=== PATIENT | male | born 1955 | race Caucasian/White ===

== ENCOUNTER 2017-06-10 09:29 | Emergency (ER) | payer MEDICARE, SELFPAY ==
[2017-06-10 09:30] VITALS: BP 146/75; PULSE 77; RESP 22; TEMP 36.8; O2SAT 99; BMI 20.2
--- NOTE | 2017-06-10 09:58 | ED.VISSUMM ---
- ER Visit Summary Date of Service: 06/10/17 Chief Complaint: Left lower abdominal pain History of Present Illness: The patient is a 62 M who presents with left lower abdominal pain for approximately 2 weeks. He denies fever, chills or night sweats. He denies weight gain or weight loss. He denies nausea, vomiting diarrhea. He denies black or maroon stool. He denies dysuria, frequency, urgency or hematuria. He denies history of diverticulosis diverticulitis. Denies history of renal ureterolithiasis. There is no history of trauma. He denies prior problems with his abdomen. Upon further questioning it was determined that he is concerned because there is a family history of colon cancer. He denies any change in the color, consistency or caliber of his stool. He denies change in frequency. He does admit to smoking 1-1.5 packs of cigarettes a day. He does admit to drinking for alcoholic beverages a day and smoking 1-2 joints a day. He smokes marijuana because he does not want to take opiates for his back pain. Physical Examination: Blood pressure is elevated 146/75. He is not well groomed or capped. Head is atraumatic normocephalic. Pupils are equal round reactive. Extraocular muscles are intact. TMs are pearly white with landmarks noted. Nares patent with no drainage. Posterior pharynx without erythema or exudate. Uvula is midline. There is no dysphonia or dysphasia. Trachea is midline. There is no stridor with auscultation of the neck. Heart is regular without murmur, gallop or rub. S1 and S2 are normal. Lungs are clear to auscultation with good movement of air bilaterally. Abdomen is soft and nontender. There is no guarding or peritoneal findings. There is no palpable pulsatile mass. There is no abdominal bruit. Song sign is negative. Negative Rovsing sign. There is no evidence of inguinal or umbilical hernia. Neuro exam is nonfocal. Test Results: White count is normal with 41 segs no bands 45% lymphs. Electronic panel is unremarkable urine is normal Emergency Department Course and Treatment: To evaluate patient's left lower quadrant abdominal pain UA, CBC and BMP were obtained. Differential would include constipation, diverticular disease and urologic problems. Treatment Plan: Patient was informed the cause of his pain is unknown. With a normal white count predominately lymphocytes and a benign examination will discharge to follow-up with his PCP Dr. Bassam Bermudez. Disposition: Discharged to home with appropriate home-going instructions Impression: Left lower quadrant abdominal pain unknown etiology, initial encounter This note was generated with [employer] dictation software. It may contain incorrect words, spelling, and punctuation that were not noted in review of the chart prior to signing ED Disposition - Plan for ED Patient: Disposition: Home or Assisted Living Chief Complaint: Abd Pain Instructions: ED Abdominal Pain Unkn Cause Male Referrals: Bassam Bermudez MD [Primary Care Provider] - 3-5 Days if not improving
[2017-06-10 10:12] LABS: Absolute Lymphocyte Count 2.52 X10^3/ul (0.83-4.51); Absolute Neutrophil Count 2.3 X10^3/uL (2.0-7.7); Basophil# 0.04 X10^3/uL; Basophil% 0.7 % (0-1); Eosinophil# 0.11 X10^3/uL; Hematocrit 43.1 % (40-54); Hemoglobin 14.9 g/dl (13.0-16.5); Lymphocyte # 2.52 X10^3/ul (4.0); Mean Corp Hgb Conc 34.6 g/gl (32-36); Mean Corpuscular Hgb 32.1 pg (27.0-32.0); Mean Corpuscular Volume 92.9 fL (80-94); Mean Platelet Vol. 10.2 fl (6.2-12.0); Monocyte# 0.62 X10^3/uL; Monocyte% 11.1 % (0-10); POSITIVE COUNT NO; POSITIVE DIFFERENTIAL NO; POSITIVE MORPHOLOGY NO; Platelet Count 227 K/mm3 (150-450); RBC Distribution Width CV 13.9 % (11.6-14.6); RBC Distribution Width SD 46.2 fl (35.1-43.9); Red Blood Count 4.64 M/mm3 (4.6-6.2); White Blood Count 5.6 K/mm3 (4.4-11.0)
[2017-06-10 10:18] LABS: Anion Gap 7 (5-15); BUN 21 mg/dL (7-18); BUN/Creat Ratio 25.7 RATIO (10-20); Calcium,Total 8.6 mg/dL (8.5-10.1); Chloride 106 mmol/L (98-107); Creatinine, Serum 0.82 mg/dL (0.70-1.30); EST Glomerular Filtration Rate 102 mL/min (>60); Est Glom Filt Rate - Afr Amer 123 mL/min (>60); Estimated Creatinine Clearance 90.59 ml/min; Glucose 89 mg/dL (74-106); Potassium 4.2 mmol/L (3.5-5.1); Sodium Level 140 mmol/L (136-145)
[2017-06-10 11:06] LABS: Bacteria 0 SEEN /hpf (None Seen); Mucous, Urine 0 SEEN /hpf (<or=2+); Squamous Epithelial Cells - UA 0 SEEN /hpf (0-5); White Blood Cells 0 SEEN /hpf (0-5)
[2017-06-10 11:08] LABS: Color, Urine Yellow (Yellow); Glucose, Dipstick Normal (Normal); Ketone-Dipstick Negative (Negative); Leukocyte Esterase-Dipstick Negative /ul (Negative); Nitrite-Dipstick Negative (Negative); Occult Blood-Urine Negative /ul (Negative); Protein-Dipstick Negative (Negative); Urine Bilirubin Dipstick Negative (Negative); Urine Clarity Clear (Clear); Urine Urobilinogen Normal (Normal)
[2017-06-10 11:15] LABS: Red Blood Cells-Urine 0-5 SEEN /hpf (0-5)
[2017-06-10 12:33] VITALS: BP 151/92; PULSE 65; RESP 16; O2SAT 97
== END 2017-06-10 12:36 | disposition home or self-care (01) ==
PROVIDERS: Emergency Provider Emergency Medicine; Family Provider Family Medicine; PCP Family Medicine
DX: R10.32 Left lower quadrant pain (principal); F12.90 Cannabis use, unspecified, uncomplicated; F17.210 Nicotine dependence, cigarettes, uncomplicated; Z86.73 Personal history of transient ischemic attack (TIA), and cerebral infarction without residual deficits
CPT/HCPCS: 80048; 81001; 85025; 99283

== ENCOUNTER 2017-08-17 07:23 | Day surgery (SDC) | payer MEDICARE, SELFPAY ==
--- NOTE | 2017-08-17 | IMM_PTH ---
PATIENT: LETA PIMENTEL LOC: EN U#:[id number] AGE/SX: 62/M ROOM: RE08/17/[address]: Dr. Bryant Felix MD : 1955 BED: DIS: 08/17/2017 SPEC #: [id number] RECD: 08/19/17 12:07 STATUS: TY CHARLES #: [id number] YAZMIN: 08/17/17 00:[address]: Bryant Felix DEPT: IMMUNOHISTOCHEMISTRY RECD BY: Fatuma Barr ENTERED: 08/19/17 12:08 SP TYPE: IMMUNO OTHR DR: Dr. Ronny Dejesus MD Tissues: F - Stomach, NOS Procedures: H Pylori (initial) PHYSICIAN & INSTITUTION [place] [address] SPECIMEN INFORMATION: Tissue Source: F ? Antrum biopsy Clinical Info: LUQ pain Specimen Number: [id number] CPT code: 86180 METHODOLOGY: Deparaffinized sections of prefer/formalin-fixed tissue or PAP/DQ stained slides are incubated with monoclonal/polyclonal antibodies/oligonucleotide probes. Localization is made via biotin free immunoperoxidase method. Appropriate controls are performed and reacted as expected. Results on target cell population are indicated in the following table: RESULTS: ANTIBODY / CLONE RESULT Block F H Pylori (polyclonal) negative These tests were developed and their performance characteristics determined by [facility]. They may not have been cleared or approved by the U.S. Food and Drug Administration. The FDA has determined that such clearance or approval is not necessary. INTERPRETATION: F. Antrum, biopsy: Negative for Helicobacter pylori organisms. SJ:norma 08/19/17
--- NOTE | 2017-08-17 | COLBX_PTH ---
PATIENT: LETA PIMENTEL LOC: EN U#:[id number] AGE/SX: 62/M ROOM: RE08/17/[address]: Dr. Bryant Felix MD : 1955 BED: DIS: 08/17/2017 SPEC #: [id number] RECD: 08/17/17 11:44 STATUS: TY CHARLES #: [id number] YAZMIN: 08/17/17 00:[address]: Bryant Felix DEPT: SURGICAL PATHOLOGY RECD BY: Alexander Crockett ENTERED: 08/19/17 11:45 SP TYPE: COLON BX OTHR DR: Dr. Ronny Dejesus MD Tissues: A - Transverse colon B - Sigmoid colon biopsy C - Sigmoid colon biopsy D - Sigmoid colon biopsy E - Rectum, NOS F - Gastric mucous membrane G - Gastric mucous membrane Procedures: Special Stain Group II Surgery Specimen Level IV Alcian Blue/PAS (control) HEADER OPERATION: Colonoscopy PRE-OP DIAGNOSIS: LLQ pain, family history colon CA TISSUE SUBMITTED: A ? Transverse colon polyp, B ? 20 cm sigmoid colon polyp, C ? 15 cm mid sigmoid colon polyp, D ? 10 cm mid sigmoid colon polyp, E ? Proximal rectum polyp, F ? Antrum biopsy for H. pylori and path, G ? GE junction biopsies MICROSCOPIC DIAGNOSIS A. Transverse colon polyp: Fragments of tubular adenoma. B. 20 cm sigmoid colon polyp: Fragments of tubular adenoma. C. 15 cm mid sigmoid colon polyp: Hyperplastic polyp D. 10 cm mid sigmoid colon polyp: Tubular adenoma. E. Proximal rectum polyp: Fragments of tubular adenoma. F. Antrum, biopsy: Mild gastritis. See microscopic description and comment. G. GE junction, biopsy: Fragments of gastroesophageal mucosa with chronic inflammation. Intestinal metaplasia (goblet cell metaplasia) is not identified. See comment. SJ:norma 08/20/17 COMMENT F. The results of immunohistochemistry for Helicobacter pylori will be reported separately ([id number]). G. Alcian blue/PAS stain with matched control is used in the evaluation of the specimen. MICROSCOPIC DESCRIPTION Slides are reviewed. F. The specimen shows fragments of gastric mucosa with chronic inflammatory cell infiltrates in the lamina propria consisting of lymphocytes and plasma cells, consistent with mild chronic gastritis. GROSS DESCRIPTION A - Received in fixative is one container labeled with the patient's name and designated transverse colon polyp. The specimen consists of two irregular fragments of light alford soft tissue that in aggregate measure 0.5 x 0.3 x 0.1 cm. The specimen is totally submitted in one cassette. B - Received in fixative is one container labeled with the patient's name and designated 20 cm sigmoid colon polyp. The specimen consists of three pieces of alford-pink polyp that in aggregate measure 1.5 x 1 x 0.3 cm. The specimen is totally submitted in one cassette. C - Received in fixative is one container labeled with the patient's name and designated 15 cm mid sigmoid colon polyp. The specimen consists of one alford-pink polyp measuring 0.5 x 0.5 x 0.3 cm. The specimen is totally submitted in one cassette. D - Received in fixative is one container labeled with the patient's name and designated 10 cm mid sigmoid colon polyp. The specimen consists of one alford-pink polyp measuring 1 x 0.6 x 0.5 cm. The specimen is bisected and totally submitted in one cassette. E - Received in fixative is one container labeled with the patient's name and designated proximal rectum polyp. The specimen consists of two pieces of alford-pink polyp that in aggregate measure 1.5 x 0.5 x 0.3 cm. The specimen is totally submitted in one cassette. F - Received in fixative is one container labeled with the patient's name and designated antrum biopsy. The specimen consists of two irregular fragments of light alford soft tissue that in aggregate measure 0.6 x 0.2 x 0.1 cm. The specimen is totally submitted in one cassette. G - Received in fixative is one container labeled with the patient's name and designated GE junction biopsy. The specimen consists of multiple irregular fragments of light alford soft tissue that in aggregate measure 0.7 x 0.5 x 0.1 cm. The specimen is totally submitted in one cassette. / SJ:rg 08/17/17 TC:1 CPT: 70770 x7, 74131
--- NOTE | 2017-08-17 07:23 | DT_ITS ---
This patient was seen during an EMR downtime August 16, 2017 - August 23, 2017. This patient may have a combination of paper and electronic documentation or all paper documentation. All documentation is viewable within the e-chart portion of [facility] for each patient visit.
== END 2017-08-17 09:44 | disposition home or self-care (01) ==
LOC: EN 08-18 16:53
PROVIDERS: Family Provider Family Medicine; PCP Family Medicine; Visit Provider Surgery
PROC: 0DJD8ZZ Inspection of Lower Intestinal Tract, Via Natural or Artificial Opening Endoscopic (ICD-10-PCS; CPT 45378; principal; 2017-08-17 08:25)
DX: K21.9 Gastro-esophageal reflux disease without esophagitis (principal); Z80.0 Family history of malignant neoplasm of digestive organs; R68.81 Early satiety; D12.7 Benign neoplasm of rectosigmoid junction; D12.5 Benign neoplasm of sigmoid colon; D12.3 Benign neoplasm of transverse colon; K29.70 Gastritis, unspecified, without bleeding; R10.32 Left lower quadrant pain; R10.12 Left upper quadrant pain; I10 Essential (primary) hypertension; G25.81 Restless legs syndrome; Z86.73 Personal history of transient ischemic attack (TIA), and cerebral infarction without residual deficits; F17.200 Nicotine dependence, unspecified, uncomplicated; Z09 Encounter for follow-up examination after completed treatment for conditions other than malignant neoplasm; Z86.19 Personal history of other infectious and parasitic diseases
CPT/HCPCS: 43239; 45385; 88305; 88313; 88342; J7120

== ENCOUNTER → 2017-09-14 14:54 | Outpatient (CLI) | payer MEDICARE, SELFPAY ==
--- NOTE | 2017-09-14 11:00 | PROSBIL_PTH ---
PATIENT: LETA PIMENTEL LOC: [facility] U#:[id number] AGE/SX: 69/M ROOM: RE09/14/[address]: Dr. Dave Almanza MD : 1955 BED: DIS: SPEC #: [id number] RECD: 09/14/17 14:51 STATUS: TY CHARLES #: [id number] YAZMIN: 09/14/17 11:[address]: Dave Almanza DEPT: SURGICAL PATHOLOGY RECD BY: Colby Weiner ENTERED: 09/16/17 07:59 SP TYPE: PROST BX SORAYA DR: Dr. Ronny Dejesus MD Tissues: A - PROSTATE RIGHT B - PROSTATE RIGHT C - PROSTATE RIGHT D - PROSTATE LEFT E - PROSTATE LEFT F - PROSTATE LEFT Procedures: PROSTATE BX HEADER OPERATION: Prostate biopsy PRE-OP DIAGNOSIS: Elevated PSA TISSUE SUBMITTED: A - Right apex, B - Right mid, C - Right base, D - Left apex, E - Left mid, F - Left base MICROSCOPIC DIAGNOSIS A. Right prostate, apex, core biopsy: Adenocarcinoma: [place] grade: 6 (3+3) Cores involved: 1 out of 1 Tissue involved: >95% Greatest tumor length: 8 mm B. Right prostate, mid, core biopsy: Adenocarcinoma: [place] grade: 7 (3+4) Cores involved: 1 out of 1 Tissue involved: >95% Greatest tumor length: 14 mm C. Right prostate, base, core biopsy: Adenocarcinoma: [place] grade: 7 (3+4) Cores involved: 2 out of 2 Tissue involved: 85% Greatest tumor length: 13 mm Perineural invasion: Present D. Left prostate, apex, core biopsy: Benign prostatic tissue. E. Left prostate, mid, core biopsy: Benign prostatic tissue. F. Left prostate, base, core biopsy: Adenocarcinoma: [place] grade: 6 (3+3) Cores involved: 1 out of 1 Tissue involved: 2% Greatest tumor length: 1 mm AM:norma 09/17/17 MICROSCOPIC DESCRIPTION Slides are reviewed. GROSS DESCRIPTION A - Received is one container designated prostate, right apex. The specimen consists of one elongated fragment of light alford-white soft tissue measuring 1 cm in length and 0.1 cm in diameter. The specimen is totally submitted in one cassette. B - Received is one container designated prostate, right mid. The specimen consists of one elongated fragment of light alford-white soft tissue measuring 2 cm in length and 0.1 cm in diameter. The specimen is totally submitted in one cassette. C - Received is one container designated prostate, right base. The specimen consists of two elongated fragments of light alford-white soft tissue each measuring 1.5 cm in length and 0.1 cm in diameter. The specimen is totally submitted in one cassette. D - Received is one container designated prostate, left apex. The specimen consists of one elongated fragment of light alford-white soft tissue measuring 2 cm in length and 0.1 cm in diameter. The specimen is totally submitted in one cassette. E - Received is one container designated prostate, left mid. The specimen consists of one elongated fragment of light alford-white soft tissue measuring 1.5 cm in length and 0.1 cm in diameter. The specimen is totally submitted in one cassette. F - Received is one container designated prostate, left base. The specimen consists of two elongated fragments of light alford-white soft tissue each measuring 1 cm in length and 0.1 cm in diameter. The specimen is totally submitted in one cassette. / AM:rg 09/16/17 TC:0 CPT: G0146
== END ==
PROVIDERS: Family Provider Family Medicine; PCP Family Medicine; Visit Provider Urology
DX: R97.20 Elevated prostate specific antigen [PSA] (principal)
CPT/HCPCS: 88305; G0416

== ENCOUNTER → 2017-09-27 09:48 | Outpatient (CLI) | payer MEDICARE, SELFPAY ==
--- NOTE | 2017-09-27 09:50 | NM_ITS ---
CLINICAL: 62-year-old male with recent diagnosis of prostate carcinoma. WHOLE BODY 99m Tc MDP RADIONUCLIDE BONE SCINTIGRAPHY COMPARISON: None available FINDINGS: Following the intravenous administration of 26.0 mCi of 99m Tc MDP, whole body bone images reveal: 1. Increased radiopharmaceutical concentration is identified in the acromioclavicular compartments of both shoulders, bilateral elbows, right-left knees. 2. The remaining skeletal structures are scintigraphically unremarkable with normal-appearing renal images and urinary bladder activity identified. NM/Bone Scan Whole Body IMPRESSION: 1. The increase in radiopharmaceutical concentration defined in the right-left shoulders, bilateral elbows, both knee articulations is most consistent with degenerative arthritis. 2. There is no definitive typical scintigraphic evidence of diffuse axial skeletal metastatic disease on the current examination. Electronically Signed: Colby Gregory DO at 11:17 EDT Tel , Service support ,
== END ==
LOC: NM 09:49
PROVIDERS: Family Provider Family Medicine; PCP Family Medicine; Visit Provider Urology
DX: C61 Malignant neoplasm of prostate (principal)
CPT/HCPCS: 78306

== ENCOUNTER → 2017-10-06 13:53 | Outpatient (CLI) | payer MEDICARE, SELFPAY ==
--- NOTE | 2017-10-06 13:56 | CT_ITS ---
STUDY: CT ABDOMEN AND PELVIS WITH CONTRAST REASON FOR EXAM: Male, 62 years old. Prostate cancer RADIATION DOSAGE (If Supplied By Facility): CTDIvol = ( 9.00 ) mGy, DLP = ( 376.36 ) mGycm TECHNIQUE: Transaxial images were obtained from the dome of the diaphragm to the symphysis pubis without oral contrast. 100 ml of Isovue 300 contrast was administered. Sagittal and coronal images were reconstructed. Individualized dose optimization techniques were used for this CT. COMPARISON: None. FINDINGS: The visualized lung bases are clear. The visualized portions of the heart and pericardium are within normal limits. There are no calcified gallstones present. There are subcentimeter hypodensities in the liver which are too small to characterize. However, these likely represent cysts. There are no suspicious hepatic lesions. The spleen is normal in size. The pancreas is within normal limits. The adrenal glands are within normal limits. There are no renal or ureteral stones. There is no hydronephrosis. There are no focal renal lesions. Normal visualized stomach. There is no bowel obstruction or inflammation. The appendix is not visualized, but there are no findings to suggest acute appendicitis. The aorta is normal in caliber. There is no abdominal or pelvic free air, free fluid, fluid collection or lymphadenopathy. There are no destructive osseous lesions. CT/Abdomen/Pelvis WITH Contrast IMPRESSION: No evidence of metastatic disease in the abdomen or pelvis. Electronically Signed: Joe Whittington, at 17:12 EDT Tel , Service support ,
[2017-10-06 15:01] LABS: CREATININE FINGERSTICK < 0.6 mg/dL (0.70-1.30)
== END ==
LOC: CT 13:54
PROVIDERS: Family Provider Family Medicine; PCP Family Medicine; Visit Provider Urology
DX: C61 Malignant neoplasm of prostate (principal)
CPT/HCPCS: 74177; Q9967

== ENCOUNTER 2017-11-17 05:38 | Day surgery (SDC) | payer MEDICARE, SELFPAY ==
[2017-11-11 15:13] LABS: Hematocrit 44.8 % (40-54); Mean Corp Hgb Conc 33.5 g/gl (32-36); Mean Corpuscular Hgb 31.5 pg (27.0-32.0); Mean Corpuscular Volume 94.1 fL (80-94); Mean Platelet Vol. 10.2 fl (6.2-12.0); Platelet Count 229 K/mm3 (150-450); RBC Distribution Width CV 14.2 % (11.6-14.6); RBC Distribution Width SD 48.7 fl (35.1-43.9); Red Blood Count 4.76 M/mm3 (4.6-6.2); White Blood Count 6.6 K/mm3 (4.4-11.0)
[2017-11-11 15:21] LABS: Scan Indicated on CBC? Y/N NO
[2017-11-11 15:39] LABS: ALB/GLOB Ratio 1.3 RATIO (0.9-2.4); AST(SGOT) 13 U/L (15-37); Alanine Aminotransfer ALT/SGPT 21 U/L (16-61); Albumin, Serum 3.8 g/dL (3.2-5.0); Alkaline Phosphatase 78 U/L (45-117); Anion Gap 6 (5-15); BUN 16 mg/dL (7-18); BUN/Creat Ratio 18.6 RATIO (10-20); Calcium,Total 8.7 mg/dL (8.5-10.1); Chloride 108 mmol/L (98-107); Creatinine, Serum 0.86 mg/dL (0.70-1.30); EST Glomerular Filtration Rate 96 mL/min (>60); Est Glom Filt Rate - Afr Amer 116 mL/min (>60); Glucose 88 mg/dL (74-106); Potassium 4.3 mmol/L (3.5-5.1); Protein, Total 6.8 g/dL (6.4-8.2); Sodium Level 144 mmol/L (136-145)
[2017-11-17] VITALS (12 sets, daily range): BP systolic 95–137; BP diastolic 42–82; PULSE 57–78; RESP 16–18; TEMP 36.4–37.2; O2SAT 85–99; BMI 19.1
--- NOTE | 2017-11-17 | PROST_PTH ---
PATIENT: LETA PIMENTEL LOC: [facility] U#:[id number] AGE/SX: 62/M ROOM: RE11/17/[address]: Dr. Dave Almanza MD : 1955 BED: DIS: 11/18/2017 SPEC #: [id number] RECD: 11/17/17 09:54 STATUS: TY CHARLES #: [id number] YAZMIN: 11/17/17 00:[address]: Dave Almanza DEPT: SURGICAL PATHOLOGY RECD BY: Fatuma Barr ENTERED: 11/17/17 10:26 SP TYPE: PROSTATE OTHR DR: Dr. Ronny Dejesus MD Tissues: A - Prostate, NOS B - Prostate, NOS C - Lymph node of pelvis, NOS D - Lymph node of pelvis, NOS E - Adipose tissue F - Prostate, NOS Procedures: Frozen Section (charge) Surgery Specimen Level IV Surgery Specimen Level V Frozen (no charge) HEADER OPERATION: Laparoscopic robotic radical prostatectomy PRE-OP DIAGNOSIS: Prostate cancer, elevated PSA TISSUE SUBMITTED: A ? Anterior margin prostate sent as FS at 0950 to lab, B ? Prostate, C ? Right pelvic lymph node, D ? Left pelvic lymph node, E ? Fat over prostate, F ? Right inferior margin FROZEN SECTION DIAGNOSIS A. Right anterior prostate margin, biopsy: Negative for carcinoma. AM:norma 11/17/17 MICROSCOPIC DIAGNOSIS A. Right anterior prostate margin, biopsy: Negative for carcinoma. B. Prostate, radical prostatectomy: Adenocarcinoma. See cancer checklist below. C. Right pelvic lymph nodes, regional lymphadenectomy: Four out of four lymph nodes negative for carcinoma. D. Left pelvic lymph nodes, regional lymphadenectomy: Two out of two lymph nodes negative for carcinoma. E. Fat over prostate, biopsy: Adipose tissue. No evidence of malignancy. F. Right inferior margin, biopsy: Fragment of fibromuscular and fibrofatty tissue. No evidence of carcinoma. AM:norma 11/19/17 COMMENT PROSTATE CANCER (RADICAL) SUMMARY: Procedure ? radical prostatectomy Prostate size ? 4.5 x 4 x 3.8 cm Prostate weight ? 44 gm Lymph node sampling ? pelvic lymph node dissection (specimens C & D) Histologic type - adenocarcinoma Histologic grade ([place] Pattern): Primary pattern - 4 Secondary pattern - 3 Total [place] score - 7 Tumor Quantitation: Tumor size ? 3.8 x 2.7 x 1.5 cm Extraprostatic extension ? present, focal (right posterior lateral region) Seminal vesicle invasion ? not identified Margins ? uninvolved by invasive carcinoma. Treatment effect on carcinoma ? not identified Lymph-Vascular invasion - not identified Perineural invasion ? present, extensive Regional lymph nodes ? see specimens C and D. Number examined - 6 Number involved - 0 Distant metastasis - unknown Additional pathologic findings - Focal high-grade prostatic intraepithelial neoplasia and mild chronic inflammation. PATHOLOGIC STAGE: pT3a N0 Mx Adenocarcinoma is present in the shaved distal ureteral margin section. The above summary is in compliance with [employer] (CAP) Cancer Protocols Checklist and [place] Joint Committee on Cancer (AJCC), Staging Manual, 8th Ed. Reference is made to the patient?s previous prostate needle core biopsies ([id number]) in which adenocarcinoma, [place] grade 7 (3+4) was identified with perineural invasion. Case has been reviewed in consultation with Dr. Boswell who concurs with the above diagnosis. IDC:SJ MICROSCOPIC DESCRIPTION Slides are reviewed. GROSS DESCRIPTION A - Received fresh for frozen section consultation labeled with the patient's name is a specimen designated right anterior margin. The specimen consists of an irregular fragment of pink-alford soft tissue measuring 0.8 x 0.4 x 0.2 cm. The specimen is submitted in its entirety for frozen section consultation. / AM:norma 11/17/17 B - Received in fixative is one container labeled with the patient's name and designated prostate. The specimen consists of a prostate gland with attached right and left seminal vesicles weighing 44 gm. The prostate measures 4.5 cm transversely, 4 cm craniocaudally and 3.8 cm anterior-posteriorly. The apex of the gland is conical in shape. No mass lesions are grossly palpated. The specimen is differentially inked as follows: anterior ? red, right half ? blue, left half ? green and entire posterior surface ? black. The specimen is left for additional overnight fixation. / AM: 11/17/17 The specimen is serially sectioned from apex to base at approximately 3 to 4 mm intervals. Serial sections do not reveal a mass lesion. No distinct rubbery nodularity is identified. [employer] sections are submitted in 19 cassettes as follows: 1 ? distal urethral shaved margin, 2 ? proximal urethral shaved margin, 3 ? seminal vesicles, 4 ? most basal section of prostate, 5-7 ? apex, 8-13 ? mid portion of prostate, 14-19 ? basal portion of prostate. / AM: 11/18/17 C - Received in fixative is one container labeled with the patient's name and designated right pelvic lymph node. The specimen consists of an irregular fragment of light alford soft tissue that measures 2.5 x 2 x 0.2 cm. The specimen is submitted in its entirety in one cassette. / AM: 11/17/17 D - Received in fixative is one container labeled with the patient's name and designated left pelvic lymph node. The specimen consists of two irregular fragments of light alford soft tissue that measures 2.5 x 2 x 0.5 cm. The specimen is totally submitted in two cassettes. / AM: 11/17/17 E - Received in fixative is one container labeled with the patient's name and designated fat over prostate. The specimen consists of two irregular fragments of yellow fatty tissue that in aggregate measure 3.5 x 3 x 0.2 cm. The specimen is totally submitted in two cassettes. / AM: 11/17/17 F - Received in fixative is one container labeled with the patient's name and designated right inferior margin. The specimen consists of an irregular fragment of alford tissue measuring 0.5 x 0.2 x 0.1 cm. The specimen is totally submitted in one cassette. / AM: 11/17/17 TC:0 CPT: 61489 x3, 12695 x2, 08779
[2017-11-17] MEDS: Cefazolin 2 GM in 0.9% Normal Saline 100 ML IV (07:26)
[2017-11-17] MEDS: Bupivacaine Mpf 0.5% 30 ML VIAL (10:45)
--- NOTE | 2017-11-17 10:53 | PCM.OPRPT ---
Problem List (1) Prostate cancer Status: Acute Report of Operation Date of Procedure: 11/17/17 Pre-Operative Diagnosis: Prostate cancer Post-Operative Diagnosis: Same Surgery/Procedure Performed:: Laparoscopic robotic assisted radical prostatectomy with left nerve sparing, bilateral pelvic lymph node dissection, suture suspension of the urethra, EMG monitoring of the pelvic nerves Description of Surgical Findings:: 62-year-old male prostate cancer is elected to undergo radical prostatectomy for curative intent he understands that there is a risk of permanent loss of erections and also risk of incontinence after the surgery and we talked about the healing process and what to expect after the surgery. 62-year-old male taken back to the operating room after smooth induction of general anesthesia he was placed supine on the table he was then placed in dorsal lithotomy position with the legs in stirrups approach for a radical prostatectomy, the abdomen was shaved prepped and draped in usual sterile fashion, infiltrated above the umbilicus with lidocaine, I then made an incision above the umbilicus, I then put the Veress needle into the peritoneal cavity and into all treated the peritoneal cavity with CO2 gas and created a pneumoperitoneum. 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 I first started by identifying the anatomy he had a fairly skinny male severely easily to identify the anatomy to identify the right vas deferens traced this down below the bladder and dissected out the right vas deferens and then identified the right seminal vesicle we used minimal electrocautery as we dissected this out. I then dissected out the left vas deferens and left seminal vesicle again using very minimal electrocautery and only bipolar and dissecting this out I then created a space underneath the prostate towards the apex we then pulled out of the pelvis we dropped the bladder created the space of Retzius put the bladder on traction I then went to the right side and did the lymph node dissection on the right side cleared out the lymph node tissue between the external iliac vein lateral pelvic sidewall and obturator nerve these were identified clips were placed and electrocautery used to dissect the lymph node tissue there was no enlarged lymph nodes these were sent off appeared need to be negative. I then went to the left side again identified the left external iliac vein lateral pelvic sidewall obturator nerve dissected out the lymph node tissue in the space this was sent off as a specimen again appeared to be negative since there is no enlarged lymph nodes. Bladder was then placed on traction. I then went to the apex we incised the endopelvic fascia on both sides we cleaned the prostate off the levator muscles on both sides all the way up to the apex dissected the apex transected through the puboprostatic ligaments and support of the apical tissue of the prostate I then placed a stitch to the dorsal vein complex came back to the junction between the bladder and prostate and then dissected to the bladder and prostate using electrocautery down to the attachment of the bladder to the prostate and then dissected posteriorly until I got to the seminal vesicles and vas deferens we then placed lateral traction of the prostate in the right side came to the pedicles of the prostate in the right side and then identified the neurovascular bundle on the right side try to peel this off it is really stuck to the prostate this is the side with more cancer did not force it and only did a partial nerve sparing on that side as a came to the apex of the prostate in the right side also some rectal fibers were really stuck to the prostate he had to be carefully teased off the prostate bottom then went to the left side came to the PET the pedicle of the prostate the left side and then identified the neurovascular bundle decide the neurovascular bundle peeled off the prostate very nicely without any adherence all the way up to the apex we then transected through the dorsal vein complex I placed an extra stitch in the dorsal vein complex circumferentially dissected all the way around the urethra we know he had cancer in the apex of the prostate so very carefully identified the junction between the urethra and the apex of the prostate making sure that the leaving the muscle tissue behind her potential cancer Transected to the prostate and the urethra. And then pulled back the catheter and then try to transected the posterior aspect of the attachments of the prostate to the urethra prostate was then free put in Endo Catch bag I then inspected the rectum there was no obvious injury to the rectum we also filled the rectum with gas just to check it and there was no bubbles and no leakage. We then made sure there was hemostasis which there was and then we performed the suture suspension of the urethra. After this was done then we did check the pelvic nerves with the EMG monitoring with post put the trocar through the midline abdomen we introduced the one electrode down into the pelvis were put into the levator muscles we then checked action potential on the right side it was reported to have some minimal action potential seen we traced along the lateral pelvic wall to make sure that this was all intact which was then we went to the left side checked the action potential in the left side and there was action potential we then went to the sphincter put 1 of the EMG monitors through the sphincter and we able to see the sphincter coapted and there was good response of the sphincter. So after checking the nerves with EMG monitoring we then pulled out those electrodes I then completed these suspension of the urethra with stitches between the bladder neck and the urethra over a catheter and then once this was completed then we flushed the catheter was no leakage from the anastomosis we then extracted the prostate to the up supra umbilical port closed with the ports with stitches closer Kalia closed our 1012 trocar with a Kalia Cook stitch and then closed our umbilical port extraction site with interrupted 0 Vicryl subcuticular stitches were placed bandages were placed patient was extubated and taken back to the PACU in good condition. Type of Anesthesia:: General Drains: May - Admit VTE Documentation VTE Present on Admission: No VTE Mechan Device Prophylaxis: SCD's
[2017-11-17 11:32] LABS: Hematocrit 40.1 % (40-54); Hemoglobin 13.6 g/dl (13.0-16.5); Mean Corp Hgb Conc 33.9 g/gl (32-36); Mean Corpuscular Hgb 31.9 pg (27.0-32.0); Mean Corpuscular Volume 94.1 fL (80-94); Mean Platelet Vol. 10.1 fl (6.2-12.0); Platelet Count 200 K/mm3 (150-450); RBC Distribution Width CV 14.1 % (11.6-14.6); Red Blood Count 4.26 M/mm3 (4.6-6.2); White Blood Count 11.3 K/mm3 (4.4-11.0)
[2017-11-17 11:33] LABS: Scan Indicated on CBC? Y/N NO
[2017-11-17 11:35] LABS: Anion Gap 7 (5-15); BUN 13 mg/dL (7-18); BUN/Creat Ratio 14.3 RATIO (10-20); Calcium,Total 8.1 mg/dL (8.5-10.1); Chloride 109 mmol/L (98-107); Creatinine, Serum 0.91 mg/dL (0.70-1.30); EST Glomerular Filtration Rate 90 mL/min (>60); Est Glom Filt Rate - Afr Amer 109 mL/min (>60); Glucose 149 mg/dL (74-106); Potassium 4.8 mmol/L (3.5-5.1); Sodium Level 143 mmol/L (136-145)
--- NOTE | 2017-11-17 12:34 | NURSING ---
Pt. adamant that he get up to commode at this time= states I have to poop! Patient getting agitated and this RN assisted pt into bathroom at his time. Pt also reports feeling of need to urinate= pt reminded that he has a catheter that can make it feel like pt needs to urinate. Also reminded of surgery and that inflammation and gas- may be causing sensation. Patient adamant that he sit on commode for > 30 minutes- awaiting to complete pt's assessment. Pt. family reports no residual from TIA- just some tingling to left side that was noticed after back surgery.
[2017-11-17] MEDS: Ondansetron 4 MG/2 ML Vial IV (12:48)
[2017-11-17] MEDS: 0.9% NaCl Peripheral Flush Adult/Peds IV ×3 (12:49→17:56)
[2017-11-17] MEDS: Ketorolac 15 MG/ML Vial IV ×3 (12:57→23:33)
--- NOTE | 2017-11-17 13:31 | NURSING ---
cipro and colace held at this time due to pt request- due to nausea.
[2017-11-17] MEDS: Lactated Ringers 1,000 ML 125 ML IV ×2 (14:08→21:07)
[2017-11-17] MEDS: Docusate Sodium 100 MG Capsule 200 MG PO ×2 (14:17→21:07)
[2017-11-17] MEDS: Ciprofloxacin 500 MG Tablet PO ×2 (14:25→21:07)
[2017-11-17] MEDS: Metoclopramide 10 MG/2 ML Vial IV (17:55)
[2017-11-17] MEDS: Acetaminophen 325 MG Tablet PO (21:07)
[2017-11-18] MEDS: Lactated Ringers 1,000 ML 125 ML IV (05:17)
[2017-11-18] MEDS: Ketorolac 15 MG/ML Vial IV (05:17)
[2017-11-18 05:29] VITALS: BP 136/79; PULSE 66; RESP 16; TEMP 37.1; O2SAT 98
[2017-11-18 06:35] LABS: Hemoglobin 12.5 g/dl (13.0-16.5); Mean Corp Hgb Conc 32.9 g/gl (32-36); Mean Corpuscular Hgb 30.9 pg (27.0-32.0); Mean Corpuscular Volume 94.1 fL (80-94); Mean Platelet Vol. 10.2 fl (6.2-12.0); Platelet Count 190 K/mm3 (150-450); RBC Distribution Width CV 13.9 % (11.6-14.6); RBC Distribution Width SD 47.7 fl (35.1-43.9); Red Blood Count 4.04 M/mm3 (4.6-6.2); White Blood Count 11.3 K/mm3 (4.4-11.0)
[2017-11-18 06:40] LABS: Scan Indicated on CBC? Y/N NO
[2017-11-18 06:48] LABS: Anion Gap 8 (5-15); BUN 13 mg/dL (7-18); BUN/Creat Ratio 15.6 RATIO (10-20); Chloride 106 mmol/L (98-107); Creatinine, Serum 0.84 mg/dL (0.70-1.30); EST Glomerular Filtration Rate 99 mL/min (>60); Est Glom Filt Rate - Afr Amer 120 mL/min (>60); Estimated Creatinine Clearance 85.95 ml/min; Glucose 120 mg/dL (74-106); Potassium 3.7 mmol/L (3.5-5.1); Sodium Level 142 mmol/L (136-145)
--- NOTE | 2017-11-18 07:27 | PCM.DC.URO ---
Discharge Diet: Light diet - advance as tolerated Discharge Activity: May not drive while taking narcotic pain medications. Lifting Restrictions: no lifting Call your doctor if your incision/area has: Continuous Slow Oozing, Sudden Increased Bleeding, Increased Pain/ Swelling, Increased Redness, Foul Smelling Discharge, Swelling at the incision site Call your doctor if you observe: Fever of 101 or Higher, Inability to urinate, Inability to have a bowel movement, Uncontrolled pain Suture Line Care: Avoid Pulling/Pushing, Avoid Pinching/Bending Catheter: May to leg bag, May to large bag Drain: [place] Instructions: Discharge Instructions for Radical Prostatectomy Allergies/Adverse Reactions: Allergies No Known Allergies Allergy (Verified 11/11/17 13:33) Medications to take at Discharge Ciprofloxacin [Cipro] 500 mg PO BID #20 tab 11/17/17 Docusate Sodium [Colace] 100 mg PO BID #20 cap 11/17/17 Hydrocodone/Acetaminophen [[place] 5-325 Tablet] 1 ea PO Q4H PRN PRN 7 Days #14 tab 11/17/17 The following prescriptions were given: Hydrocodone/Acetaminophen [[place] 5-325 Tablet] 1 ea PO Q4H PRN PRN 7 Days #14 tab PRN Reason: Pain Ciprofloxacin [Cipro] 500 mg PO BID #20 tab Docusate Sodium [Colace] 100 mg PO BID #20 cap Primary Care Physician: Ronny Dejesus [Primary Care Provider] - Test Results: Test results from this visit will be discussed in further detail at your follow-up appointment, if applicable. Please Follow Up With: Dave Almanza MD When: please call to make an appointment- 10 days
[2017-11-18 09:35] VITALS: BP 135/78; PULSE 66; RESP 18; TEMP 36.9; O2SAT 99
[2017-11-18] MEDS: Ciprofloxacin 500 MG Tablet PO (09:37)
[2017-11-18] MEDS: Docusate Sodium 100 MG Capsule 200 MG PO (09:37)
== END 2017-11-18 10:05 | disposition home or self-care (01) ==
LOC: SDC 05:39 → AC 05:39 → MS2 11:32
PROVIDERS: Family Provider Family Medicine; PCP Family Medicine; Visit Provider Urology
PROC: 0VT04ZZ Resection of Prostate, Percutaneous Endoscopic Approach (ICD-10-PCS; CPT 55866; principal; 2017-11-17 07:10)
DX: C61 Malignant neoplasm of prostate (principal); N40.2 Nodular prostate without lower urinary tract symptoms; F17.210 Nicotine dependence, cigarettes, uncomplicated; F12.90 Cannabis use, unspecified, uncomplicated; Z86.73 Personal history of transient ischemic attack (TIA), and cerebral infarction without residual deficits
CPT/HCPCS: 38571; 55866; 36415; 71046; 80048; 80053; 85027; 86850; 86900; 86920; 86922; 88304; 88305; 88307; 88309; 88331; 93005; 94762; J7120; A4216; J2405

== ENCOUNTER → 2018-02-14 08:10 | Outpatient (CLI) | payer MEDICARE, SELFPAY ==
[2017-11-17 12:14] VITALS: BMI 19.1
[2018-02-14 09:45] LABS: PSA,Total- Diagnostic 0.29 ng/mL (0.0-4.0)
--- OUTSIDE RECORDS SUMMARY | 2018-04-09 08:05 | XMS RPT_ITS ---
:1955 Author Organization OHIP Care Team Providers Name Role Phone Navneet Martin Attending Unavailable Abrahan Day Primary Care Unavailable Bassam Bermudez Primary Care Unavailable Jovany Ayala Attending Unavailable Bryant Felix Attending Unavailable Bassam Bermudez Primary Care Unavailable HUBER DEJESUS Referring Unavailable Bryant Felix Attending Unavailable Bryant Felix Referring Unavailable HUBER DEJESUS Primary Care Unavailable Bryant Felix Attending Unavailable Archie, Georgi Attending Unavailable TOMCHAK, HUBER Primary Care Unavailable Archie, Georgi Attending Unavailable Archie, Georgi Referring Unavailable TOMCHAK, HUBER Primary Care Unavailable Archie, Georgi Attending Unavailable Archie, Dave Lemons Referring Unavailable TOMCHAK, HUBER Primary Care Unavailable Archie, Dave Lemons Attending Unavailable TOMCHAK, HUBER Primary Care Unavailable Archie, Dave Lemons Referring Unavailable Jc Rigoberto Attending Unavailable Archie, Dave Lemons Referring Unavailable Archie, Dave Lemons Attending Unavailable TOMCHAK, HUBER Primary Care Unavailable Archie, Dave Lemons Referring Unavailable PROBLEMS PROBLEMS DATE TYPE CONDITION / CODE ATTENDING STATUS SOURCE 11/18/2017 Unknown C61 - Malignant ArchieDave youssef Active [facility] neoplasm of prostate / [facility] C61(ICD-10) Hospital Repository 12/10/2017 Unknown R00.1 - BradycardiaJc Daniel Active [facility] unspecified / [facility] R00.1(ICD-10) Hospital Repository 12/10/2017 Unknown R94.31 - Abnormal Rigoberto Tyler Active [facility] electrocardiogram [facility] [ECG] [EKG] / Hospital R94.31(ICD-10) Repository 09/08/2017 Unknown R10.12 - Left upper [place], Active [facility] quadrant pain / [facility] R10.12(ICD-10) Hospital Repository 09/08/2017 Unknown R10.32 - Left lower [place], Active [facility] quadrant pain / [facility] R10.32(ICD-10) Hospital Repository 08/02/2017 Unknown Z80.0 - Family history Isidro, Active [facility] of malignant neoplasm [facility] of digestive organs / Hospital Z80.0(ICD-10) Repository PROCEDURES PROCEDURES No Procedure Records FoundRESULTS RESULTS PSA,TOTAL- DIAGNOSTIC Collected: 02/14/2018 Status: F Source: [facility] 8[facility] TYPE CODE TESTS RESULT OUT OF RANGE REFERENCE UNITS LAB L501.9940 0.0-4.0 ng/mL PSA, Normal DIAGNOSTIC 0.29 Result Comment: This test was performed using the TPSA assay method for the [place] chemistry system. Values obtained with different assay methods cannot be used interchangably. When changing PSA assays in the course of monitoring a patient, additional sequential testing should be carried out to confirm baseline values. Performed By: #### L501.9940 #### [facility] [address] [place], [address] DISCHARGE INSTRUCTION Observed: 11/18/2017 Status: F Source: MANDI 7:28 AM [facility] REPOSITORY [facility] Medical Records Department [address] [place] [address] Instructions for Home/Discharge Instructions 11/18/17 0727 MR#: [id number] Acct: [id number] Name: LETA PIMENTEL Rep #: [id number] : 1955 62 From: Dave Almanza MD PCP: Huber Dejesus MD Status: REG [facility] Discharge Diet: Light diet - advance as tolerated Discharge Activity: May not drive while taking narcotic pain medications. Lifting Restrictions: no lifting Call your doctor if your incision/area has: Continuous Slow Oozing, Sudden Increased Bleeding, Increased Pain/ Swelling, Increased Redness, Foul Smelling Discharge, Swelling at the incision site Call your doctor if you observe: Fever of 101 or Higher, Inability to urinate, Inability to have a bowel movement, Uncontrolled pain Suture Line Care: Avoid Pulling/Pushing, Avoid Pinching/Bending Catheter: May to leg bag, May to large bag Drain: [place] Instructions: Discharge Instructions for Radical Prostatectomy Allergies/Adverse Reactions: Allergies No Known Allergies Allergy (Verified 11/11/17 13:33) Medications to take at Discharge Ciprofloxacin [Cipro] 500 mg PO BID #20 tab 11/17/17 Docusate Sodium [Colace] 100 mg PO BID #20 cap 11/17/17 Hydrocodone/Acetaminophen [[place] 5-325 Tablet] 1 ea PO Q4H PRN PRN 7 Days #14 tab 11/17/17 The following prescriptions were given: Hydrocodone/Acetaminophen [[place] 5-325 Tablet] 1 ea PO Q4H PRN PRN 7 Days #14 tab PRN Reason: Pain Ciprofloxacin [Cipro] 500 mg PO BID #20 tab Docusate Sodium [Colace] 100 mg PO BID #20 cap Primary Care Physician: Huber Dejesus [Primary Care Provider] - Test Results: Test results from this visit will be discussed in further detail at your follow-up appointment, if applicable. Please Follow Up With: Dave Almanza MD When: please call to make an appointment- 10 days 11/18/17 0728 <Electronically signed by Dave Almanza MD> Date Dave Almanza MD CC: Huber Dejesus MD CBC-COMPLETE BLOOD CNT Collected: 11/18/2017 Status: F Source: MANDI NO DIFF 6:14 AM [facility] REPOSITORY TYPE CODE TESTS RESULT OUT OF RANGE REFERENCE UNITS LAB L100.1000 4.4-11.0 K/mm3 High WBC 11.3 LAB L100.1200 4.6-6.2 M/mm3 Low RBC 4.04 LAB L100.1300 13.0-16.5 g/dl Low HGB 12.5 LAB L100.1400 40-54 % Low HCT 38.0 LAB L100.1500 80-94 fL High MCV 94.1 LAB L100.1600 27.0-32.0 pg Normal MCH 30.9 LAB L100.1700 32-36 g/gl Normal MCHC 32.9 LAB L100.1810 11.6-14.6 % Normal RDW CV 13.9 LAB L100.1820 35.1-43.9 fl High RDW SD 47.7 LAB L100.1900 150-450 K/mm3 Normal PLT 190 LAB L100.2000 6.2-12.0 fl Normal MPV 10.2 Performed By: #### L100.0500 #### [facility] [address] [place], [address] BASIC METABOLIC Collected: 11/18/2017 Status: F Source: MANDI PROFILE (BMP) 6:14 AM [facility] REPOSITORY TYPE CODE TESTS RESULT OUT OF RANGE REFERENCE UNITS LAB L501.0100 74-106 mg/dL High GLU 120 Result Comment: Fasting Glucose result from 100 to 125 mg/dL suggests IMPAIRED HOMEOSTASIS per A.D.A. criteria. Please note revised GLUCOSE reference range effective 2017. LAB L501.1000 7-18 mg/dL Normal BUN 13 LAB L501.1100 0.70-1.30 mg/dL Normal CREAT,SERUM 0.84 Result Comment: The validity of the calculated GFR AND GFRAA in patients over 70 years has not been determined. Clinical correlation is essential. LAB L501.1110 >60 mL/min Normal EST GFR 99 Result Comment: Non- GFR Calc LAB L501.1115 >60 mL/min Normal EST GFR - AA 120 Result Comment: GFR Calc LAB L501.1255 ml/min Normal Estimated CRCL 85.95 LAB L501.1300 10-20 RATIO Normal BUN/CRE 15.6 LAB L501.2200 8.5-10 mg/dL Low .1 CA 8.0 LAB L501.5300 136-14 mmol/L Normal 5 NA 142 LAB L501.5600 3.5-5. mmol/L Normal 1 K 3.7 LAB L501.5900 98-107 mmol/L Normal CL 106 LAB L501.6100 21.0-3 mmol/L Normal 2.0 CO2 28.0 LAB L501.6200 5-15 Normal GAP 8 Performed By: #### L500.2500 #### [facility] [address] [place], [address] CBC-COMPLETE BLOOD CNT Collected: 11/17/2017 Status: F Source: SEVEN MILE NO DIFF 11:16 AM [facility] REPOSITORY Order Comment: Comments: To be done in PACU TYPE CODE TESTS RESULT OUT OF RANGE REFERENCE UNITS LAB L100.1000 4.4-11.0 K/mm3 High WBC 11.3 LAB L100.1200 4.6-6.2 M/mm3 Low RBC 4.26 LAB L100.1300 13.0-16.5 g/dl Normal HGB 13.6 LAB L100.1400 40-54 % Normal HCT 40.1 LAB L100.1500 80-94 fL High MCV 94.1 LAB L100.1600 27.0-32.0 pg Normal MCH 31.9 LAB L100.1700 32-36 g/gl Normal MCHC 33.9 LAB L100.1810 11.6-14.6 % Normal RDW CV 14.1 LAB L100.1820 35.1-43.9 fl High RDW SD 47.0 LAB L100.1900 150-450 K/mm3 Normal PLT 200 LAB L100.2000 6.2-12.0 fl Normal MPV 10.1 Performed By: #### L100.0500 #### [facility] [address] [place], [address] BASIC METABOLIC Collected: 11/17/2017 Status: F Source: MANDI PROFILE (BMP) 11:16 AM [facility] REPOSITORY Order Comment: Comments: To be done in PACU TYPE CODE TESTS RESULT OUT OF RANGE REFERENCE UNITS LAB L501.0100 74-106 mg/dL High GLU 149 Result Comment: Fasting Glucose result greater than or equal to 126 mg/dL suggests DIABETES MELLITUS per A.D.A. criteria. Please note revised GLUCOSE reference range effective 2017. LAB L501.1000 7-18 mg/dL Normal BUN 13 LAB L501.1100 0.70-1.30 mg/dL Normal CREAT,SERUM 0.91 Result Comment: The validity of the calculated GFR AND GFRAA in patients over 70 years has not been determined. Clinical correlation is essential. LAB L501.1110 >60 mL/min Normal EST GFR 90 Result Comment: Non- GFR Calc LAB L501.1115 >60 mL/min Normal EST GFR - AA 109 Result Comment: GFR Calc LAB L501.1255 ml/min Normal Estimated CRCL 79.30 LAB L501.1300 10-20 RATIO Normal BUN/CRE 14.3 LAB L501.2200 8.5-10 mg/dL Low .1 CA 8.1 LAB L501.5300 136-14 mmol/L Normal 5 NA 143 LAB L501.5600 3.5-5. mmol/L Normal 1 K 4.8 LAB L501.5900 98-107 mmol/L High CL 109 LAB L501.6100 21.0-3 mmol/L Normal 2.0 CO2 27.0 LAB L501.6200 5-15 Normal GAP 7 Performed By: #### L500.2500 #### [facility] [address] [place], [address] OPERATIVE REPORT Observed: 11/17/2017 Status: F Source: MANDI 11:01 AM [facility] REPOSITORY [facility] Medical Records Department [address] [place] [address] Operative Report 11/17/17 1053 MR#: [id number] Acct: [id number] Name: LETA PIMENTEL Rep #: [id number] : 1955 62 From: Dave Almanza MD PCP: Huber Dejesus MD Status: REG SDC Y Location: [place] [address] Problem List (1) Prostate cancer Status: Acute Report of Operation Date of Procedure: 11/17/17 Pre-Operative Diagnosis: Prostate cancer Post-Operative Diagnosis: Same Surgery/Procedure Performed:: Laparoscopic robotic assisted radical prostatectomy with left nerve sparing, bilateral pelvic lymph node dissection, suture suspension of the urethra, EMG monitoring of the pelvic nerves Description of Surgical Findings:: 62-year-old male prostate cancer is elected to undergo radical prostatectomy for curative intent he understands that there is a risk of permanent loss of erections and also risk of incontinence after the surgery and we talked about the healing process and what to expect after the surgery. 62-year-old male taken back to the operating room after smooth induction of general anesthesia he was placed supine on the table he was then placed in dorsal lithotomy position with the legs in stirrups approach for a radical prostatectomy, the abdomen was shaved prepped and draped in usual sterile fashion, infiltrated above the umbilicus with lidocaine, I then made an incision above the umbilicus, I then put the Veress needle into the peritoneal cavity and into all treated the peritoneal cavity with CO2 gas and created a pneumoperitoneum. We then docked our camera port right arm port and 2 left arm ports a cyst assistant sales manager suction port and the air seal port. I first started by identifying the anatomy he had a fairly skinny male severely easily to identify the anatomy to identify the right vas deferens traced this down below the bladder and dissected out the right vas deferens and then identified the right seminal vesicle we used minimal electrocautery as we dissected this out. I then dissected out the left vas deferens and left seminal vesicle again using very minimal electrocautery and only bipolar and dissecting this out I then created a space underneath the prostate towards the apex we then pulled out of the pelvis we dropped the bladder created the space of Retzius put the bladder on traction I then went to the right side and did the lymph node dissection on the right side cleared out the lymph node tissue between the external iliac vein lateral pelvic sidewall and obturator nerve these were identified clips were placed and electrocautery used to dissect the lymph node tissue there was no enlarged lymph nodes these were sent off appeared need to be negative. I then went to the left side again identified the left external iliac vein lateral pelvic sidewall obturator nerve dissected out the lymph node tissue in the space this was sent off as a specimen again appeared to be negative since there is no enlarged lymph nodes. Bladder was then placed on traction. I then went to the apex we incised the endopelvic fascia on both sides we cleaned the prostate off the levator muscles on both sides all the way up to the apex dissected the apex transected through the puboprostatic ligaments and support of the apical tissue of the prostate I then placed a stitch to the dorsal vein complex came back to the junction between the bladder and prostate and then dissected to the bladder and prostate using electrocautery down to the attachment of the bladder to the prostate and then dissected posteriorly until I got to the seminal vesicles and vas deferens we then placed lateral traction of the prostate in the right side came to the pedicles of the prostate in the right side and then identified the neurovascular bundle on the right side try to peel this off it is really stuck to the prostate this is the side with more cancer did not force it and only did a partial nerve sparing on that side as a came to the apex of the prostate in the right side also some rectal fibers were really stuck to the prostate he had to be carefully teased off the prostate bottom then went to the left side came to the PET the pedicle of the prostate the left side and then identified the neurovascular bundle decide the neurovascular bundle peeled off the prostate very nicely without any adherence all the way up to the apex we then transected through the dorsal vein complex I placed an extra stitch in the dorsal vein complex circumferentially dissected all the way around the urethra we know he had cancer in the apex of the prostate so very carefully identified the junction between the urethra and the apex of the prostate making sure that the leaving the muscle tissue behind her potential cancer Transected to the prostate and the urethra. And then pulled back the catheter and then try to transected the posterior aspect of the attachments of the prostate to the urethra prostate was then free put in Endo Catch bag I then inspected the rectum there was no obvious injury to the rectum we also filled the rectum with gas just to check it and there was no bubbles and no leakage. We then made sure there was hemostasis which there was and then we performed the suture suspension of the urethra. After this was done then we did check the pelvic nerves with the EMG monitoring with post put the trocar through the midline abdomen we introduced the one electrode down into the pelvis were put into the levator muscles we then checked action potential on the right side it was reported to have some minimal action potential seen we traced along the lateral pelvic wall to make sure that this was all intact which was then we went to the left side checked the action potential in the left side and there was action potential we then went to the sphincter put 1 of the EMG monitors through the sphincter and we able to see the sphincter coapted and there was good response of the sphincter. So after checking the nerves with EMG monitoring we then pulled out those electrodes I then completed these suspension of the urethra with stitches between the bladder neck and the urethra over a catheter and then once this was completed then we flushed the catheter was no leakage from the anastomosis we then extracted the prostate to the up supra umbilical port closed with the ports with stitches closer Kalia closed our 1012 trocar with a Kalia Cook stitch and then closed our umbilical port extraction site with interrupted 0 Vicryl subcuticular stitches were placed bandages were placed patient was extubated and taken back to the PACU in good condition. Type of Anesthesia:: General Drains: May - Admit VTE Documentation VTE Present on Admission: No VTE Mechan Device Prophylaxis: SCD's 11/17/17 1101 <Electronically signed by Dave Almanza MD> Date Dave Almanza MD CC: Huber Dejesus MD; Dave Almanza MD Signed PROSTATE RADICAL Observed: 11/17/2017 Status: F Source: M[facility]I RESECTION 12:00 AM [facility] REPOSITORY Patient: LETA PIMENTEL : 1955 (62/M) Acct Num: [id number] Phys: Archie DEGROOT,Dave Lemons Unit Num: [id number] Loc: [facility] Specimen: [id number] Received: 11/17/17953 Spec Type: PROSTATE TISSUES TISSUES: A. Prostate, NOS B. Prostate, NOS C. Lymph node of pelvis, NOS D. Lymph node of pelvis, NOS E. Adipose tissue F. Prostate, NOS COMMENT PROSTATE CANCER (RADICAL) SUMMARY: Procedure radical prostatectomy Prostate size 4.5 x 4 x 3.8 cm Prostate weight 44 gm Lymph node sampling pelvic lymph node dissection (specimens C AND D) Histologic type - adenocarcinoma Histologic grade (Osmond Pattern): Primary pattern - 4 Secondary pattern - 3 Total Osmond score - 7 Tumor Quantitation: Tumor size 3.8 x 2.7 x 1.5 cm Extraprostatic extension present, focal (right posterior lateral region) Seminal vesicle invasion not identified Margins uninvolved by invasive carcinoma. Treatment effect on carcinoma not identified Lymph-Vascular invasion - not identified Perineural invasion present, extensive Regional lymph nodes see specimens C and D. Number examined - 6 Number involved - 0 Distant metastasis - unknown Additional pathologic findings - Focal high-grade prostatic intraepithelial neoplasia and mild chronic inflammation. PATHOLOGIC STAGE: pT3a N0 Mx Adenocarcinoma is present in the shaved distal ureteral margin section. The above summary is in compliance with College [employer] (CAP) Cancer Protocols Checklist and [place] Joint Committee on Cancer (AJCC), Staging Manual, 8th Ed. Reference is made to the patient s previous prostate needle core biopsies (S15- 7050) in which adenocarcinoma, Osmond grade 7 (3+4) was identified with perineural invasion. Case has been reviewed in consultation with Dr. Boswell who concurs with the above diagnosis. IDC:SJ FROZEN SECTION DIAGNOSIS A. Right anterior prostate margin, biopsy: Negative for carcinoma. AM: 11/17/17 GROSS DESCRIPTION A - Received fresh for frozen section consultation labeled with the patient's name is a specimen designated right anterior margin. The specimen consists of an irregular fragment of pink-alford soft tissue measuring 0.8 x 0.4 x 0.2 cm. The specimen is submitted in its entirety for frozen section consultation. / AM: 11/17/17 B - Received in fixative is one container labeled with the patient's name and designated prostate. The specimen consists of a prostate gland with attached right and left seminal vesicles weighing 44 gm. The prostate measures 4.5 cm transversely, 4 cm craniocaudally and 3.8 cm anterior-posteriorly. The apex of the gland is conical in shape. No mass lesions are grossly palpated. The specimen is differentially inked as follows: anterior red, right half blue, left half green and entire posterior surface black. The specimen is left for additional overnight fixation. / AM: 11/17/17 The specimen is serially sectioned from apex to base at approximately 3 to 4 mm intervals. Serial sections do not reveal a mass lesion. No distinct rubbery nodularity is identified. Strip Cleaner sections are submitted in 19 cassettes as follows: 1 distal urethral shaved margin, 2 proximal urethral shaved margin, 3 seminal vesicles, 4 most basal section of prostate, 5-7 apex, 8- 13 mid portion of prostate, 14-19 basal portion of prostate. / AM: C - Received in fixative is one container labeled with the patient's name and designated right pelvic lymph node. The specimen consists of an irregular fragment of light alford soft tissue that measures 2.5 x 2 x 0.2 cm. The specimen is submitted in its entirety in one cassette. / AM: 11/17/17 D - Received in fixative is one container labeled with the patient's name and designated left pelvic lymph node. The specimen consists of two irregular fragments of light alford soft tissue that measures 2.5 x 2 x 0.5 cm. The specimen is totally submitted in two cassettes. / AM: 11/17/17 E - Received in fixative is one container labeled with the patient's name and designated fat over prostate. The specimen consists of two irregular fragments of yellow fatty tissue that in aggregate measure 3.5 x 3 x 0.2 cm. The specimen is totally submitted in two cassettes. / AM: 11/17/17 F - Received in fixative is one container labeled with the patient's name and designated right inferior margin. The specimen consists of an irregular fragment of alford tissue measuring 0.5 x 0.2 x 0.1 cm. The specimen is totally submitted in one cassette. / AM: 11/17/17 TC:0 CPT: 39950 x3, 54662 x2, 93964 HEADER OPERATION: Laparoscopic robotic radical prostatectomy PRE-OP DIAGNOSIS: Prostate cancer, elevated PSA TISSUE SUBMITTED: A Anterior margin prostate sent as FS at 0950 to lab, B Prostate, C Right pelvic lymph node, D Left pelvic lymph node, E Fat over prostate, F Right inferior margin MICROSCOPIC DESCRIPTION Slides are reviewed. MICROSCOPIC DIAGNOSIS A. Right anterior prostate margin, biopsy: Negative for carcinoma. B. Prostate, radical prostatectomy: Adenocarcinoma. See cancer checklist below. C. Right pelvic lymph nodes, regional lymphadenectomy: Four out of four lymph nodes negative for carcinoma. D. Left pelvic lymph nodes, regional lymphadenectomy: Two out of two lymph nodes negative for carcinoma. E. Fat over prostate, biopsy: Adipose tissue. No evidence of malignancy. F. Right inferior margin, biopsy: Fragment of fibromuscular and fibrofatty tissue. No evidence of carcinoma. AM:rg 11/19/17 PSA RESULTS No results available. Signed Hang Ralph 11/19/17 <signature on file> Performed By: #### PPROST #### [facility] [address] [place] [address]. [place], [address] 12 LEAD ELECTROCARDIOGRAM Observed: 11/16/2017 Status: F Source: SEVEN MILE 1:29 PM [facility] REPOSITORY [facility] Cardiovascular Services [address] [place] [id number] 12 Lead EKG 11/11/17 1504 MR#: [id number] Acct: [id number] Name: LETA PIMENTEL Rep #: [id number] : 1955 62 From: Rigoberto Tyler MD Attending Dr: Archie DEGROOT,Dave Lemons Status: PRE LAC Ordering Dr: Dave Almanza MD Date: 11/11/17 Location: [facility] Sex: M C Admitted: Test Reason : PRE-OP Blood Pressure : / mmHG Vent. Rate : 055 BPM Atrial Rate : 055 BPM P-R Int : 160 ms QRS Dur : 094 ms QT Int : 406 ms P-R-T Axes : 076 -70 057 degrees QTc Int : 388 ms Sinus bradycardia Left axis deviation Incomplete right bundle branch block Cannot rule out Anteroseptal infarct , age undetermined Abnormal ECG Confirmed by RIGOBERTO TYLER ([id number]), food editor ULICES DUNLAP ([id number]) on 11/16/2017 1:29:09 PM Referred By: Dave Almanza Confirmed By:RIGOBERTO TYLER 11/16/17 1329 Date Rigoberto Tyler MD CC: Huber Dejesus MD; Dave Almanza MD Signed CHEST PA AND LATERAL Observed: 11/11/2017 Status: F Source: MANDI 3:08 PM [facility] REPOSITORY [facility] Imaging Services [address] [place] [address] Chest PA and Lateral MR#: [id number] Acct: [id number] Name: LETA PIMENTEL Rep #: [id number] : 1955 M 62 From: Jesus Nogurea MD PCP: Huber Dejesus MD Status: PRE [facility] Study: Chest PA and Lateral Date of Exam: 11/11/17 Exam# [id number] Ordering Dr: Dave Almanza MD STUDY: X-RAY CHEST REASON FOR EXAM: Male, 62 years old. Preop for prostatectomy, smoker. TECHNIQUE: PA and lateral views of the chest on 3 films. COMPARISON: 2 portable AP views of the chest April 19, 2016. FINDINGS: There is hyperinflation of the lungs consistent with chronic obstructive lung disease (COPD). Small calcified granuloma projects in the retrosternal airspace on the lateral view, but is not clearly localized on the frontal image. There is no demonstrated pleural abnormality. Normal size heart. Normal mediastinum and karen. Normal visualized pulmonary arteries. Normal visualized aortic arch and descending thoracic aorta. Normal visualized thoracic spine. Metal hardware of prior anterior fusion lower cervical spine again noted. Normal visualized ribs, clavicles, and shoulders. There is no demonstrated abnormality of the visualized soft tissue structures of the upper abdomen. RAD/Chest PA and Lateral IMPRESSION: Hyperexpanded, consistent with obstructive pulmonary disease. No acute infiltrate or CHF. Electronically Signed: Otf Noguera MD at 22:24 EDT , Service support , CC: Huber Dejesus MD; Dave Almanza MD Pulley Mortiser Operator: Signed CBC-COMPLETE BLOOD CNT Collected: 11/11/2017 Status: F Source: MANDI NO DIFF 2:40 PM [facility] REPOSITORY TYPE CODE TESTS RESULT OUT OF RANGE REFERENCE UNITS LAB L100.1000 4.4-11.0 K/mm3 Normal WBC 6.6 LAB L100.1200 4.6-6.2 M/mm3 Normal RBC 4.76 LAB L100.1300 13.0-16.5 g/dl Normal HGB 15.0 LAB L100.1400 40-54 % Normal HCT 44.8 LAB L100.1500 80-94 fL High MCV 94.1 LAB L100.1600 27.0-32.0 pg Normal MCH 31.5 LAB L100.1700 32-36 g/gl Normal MCHC 33.5 LAB L100.1810 11.6-14.6 % Normal RDW CV 14.2 LAB L100.1820 35.1-43.9 fl High RDW SD 48.7 LAB L100.1900 150-450 K/mm3 Normal PLT 229 LAB L100.2000 6.2-12.0 fl Normal MPV 10.2 Performed By: #### L100.0500 #### [facility] [address] [place], [address] COMPREHENSIVE METABOLIC Collected: 11/11/2017 Status: F Source: MANDI PROFIL 2:40 PM [facility] REPOSITORY TYPE CODE TESTS RESULT OUT OF RANGE REFERENCE UNITS LAB L501.0100 74-106 mg/dL Normal GLU 88 Result Comment: Please note revised GLUCOSE reference range effective 2017. LAB L501.1000 7-18 mg/dL Normal BUN 16 LAB L501.1100 0.70-1.30 mg/dL Normal CREAT,SERUM 0.86 Result Comment: The validity of the calculated GFR AND GFRAA in patients over 70 years has not been determined. Clinical correlation is essential. LAB L501.1110 >60 mL/min Normal EST GFR 96 Result Comment: Non- GFR Calc LAB L501.1115 >60 mL/min Normal EST GFR - AA 116 Result Comment: GFR Calc LAB L501.1300 10-20 RATIO Normal BUN/CRE 18.6 LAB L501.1500 6.4-8.2 g/dL T Normal PROT 6.8 LAB L501.1800 3.2-5.0 g/dL Normal ALB 3.8 LAB L501.1950 2.2-4.2 g/dL Normal GLOB 3.0 LAB L501.2000 0.9-2.4 RATIO Normal A/G 1.3 LAB L501.2200 8.5-10.1 mg/dL CA Normal 8.7 LAB L501.4100 15-37 U/L Low AST 13 LAB L501.4305 45-117 U/L Normal ALK P 78 LAB L501.4405 16-61 U/L Normal ALT 21 LAB L501.4600 0.20-1.00 mg/dL T Normal BILI 0.30 LAB L501.5300 136-145 mmol/L NA Normal 144 LAB L501.5600 3.5-5.1 mmol/L K Normal 4.3 LAB L501.5900 98-107 mmol/L High CL 108 LAB L501.6100 21.0-32.0 mmol/L Normal CO2 30.0 LAB L501.6200 5-15 Normal GAP 6 Performed By: #### L500.4050 #### [facility] [address] [facility] [address] [facility]. [place], [place], [id number] TYPE AND SCREEN Collected: 11/11/2017 Status: F Source: [place] 2:40 PM [facility] REPOSITORY Order Comment: Surgery Date: 11/17/17 Hx of Preganancy in last 3 Months No Ever experience any problems with transfusion(s)? N Hx of Transfusion in last 3 Months N CMV NEG?* N Give When? When Ready Irradiated? N Leukodepleted? Y Reason for Type AND Screen/Red Cells: SURGERY Surgery Date: 11/17/17 Time: 0000 SURGICAL PROCEDURE: 28688 Type of Surgery: RADICAL PROSTATECTOMY TYPE CODE TESTS RESULT OUT OF RANGE REFERENCE UNITS LAB B10.0800 A Normal BLOOD TYPE GEL POSITIVE LAB B100.4000 Normal Antibody NEGATIVE Screen Performed By: #### B101.7475 #### [facility] [address] [place], [place], [address] CREATININE FINGERSTICK Collected: 10/06/2017 Status: F Source: MANDI 2:34 PM [facility] REPOSITORY TYPE CODE TESTS RESULT OUT OF REFERENCE UNITS RANGE LAB L9100.0210 0.70-1.30 mg/dL Low CREATININE WB < 0.6 Performed By: #### L9100.0200 #### [facility] Point of Care [address] [place], [place] [id number] ABDOMEN/PELVIS WITH Observed: 10/06/2017 Status: F Source: MANDI CONTRAST 1:57 PM [facility] REPOSITORY [facility] Imaging Services [address] [place] [address] Abdomen/Pelvis WITH Contrast MR#: [id number] Acct: [id number] Name: LETA PIMENTEL Rep #: [id number] : 1955 M 62 From: Joe Whittington MD PCP: HUBER DEJESUS Status: REG CLI Study: Abdomen/Pelvis WITH Contrast Date of Exam: 10/06/17 Exam# [id number] Ordering Dr: Dave Almanza MD STUDY: CT ABDOMEN AND PELVIS WITH CONTRAST REASON FOR EXAM: Male, 62 years old. Prostate cancer RADIATION DOSAGE (If Supplied By Facility): CTDIvol = ( 9.00 ) mGy, DLP = ( 376.36 ) mGycm TECHNIQUE: Transaxial images were obtained from the dome of the diaphragm to the symphysis pubis without oral contrast. 100 ml of Isovue 300 contrast was administered. Sagittal and coronal images were reconstructed. Individualized dose optimization techniques were used for this CT. COMPARISON: None. FINDINGS: The visualized lung bases are clear. The visualized portions of the heart and pericardium are within normal limits. There are no calcified gallstones present. There are subcentimeter hypodensities in the liver which are too small to characterize. However, these likely represent cysts. There are no suspicious hepatic lesions. The spleen is normal in size. The pancreas is within normal limits. The adrenal glands are within normal limits. There are no renal or ureteral stones. There is no hydronephrosis. There are no focal renal lesions. Normal visualized stomach. There is no bowel obstruction or inflammation. The appendix is not visualized, but there are no findings to suggest acute appendicitis. The aorta is normal in caliber. There is no abdominal or pelvic free air, free fluid, fluid collection or lymphadenopathy. There are no destructive osseous lesions. CT/Abdomen/Pelvis WITH Contrast IMPRESSION: No evidence of metastatic disease in the abdomen or pelvis. Electronically Signed: Joe Whittington, at 17:12 EDT Tel , Service support , CC: HUBER DEJESUS; Dave Almanza MD Pulley Mortiser Operator: Signed BONE SCAN WHOLE Observed: 09/27/2017 Status: F Source: SEVEN MILE BODY 9:51 AM [facility] REPOSITORY [facility] Imaging Services [address] [place] [address] Bone Scan Whole Body MR#: [id number] Acct: [id number] Name: LETA PIMENTEL Rep #: [id number] : 1955 M 62 From: Colby Gregory DO PCP: HUBER DEJESUS Status: REG CLI Study: Bone Scan Whole Body Date of Exam: 09/27/17 Exam# [id number] Ordering Dr: Dave Almanza MD CLINICAL: 62-year-old male with recent diagnosis of prostate carcinoma. WHOLE BODY 99m Tc MDP RADIONUCLIDE BONE SCINTIGRAPHY COMPARISON: None available FINDINGS: Following the intravenous administration of 26.0 mCi of 99m Tc MDP, whole body bone images reveal: 1. Increased radiopharmaceutical concentration is identified in the acromioclavicular compartments of both shoulders, bilateral elbows, right-left knees. 2. The remaining skeletal structures are scintigraphically unremarkable with normal-appearing renal images and urinary bladder activity identified. NM/Bone Scan Whole Body IMPRESSION: 1. The increase in radiopharmaceutical concentration defined in the right-left shoulders, bilateral elbows, both knee articulations is most consistent with degenerative arthritis. 2. There is no definitive typical scintigraphic evidence of diffuse axial skeletal metastatic disease on the current examination. Electronically Signed: Colby Gregory DO at 11:17 EDT Tel , Service support , CC: HUBER DEJESUS; Dave Almanza MD Pulley Mortiser Operator: Signed PROSTATE BIOPSY Observed: 09/14/2017 Status: F Source: MANDI BILATERAL 11:00 AM [facility] REPOSITORY Patient: LETA PIMENTEL : 1955 (62/M) Acct Num: [id number] Phys: Archie DEGROOT,Dave Lemons Unit Num: [id number] Loc: LABSPEC Specimen: [id number] Received: 09/14/17 - 1451 Spec Type: PROST BX TISSUES TISSUES: A. PROSTATE RIGHT B. PROSTATE RIGHT C. PROSTATE RIGHT D. PROSTATE LEFT E. PROSTATE LEFT F. PROSTATE LEFT GROSS DESCRIPTION A - Received is one container designated prostate, right apex. The specimen consists of one elongated fragment of light alford-white soft tissue measuring 1 cm in length and 0.1 cm in diameter. The specimen is totally submitted in one cassette. B - Received is one container designated prostate, right mid. The specimen consists of one elongated fragment of light alford-white soft tissue measuring 2 cm in length and 0.1 cm in diameter. The specimen is totally submitted in one cassette. C - Received is one container designated prostate, right base. The specimen consists of two elongated fragments of light alford-white soft tissue each measuring 1.5 cm in length and 0.1 cm in diameter. The specimen is totally submitted in one cassette. D - Received is one container designated prostate, left apex. The specimen consists of one elongated fragment of light alford-white soft tissue measuring 2 cm in length and 0.1 cm in diameter. The specimen is totally submitted in one cassette. E - Received is one container designated prostate, left mid. The specimen consists of one elongated fragment of light alford-white soft tissue measuring 1.5 cm in length and 0.1 cm in diameter. The specimen is totally submitted in one cassette. F - Received is one container designated prostate, left base. The specimen consists of two elongated fragments of light alford-white soft tissue each measuring 1 cm in length and 0.1 cm in diameter. The specimen is totally submitted in one cassette. / AM: 09/16/17 TC:0 CPT: G0146 HEADER OPERATION: Prostate biopsy PRE-OP DIAGNOSIS: Elevated PSA TISSUE SUBMITTED: A - Right apex, B - Right mid, C - Right base, D - Left apex, E - Left mid, F - Left base MICROSCOPIC DESCRIPTION Slides are reviewed. MICROSCOPIC DIAGNOSIS A. Right prostate, apex, core biopsy: Adenocarcinoma: Osmond grade: 6 (3+3) Cores involved: 1 out of 1 Tissue involved: >95% Greatest tumor length: 8 mm B. Right prostate, mid, core biopsy: Adenocarcinoma: Osmond grade: 7 (3+4) Cores involved: 1 out of 1 Tissue involved: >95% Greatest tumor length: 14 mm C. Right prostate, base, core biopsy: Adenocarcinoma: Osmond grade: 7 (3+4) Cores involved: 2 out of 2 Tissue involved: 85% Greatest tumor length: 13 mm Perineural invasion: Present D. Left prostate, apex, core biopsy: Benign prostatic tissue. E. Left prostate, mid, core biopsy: Benign prostatic tissue. F. Left prostate, base, core biopsy: Adenocarcinoma: Osmond grade: 6 (3+3) Cores involved: 1 out of 1 Tissue involved: 2% Greatest tumor length: 1 mm AM: 09/17/17 Signed Hang Ralph 09/17/17 <signature on file> Performed By: #### PPROSBIL #### [facility] [address] [facility] [place], [address] DOWNTIME REPORT Observed: 09/01/2017 Status: F Source: SEVEN MILE 1:23 PM [facility] REPOSITORY [facility] Medical Records Department [address] [place] [address] Downtime Report MR#: [id number] Acct: [id number] Name: LETA PIMENTEL Rep #: [id number] : 1955 62 From: Franc Dunlap MD PCP: HUBER DEJESUS Status: [facility] This patient was seen during an EMR downtime August 16, 2017 - August 23, 2017. This patient may have a combination of paper and electronic documentation or all paper documentation. All documentation is viewable within the e-chart portion of [facility] for each patient visit. COLON BIOPSY (CHOOSE Observed: 08/17/2017 Status: F Source: MANDI SITE) 12:00 AM [facility] REPOSITORY Patient: LETA PIMENTEL : 1955 (62/M) Acct Num: [id number] Phys: Isidro DEGROOT,Bryant Unit Num: [id number] Loc: EN Specimen: [id number] Received: 08/17/17 1144 Spec Type: COLON BX TISSUES TISSUES: A. Transverse colon B. Sigmoid colon biopsy C. Sigmoid colon biopsy D. Sigmoid colon biopsy E. Rectum, NOS F. Gastric mucous membrane G. Gastric mucous membrane COMMENT F. The results of immunohistochemistry for Helicobacter pylori will be reported separately ([id number]). G. Alcian blue/PAS stain with matched control is used in the evaluation of the specimen. GROSS DESCRIPTION A - Received in fixative is one container labeled with the patient's name and designated transverse colon polyp. The specimen consists of two irregular fragments of light alford soft tissue that in aggregate measure 0.5 x 0.3 x 0.1 cm. The specimen is totally submitted in one cassette. B - Received in fixative is one container labeled with the patient's name and designated 20 cm sigmoid colon polyp. The specimen consists of three pieces of alford-pink polyp that in aggregate measure 1.5 x 1 x 0.3 cm. The specimen is totally submitted in one cassette. C - Received in fixative is one container labeled with the patient's name and designated 15 cm mid sigmoid colon polyp. The specimen consists of one alford- pink polyp measuring 0.5 x 0.5 x 0.3 cm. The specimen is totally submitted in one cassette. D - Received in fixative is one container labeled with the patient's name and designated 10 cm mid sigmoid colon polyp. The specimen consists of one alford- pink polyp measuring 1 x 0.6 x 0.5 cm. The specimen is bisected and totally submitted in one cassette. E - Received in fixative is one container labeled with the patient's name and designated proximal rectum polyp. The specimen consists of two pieces of alford- pink polyp that in aggregate measure 1.5 x 0.5 x 0.3 cm. The specimen is totally submitted in one cassette. F - Received in fixative is one container labeled with the patient's name and designated antrum biopsy. The specimen consists of two irregular fragments of light alford soft tissue that in aggregate measure 0.6 x 0.2 x 0.1 cm. The specimen is totally submitted in one cassette. G - Received in fixative is one container labeled with the patient's name and designated GE junction biopsy. The specimen consists of multiple irregular fragments of light alford soft tissue that in aggregate measure 0.7 x 0.5 x 0.1 cm. The specimen is totally submitted in one cassette. / SJ:norma 08/17/17 TC:1 CPT: 82827 x7, 594[address] HEADER OPERATION: Colonoscopy PRE-OP DIAGNOSIS: LLQ pain, family history colon CA TISSUE SUBMITTED: A Transverse colon polyp, B 20 cm sigmoid colon polyp, C 15 cm mid sigmoid colon polyp, D 10 cm mid sigmoid colon polyp, E Proximal rectum polyp, F Antrum biopsy for H. pylori and path, G GE junction biopsies MICROSCOPIC DESCRIPTION Slides are reviewed. F. The specimen shows fragments of gastric mucosa with chronic inflammatory cell infiltrates in the lamina propria consisting of lymphocytes and plasma cells, consistent with mild chronic gastritis. MICROSCOPIC DIAGNOSIS A. Transverse colon polyp: Fragments of tubular adenoma. B. 20 cm sigmoid colon polyp: Fragments of tubular adenoma. C. 15 cm mid sigmoid colon polyp: Hyperplastic polyp D. 10 cm mid sigmoid colon polyp: Tubular adenoma. E. Proximal rectum polyp: Fragments of tubular adenoma. F. Antrum, biopsy: Mild gastritis. See microscopic description and comment. G. GE junction, biopsy: Fragments of gastroesophageal mucosa with chronic inflammation. Intestinal metaplasia (goblet cell metaplasia) is not identified. See comment. WENDY:norma 08/20/17 Signed Grupo Boswell 08/20/17 <signature on file> Performed By: #### PCOLBX #### [facility] [address] [place], [address] IMMUNOHISTOCHEMISTRY Observed: 08/17/2017 Status: F Source: MANDI 12:00 AM [facility] REPOSITORY Patient: LETA PIMENTEL : 1955 (62/M) Acct Num: [id number] Phys: Isidro DEGROOT,Bryant Unit Num: [id number] Loc: EN Specimen: [id number] Received: 08/19/17 1207 Spec Type: IMMUNO TISSUES TISSUES: F. Stomach, NOS SPECIMEN INFORMATION: Tissue Source: F Antrum biopsy Clinical Info: LUQ pain Specimen Number: [id number] CPT code: 14671 METHODOLOGY: Deparaffinized sections of prefer/formalin-fixed tissue or PAP/DQ stained slides are incubated with monoclonal/polyclonal antibodies/oligonucleotide probes. Localization is made via biotin free immunoperoxidase method. Appropriate controls are performed and reacted as expected. Results on target cell population are indicated in the following table: RESULTS: ANTIBODY / CLONE RESULT Block F H Pylori (polyclonal) negative These tests were developed and their performance characteristics determined by [facility]. They may not have been cleared or approved by the U.S. Food and Drug Administration. The FDA has determined that such clearance or approval is not necessary. INTERPRETATION: F. Antrum, biopsy: Negative for Helicobacter pylori organisms. SJ:norma 08/19/17 PHYSICIAN AND INSTITUTION [place] [address] Signed [employer] Boswell 08/19/17 <signature on file> Performed By: #### PIMM #### [facility] [address] [place] [address]. [place], [place], [address] SURGERY VISIT REPORT Observed: 08/02/2017 Status: F Source: SEVEN MILE 11:36 AM [facility] REPOSITORY [facility] [address] [place] [address]. [address] [place] [id number] OFFICE VISIT Date of Service: 08/02/17 MR#: [id number] Acct: [id number] Name: LETA PIMENTEL Rep #: [id number] : 1955 Provider: Bryant Felix MD Age/Sex: 62/M Location: [facility] Status: Signed with Addenda ADDENDUM by Bryant Felix MD on 08/02/17 at 1136 Addendum entered and electronically signed by Bryant Felix MD 08/02/17 11:36: Intake Allergies No Known Allergies Allergy (Verified 08/02/17 11:11) Assessment AND Plan 1. LLQ pain R10.32 Plan - Bryant Felix MD 1. The patient is having left upper quadrant and left lower quadrant pain. He is also having change in his bowel habits. The patient has a family history of colon cancer in his father and has never had a colonoscopy. I recommend upper and lower endoscopy. 2. I explained endoscopy in detail to the patient. I explained the risks including but not limited to stroke or heart attack with anesthesia, perforation of the GI tract, bleeding, infection. I explained that any of these could necessitate further emergency surgery. The patient understands and all questions were answered sufficiently. The patient wishes to proceed with procedure. Orders Orders: 2. LUQ pain R10.12 Plan - Bryant Felix MD 1. Recommend EGD at the same time as the patient is having left upper quadrant pain. He is also having early satiety and weight loss. Bryant Felix MD Pager: [facility] [address] [place] [address], [address] [place] [address] Office: Orders Orders: Plan Detail Other Orders Orders: 08/02/17 1136 <Electronically signed by Bryant Felix MD> Date Bryant Felix MD cc: Bassam Bermudez MD * Signed Intake Vital Signs08/02/17 Height 6 ft 08/02/17 Weight: 146 lb 08/02/17 Body Mass Index (BMI) 19.8 Intake Visit Reasons: llq pain, black stool, needs cscope Road Crew Member Required: No Is patient in pain?: Yes (LLQ Abdomen ) Pain scale (1-10): 6 Allergies No Known Allergies Allergy (Verified 08/02/17 11:11) [facility] Medical History Left arm pain (Acute) Chest pain (Acute) Arm paresthesia, left (Acute) Stroke (Suspected) HTN (hypertension) (Suspected) RLS (restless legs syndrome) (Chronic) Surgical History S/P cervical spinal fusion (Acute) Family History Father Colon cancer Grandfather Colon cancer Social History Smoking Status: Current every day smoker alcohol intake: current substance use type: marijuana HPI HPI HPI: LETA PIMENTEL, is a 62 M who presents to the office today for left upper and lower quadrant pain. The patient reports that he has been having left lower quadrant pain and left upper quadrant pain since April and it is been getting worse. He says that his stools have changed as well. He has been alternating between constipation and diarrhea. The patient reports that he is feeling like someone stabbing him under his ribs on the left side. His father had colon cancer as well as his grandfather and uncle. He has never had a colonoscopy. ROS General General: Yes weight change (Weight loss) Endo Endocrine: No thyroid disease, diabetes mellitus, thyroid cancer, Hair loss, heat intolerance or cold intolerance Skin Skin: No rash Musc Musculoskeletal: Yes back problems; no arthritis Cardio Cardiovascular: No murmur, pacemaker, heart disease, atrial fibrillation, high blood pressure, heart attack, heart stent, palpitations, shortness of breat with exertion or chest pain Psych Psychiatric: No depression or anxiety Resp Respiratory: No shortness of breath, No sleep apnea, No cough, No COPD, No asthma, No emphysema, No wheezing Gastro Gastrointestinal: Yes abdominal pain, Yes nausea or vomiting, Yes diarrhea, Yes constipation, No blood in stool, No acid reflux, No hemorrhoids, No ulcers, No gallbladder problem, No black,tarry stools Chan Hematologic: No blood thinners, No blood disorders, No bleeding, No anemia, No blood clots Exam Const General: cooperative Orientation: alert, oriented x3 HENMT Ears: hearing grossly normal bilaterally Chest Chest palpation AND inspection: normal inspection of the chest Resp Effort AND Inspection: normal respiratory effort Auscultation: clear to auscultation bilaterally Cardio Rate: regular rate Rhythm: regular rhythm Heart Sounds: no murmurs GI Inspection: normal to inspection, non-distended Palpation: soft, tender Other: Left lower and upper quadrant tender to palpation. No guarding or rebound. Assessment AND Plan 1. LLQ pain R10.32 Plan 1. The patient is having left upper quadrant and left lower quadrant pain. He is also having change in his bowel habits. The patient has a family history of colon cancer in his father and has never had a colonoscopy. I recommend upper and lower endoscopy. 2. I explained endoscopy in detail to the patient. I explained the risks including but not limited to stroke or heart attack with anesthesia, perforation of the GI tract, bleeding, infection. I explained that any of these could necessitate further emergency surgery. The patient understands and all questions were answered sufficiently. The patient wishes to proceed with procedure. Orders Orders: 2. LUQ pain R10.12 Plan 1. Recommend EGD at the same time as the patient is having left upper quadrant pain. He is also having early satiety and weight loss. Bryant Felix MD Pager: [facility] [address] [place] [address] [address] [place] [address] Office: Orders Orders: Plan Detail Other Orders Orders: Coding Level of Care Code Off vis,new,level 3 Diagnoses LLQ pain R10.32 LUQ pain R10.12 08/02/17 1135 <Electronically signed by Bryant Felix MD> Date Bryant Felix MD Cosign Signature: Date (if applicable) CC: Bassam Bermudez MD EMERGENCY DEPARTMENT Observed: 06/10/2017 Status: F Source: SEVEN MILE SUMMARY 12:07 PM [facility] REPOSITORY [facility] Medical Records Department [address] [place] [id number] Emergency Department Summary 06/10/17 0958 MR#: [id number] Acct: [id number] Name: LETA PIMENTEL Rep #: [id number] : 1955 62 From: Jovany Ayala MD PCP: Bassam Bermudez MD Status: REG ER - ER Visit Summary Date of Service: 06/10/17 Chief Complaint: Left lower abdominal pain History of Present Illness: The patient is a 62 M who presents with left lower abdominal pain for approximately 2 weeks. He denies fever, chills or night sweats. He denies weight gain or weight loss. He denies nausea, vomiting diarrhea. He denies black or maroon stool. He denies dysuria, frequency, urgency or hematuria. He denies history of diverticulosis diverticulitis. Denies history of renal ureterolithiasis. There is no history of trauma. He denies prior problems with his abdomen. Upon further questioning it was determined that he is concerned because there is a family history of colon cancer. He denies any change in the color, consistency or caliber of his stool. He denies change in frequency. He does admit to smoking 1-1.5 packs of cigarettes a day. He does admit to drinking for alcoholic beverages a day and smoking 1-2 joints a day. He smokes marijuana because he does not want to take opiates for his back pain. Physical Examination: Blood pressure is elevated 146/75. He is not well groomed or capped. Head is atraumatic normocephalic. Pupils are equal round reactive. Extraocular muscles are intact. TMs are pearly white with landmarks noted. Nares patent with no drainage. Posterior pharynx without erythema or exudate. Uvula is midline. There is no dysphonia or dysphasia. Trachea is midline. There is no stridor with auscultation of the neck. Heart is regular without murmur, gallop or rub. S1 and S2 are normal. Lungs are clear to auscultation with good movement of air bilaterally. Abdomen is soft and nontender. There is no guarding or peritoneal findings. There is no palpable pulsatile mass. There is no abdominal bruit. Song sign is negative. Negative Rovsing sign. There is no evidence of inguinal or umbilical hernia. Neuro exam is nonfocal. Test Results: White count is normal with 41 segs no bands 45% lymphs. Electronic panel is unremarkable urine is normal Emergency Department Course and Treatment: To evaluate patient's left lower quadrant abdominal pain UA, CBC and BMP were obtained. Differential would include constipation, diverticular disease and urologic problems. Treatment Plan: Patient was informed the cause of his pain is unknown. With a normal white count predominately lymphocytes and a benign examination will discharge to follow-up with his PCP Dr. Bassam Bermudez. Disposition: Discharged to home with appropriate home-going instructions Impression: Left lower quadrant abdominal pain unknown etiology, initial encounter This note was generated with Otonomy dictation software. It may contain incorrect words, spelling, and punctuation that were not noted in review of the chart prior to signing ED Disposition - Plan for ED Patient: Disposition: Home or Assisted Living Chief Complaint: Abd Pain Instructions: ED Abdominal Pain Unkn Cause Male Referrals: Bassam Bermudez MD [Primary Care Provider] - 3-5 Days if not improving What to do if you have Problems For any increased pain, shortness of breath, bleeding, nausea or vomiting, chest pain, or any unexpected problems, contact your Primary Care Provider. Call [facility] ([phone]) or report to the closest Emergency Room. Call 911 if necessary. 06/10/17 1207 <Electronically signed by Jovany Ayala MD> Date Jovany Ayala MD Cosigner Signature (If Indicated): Date CC: Bassam Bermudez MD URINALYSIS, COMPLETE Collected: 06/10/2017 Status: F Source: MANDI 10:57 AM [facility] REPOSITORY Order Comment: Order Date: 06/10/17 Has pt arrived? Y How was Urine Obtained? CLEAN CATCH TYPE CODE TESTS RESULT OUT OF RANGE REFERENCE UNITS LAB L400.3000 Yellow COLOR Normal Yellow LAB L400.3050 Clear Normal CLARITY Clear LAB L400.3200 Normal mg/dl Normal GLUCOSE, UR Normal LAB L400.3300 Negative mg/dL Normal BILIRUBIN URINE Negative LAB L400.3400 Negative mg/dl Normal KETONE UR Negative LAB L400.3465 1.002-1.030 Normal SP.GR. DIPSTX 1.010 LAB L400.3550 5.0 - 8.0 pH UR Normal 7.0 LAB L400.3600 Negative mg/dl PROT Normal DIPSTX Negative LAB L400.3700 Normal mg/dl Normal UROBILI Normal LAB L400.3750 Negative Normal NITRITE UR Negative LAB L400.3780 Negative /ul Normal OCCULT BLOOD-UR Negative LAB L400.3800 Negative /ul LEUK Normal ESTERASE Negative LAB L400.4050 0-5 /hpf WBC 0 Normal SEEN LAB L400.4100 0-5 /hpf Normal RBC-UA 0-5 SEEN LAB L400.4150 0-5 /hpf SQUAM 0 Normal EPI SEEN LAB L400.4300 None Seen /hpf 0 Normal BACTERIA SEEN LAB L400.4350 <or=2+ /hpf 0 Normal MUCUS, URINE SEEN Performed By: #### L400.0001 #### [facility] [address] [place], [address] CBC W/DIFF, AUTOMATED Collected: 06/10/2017 Status: F Source: SEVEN MILE 9:55 AM [facility] REPOSITORY TYPE CODE TESTS RESULT OUT OF RANGE REFERENCE UNITS LAB L100.1000 4.4-11.0 K/mm3 Normal WBC 5.6 LAB L100.1200 4.6-6.2 M/mm3 Normal RBC 4.64 LAB L100.1300 13.0-16.5 g/dl Normal HGB 14.9 LAB L100.1400 40-54 % Normal HCT 43.1 LAB L100.1500 80-94 fL Normal MCV 92.9 LAB L100.1600 27.0-32.0 pg High MCH 32.1 LAB L100.1700 32-36 g/gl Normal MCHC 34.6 LAB L100.1810 11.6-14.6 % Normal RDW CV 13.9 LAB L100.1820 35.1-43.9 fl High RDW SD 46.2 LAB L100.1900 150-450 K/mm3 Normal PLT 227 LAB L100.2000 6.2-12.0 fl Normal MPV 10.2 LAB L100.2100 47-70 % Low NEUT% 41.0 LAB L100.2200 19-41 % High LY% 45.0 LAB L100.2300 0-10 % High MONO% 11.1 LAB L100.2400 0-5 % Normal EO% 2.0 LAB L100.2500 0-1 % Normal BASO% 0.7 LAB L100.2550 0.0-0.9 % Normal IM GRAN % 0.200 Result Comment: IG% - Immature Granulocytes (promyelocytes, myelocytes and metamyelocytes) > 1% indicates that a LEFT SHIFT is Present. LAB L100.2620 2.0-7.7 X10 3/uL Normal Absolute Neut 2.3 LAB L100.2720 0.83-4.51 X10 3/ul Normal Absolute Lymph 2.52 Performed By: #### L100.0100 #### [facility] [address] [place], [place], [id number] BASIC METABOLIC Collected: 06/10/2017 Status: F Source: MANDI PROFILE (BMP) 9:55 AM [facility] REPOSITORY TYPE CODE TESTS RESULT OUT OF RANGE REFERENCE UNITS LAB L501.0100 74-106 mg/dL Normal GLU 89 Result Comment: Please note revised GLUCOSE reference range effective 2017. LAB L501.1000 7-18 mg/dL High BUN 21 LAB L501.1100 0.70-1.30 mg/dL Normal CREAT,SERUM 0.82 Result Comment: The validity of the calculated GFR AND GFRAA in patients over 70 years has not been determined. Clinical correlation is essential. LAB L501.1110 >60 mL/min Normal EST GFR 102 Result Comment: Non- GFR Calc LAB L501.1115 >60 mL/min Normal EST GFR - AA 123 Result Comment: GFR Calc LAB L501.1255 ml/min Normal Estimated CRCL 90.59 LAB L501.1300 10-20 RATIO High BUN/CRE 25.7 LAB L501.2200 8.5-10 mg/dL Normal .1 CA 8.6 LAB L501.5300 136-14 mmol/L Normal 5 NA 140 LAB L501.5600 3.5-5. mmol/L Normal 1 K 4.2 LAB L501.5900 98-107 mmol/L Normal CL 106 LAB L501.6100 21.0-3 mmol/L Normal 2.0 CO2 27.0 LAB L501.6200 5-15 Normal GAP 7 Performed By: #### L500.2500 #### [facility] [address] [place], [address] ALLERGIES ALLERGIES DATE TYPE / CODE NAME / CODE REACTION SEVERITY SOURCE 11/11/2017 Drug No Known Unknown [facility] Allergy/416 Allergies/E15216 Hospital 469357(SNOM 0388(RXNORM) Repository ED CT) Drug/545800 No Known Worship 003(SNOMED Allergies [facility]) System Repository ENCOUNTERS ENCOUNTERS ADMIT/DISCHARGE ACCOUNT NUMBER ADMITTING ENCOUNTER LOCATION SOURCE CLASS 02/14/2018 [id number] Ambulatory [facility] ding:LAB.FUT Repository URE 11/17/2017/11/19/19 [id number] Ambulatory [address] ding:SDCRoom Repository : MS205 11/11/2017 [id number] Ambulatory BMSBuilding: [place] [facility] Repository 10/18/2017/10/19/19 [id number] [facility] [address] [facility] ing:AMUAshla nd 10/06/2017 [id number] Ambulatory [facility] ding:CT Repository 09/27/2017 [id number] Ambulatory [facility] ding:NM Repository 09/14/2017 [id number] Ambulatory [facility] ding:LABSPEC Repository 08/17/2017/08/18/19 [id number] Ambulatory [address] ding:EN Repository 08/17/2017 [id number] Ambulatory BMSBuilding: [place] BMS.CF.[facility] Repository 08/02/2017/08/03/19 [id number] Ambulatory BMSBuilding: [place] 18 BMS.[facility] Repository 06/10/2017/06/11/19 [id number] Emergency [address] ding:ED Repository PAYERS PAYERS ENCOUNTER GUARANTOR PAYER SUBSCRIBER SOURCE 02/14/2018 LETA T Primary LETA T Mandi [id number] [facility] Community 3175LOT MEDICARE PPOPolicy [id number] [place] [address], Number: Repository [place] [address]Gio: [id number] Date:3437-90-62LE BOX () [address] [place] [phone]: 02/14/2018 Secondary NOT GIVENUNK [place] Insurance:SELF PAY [facility] Number: Effective Repository Date:2018-02-10 11/17/2017 LETA T Primary LETA T Mandi [id number] CR Insurance:HUMANA GERICHDOB: Community [facility]5LOT MEDICARE PPOPolicy [id number], Number: Repository [place] [id number]: [id number] Date:3767-70-92IA BOX () [address] [place] [phone]: 11/17/2017 Secondary NOT GIVENUNK Mandi Insurance:SELF PAY [facility] Number: Effective Repository Date:2017-10-07 11/11/2017 LETA T Primary LETA T Mandi [id number] CR Insurance:HUMANA GERICHDOB: [place] [address]LOT MEDICARE PPOPolicy [id number], Number: Repository [place] [address]Ozl: [id number] Date:0274-57-37YW BOX () [address] [place] [address]TK: 11/11/2017 Secondary NOT GIVENUNK Mandi Insurance:SELF PAY [facility] Number: Effective Repository Date:2017-11-11 10/18/2017 LETA T Primary LETA T Worship GERICHDOB: Insurance:1500 GERICHDOB: [facility] Number: [id number] Repository [address] [place] [address], Date:2017-08-20[place], [place] [address]Krv: [id number] [place] [address]Iur: Name:CD:[id number] O () [address] [place] [address] ()Tel: [phone]: [phone] 10/06/2017 LETA T Primary LETA T Mandi [id number] CR Insurance:HUMANA GERICHDOB: Community [facility]5LOT MEDICARE [facility] [id number], Number: Repository [place] [address]Vlu: [id number] Date:8600-67-84SS BOX () [address] [place] [phone]: 10/06/2017 Secondary NOT GIVENUNK Mandi Insurance:SELF PAY [facility] Number: Effective Repository Date:2017-09-20 09/27/2017 LETA T Primary LETA T Mandi [id number] CR Insurance:HUMANA GERICHDOB: Community [facility]5LOT MEDICARE PPOPolicy [id number], Number: Repository [place] [id number]: [id number] Date:5335-63-74KU BOX () [address] [place] [phone]: 09/27/2017 Secondary NOT GIVENUNK Mandi Insurance:SELF PAY [facility] Number: Effective Repository Date:2017-09-20 09/14/2017 LETA T Primary LETA T Mandi [id number] CR Insurance:HUMANA GERICHDOB: Community [facility]5LOT MEDICARE PPOPolicy [id number], Number: Repository [place] [id number]: [id number] Date:4164-15-83NL BOX () [address] [place] [phone]: 09/14/2017 Secondary NOT GIVENUNK Mandi Insurance:SELF PAY [facility] Number: Effective Repository Date:2017-09-14 08/17/2017 LETA T Primary LETA T Mandi [id number] CR Insurance:HUMANA GERICHDOB: Community [facility]5LOT MEDICARE PPOPolicy [id number], Number: Repository [place] [address]Mwh: [id number] Date:2478-77-94SR BOX () [address] [place] [phone]: 08/17/2017 Secondary NOT GIVENUNK [place] Insurance:SELF PAY [facility] Number: Effective Repository Date:2017-08-02 08/17/2017 LETA T Primary LETA T [place] [id number] CR Insurance:HUMANA GERICHDOB: Community 3175LOT MEDICARE PPOPolicy [id number] [address], Number: Repository [place] [address]Jew: [id number] Date:7828-58-03NI BOX () [address] [place] [phone]: 08/17/2017 Secondary NOT GIVENUNK Mandi Insurance:SELF PAY [facility] Number: Effective Repository Date:2017-08-17 08/02/2017 LETA T Primary LETA T [place] [id number] Insurance:HUMANA GERICHDOB: Community [address] MEDICARE PPOPolicy [id number] [address]LOT Number: Repository CHRISTEN [id number] [place] [id number]: Date:2809-00-12UU [address] [place] [address] () [phone]: 08/02/2017 Secondary NOT GIVENUNK [place] Insurance:SELF PAY [facility] Number: Effective Repository Date:2017-08-02 06/10/2017 LETA T Primary LETA T Mandi [id number] Insurance:HUMANA GERICHDOB: Community [address] MEDICARE PPOPolicy [id number] [place] [address]Lot Number: Repository [id number] [id number]: Date:5042-52-33TM [address] [place] [address] (HP) [phone]: 06/10/2017 Secondary NOT GIVENUNK [place] Insurance:SELF PAY [facility] Number: Effective Repository Date:2017-06-10
== END ==
PROVIDERS: Family Provider Family Medicine; PCP Family Medicine; Referring Provider Urology; Visit Provider Urology
DX: C61 Malignant neoplasm of prostate (principal)
CPT/HCPCS: 36415; 84153

== ENCOUNTER → 2018-04-07 11:06 | Outpatient (CLI) | payer MEDICARE, SELFPAY ==
[2018-04-06 12:53] LABS: Absolute Lymphocyte Count 2.32 X10^3/ul (0.83-4.51); Absolute Neutrophil Count 3.2 X10^3/uL (2.0-7.7); Basophil# 0.06 X10^3/uL; Eosinophil# 0.08 X10^3/uL; Eosinophils% 1.3 % (0-5); Hematocrit 44.3 % (40-54); Hemoglobin 15.1 g/dl (13.0-16.5); Lymphocyte # 2.32 X10^3/ul (4.0); Mean Corp Hgb Conc 34.1 g/gl (32-36); Mean Corpuscular Hgb 31.5 pg (27.0-32.0); Mean Corpuscular Volume 92.3 fL (80-94); Monocyte# 0.62 X10^3/uL; Monocyte% 9.9 % (0-10); Neutrophil # 3.18 X10^3/uL (2.7-7.7); Neutrophil % 50.6 % (47-70); Platelet Count 246 K/mm3 (150-450); RBC Distribution Width CV 14.2 % (11.6-14.6); RBC Distribution Width SD 47.2 fl (35.1-43.9); White Blood Count 6.3 K/mm3 (4.4-11.0)
[2018-04-06 12:58] LABS: POSITIVE COUNT NO; POSITIVE DIFFERENTIAL NO; POSITIVE MORPHOLOGY NO
[2018-04-06 13:12] LABS: Creatinine, Serum 0.79 mg/dL (0.70-1.30); EST Glomerular Filtration Rate 106 mL/min (>60); Est Glom Filt Rate - Afr Amer 129 mL/min (>60); PSA,Total- Diagnostic 0.26 ng/mL (0.0-4.0)
--- NOTE | 2018-04-07 11:09 | CT_ITS ---
STUDY: CT ABDOMEN AND PELVIS WITH CONTRAST REASON FOR EXAM: Male, 62 years old. Radiation treatment planning examination for prostate cancer. Supine and prone examination was obtained. RADIATION DOSAGE (If Supplied By Facility): CTDIvol = ( 24.52 ) mGy, DLP = ( 934.88 ) mGycm TECHNIQUE: Transaxial images were obtained from the dome of the diaphragm to the symphysis pubis without oral contrast. 100ML ml of Isovue 300 contrast was administered. Individualized dose optimization techniques were used for this CT. COMPARISON: Comparison is made with prior study dated October 06, 2017. FINDINGS: The visualized lung bases are unremarkable. The visualized portions of the heart are within normal limits. There is a 7.3 mm cyst in the dome of the left lobe of the liver. A similar-appearing 1 cm cyst is seen in the left lobe as well. Tiny cysts are also seen within the right lobe. Normal gallbladder and extrahepatic biliary system. Normal spleen. Normal pancreas. Normal bilateral adrenal glands. Normal right kidney. Normal left kidney. Normal visualized stomach. Normal small intestine. There are multiple colonic diverticula consistent with diverticulosis. The appendix is visualized and appears normal. There is diffuse atherosclerotic calcification of the abdominal aorta, without a demonstrated aneurysm. Normal inferior vena cava. Normal retroperitoneum. Contracted. Urinary bladder. The patient is status post prostatectomy. Normal abdominal wall. There are mild degenerative changes of the visualized lumbar spine. CT/Abdomen/Pelvis WITH Contrast IMPRESSION: Status post prostatectomy. Stable small hepatic cysts. Electronically Signed: Alvarez Cloud MD at 11:03 EST , Service support ,
== END ==
PROVIDERS: Family Provider Family Medicine; PCP Family Medicine; Referring Provider Radiology Radiation Oncology; Visit Provider Radiology Radiation Oncology
DX: Z01.818 Encounter for other preprocedural examination (principal); C61 Malignant neoplasm of prostate
CPT/HCPCS: 36415; 74177; 82565; 84153; 85025; Q9965; Q9967

== ENCOUNTER → 2018-05-09 15:42 | Outpatient (CLI) | payer MEDICARE, SELFPAY ==
[2018-05-09 16:29] LABS: Absolute Lymphocyte Count 1.34 X10^3/ul (0.83-4.51); Absolute Neutrophil Count 2.6 X10^3/uL (2.0-7.7); Basophil# 0.02 X10^3/uL; Basophil% 0.4 % (0-1); Eosinophil# 0.08 X10^3/uL; Eosinophils% 1.7 % (0-5); Hematocrit 45.8 % (40-54); Hemoglobin 15.3 g/dl (13.0-16.5); Lymphocyte # 1.34 X10^3/ul (4.0); Lymphocyte % 27.9 % (19-41); Mean Corp Hgb Conc 33.4 g/gl (32-36); Mean Corpuscular Volume 92.7 fL (80-94); Mean Platelet Vol. 10.1 fl (6.2-12.0); Monocyte# 0.72 X10^3/uL; Neutrophil # 2.64 X10^3/uL (2.7-7.7); Neutrophil % 54.8 % (47-70); Platelet Count 196 K/mm3 (150-450); RBC Distribution Width CV 13.5 % (11.6-14.6); RBC Distribution Width SD 45.8 fl (35.1-43.9); Red Blood Count 4.94 M/mm3 (4.6-6.2); White Blood Count 4.8 K/mm3 (4.4-11.0)
[2018-05-09 16:41] LABS: POSITIVE COUNT NO; POSITIVE DIFFERENTIAL NO; POSITIVE MORPHOLOGY NO
== END ==
PROVIDERS: Family Provider Family Medicine; PCP Family Medicine; Referring Provider Radiology Radiation Oncology; Visit Provider Radiology Radiation Oncology
DX: C61 Malignant neoplasm of prostate (principal)
CPT/HCPCS: 36415; 85025

== ENCOUNTER → 2018-05-30 14:33 | Outpatient (CLI) | payer MEDICARE, SELFPAY ==
[2017-11-17 12:14] VITALS: BMI 19.1
[2018-05-30 15:47] LABS: Absolute Lymphocyte Count 1.03 X10^3/ul (0.83-4.51); Absolute Neutrophil Count 2.7 X10^3/uL (2.0-7.7); Basophil# 0.03 X10^3/uL; Basophil% 0.6 % (0-1); Eosinophil# 0.08 X10^3/uL; Eosinophils% 1.7 % (0-5); Hematocrit 43.1 % (40-54); Hemoglobin 14.6 g/dl (13.0-16.5); Lymphocyte # 1.03 X10^3/ul (4.0); Lymphocyte % 21.5 % (19-41); Mean Corp Hgb Conc 33.9 g/gl (32-36); Mean Corpuscular Hgb 31.6 pg (27.0-32.0); Mean Corpuscular Volume 93.3 fL (80-94); Mean Platelet Vol. 10.1 fl (6.2-12.0); Monocyte# 0.91 X10^3/uL; Neutrophil # 2.74 X10^3/uL (2.7-7.7); Platelet Count 281 K/mm3 (150-450); RBC Distribution Width SD 46.3 fl (35.1-43.9); Red Blood Count 4.62 M/mm3 (4.6-6.2); White Blood Count 4.8 K/mm3 (4.4-11.0)
[2018-05-30 15:52] LABS: POSITIVE COUNT NO; POSITIVE DIFFERENTIAL NO; POSITIVE MORPHOLOGY NO
== END ==
PROVIDERS: Family Provider Family Medicine; PCP Family Medicine; Referring Provider Radiology Radiation Oncology; Visit Provider Radiology Radiation Oncology
DX: C61 Malignant neoplasm of prostate (principal)
CPT/HCPCS: 36415; 85025

== ENCOUNTER → 2018-08-16 | Outpatient (CLI) | payer MEDICARE, SELFPAY ==
--- NOTE | 2018-08-16 14:41 | CT_ITS ---
STUDY: CT ABDOMEN AND PELVIS WITHOUT CONTRAST REASON FOR EXAM: Male, 63 years old. RADIATION DOSAGE (If Supplied By Facility): CTDIvol = ( 6.43 ) mGy, DLP = ( 349.73 ) mGycm TECHNIQUE: Transaxial images were obtained from the dome of the diaphragm to the symphysis pubis without oral contrast, and without intravenous contrast. Sagittal and coronal images were reconstructed. Individualized dose optimization techniques were used for this CT. COMPARISON: CT abdomen 04/07/2018 and 10/06/2017. FINDINGS: There are mild bibasilar pulmonary opacities... There is a stable small pericardial effusion. There are stable multiple hepatic cysts. Normal gallbladder and extrahepatic biliary system. Normal spleen. Normal pancreas. Normal bilateral adrenal glands. Normal right kidney. There is a stable 2 mm left renal calculus. Normal visualized stomach. Normal small intestine. There a few scattered colonic diverticula. No CT evidence for diverticulitis. The appendix is visualized and appears normal. There is stable mild aneurysmal dilatation of the infrarenal abdominal aorta maximum AP diameter of 1.9 cm cm with stable small right lateral bulge unchanged measuring 2.3 cm Normal inferior vena cava. Normal retroperitoneum. There is mild bladder wall thickening. The bladder is decompressed. There is prior prostatectomy with surgical clips and/or radiation implants in the lower pelvis.. There are stable focal subcutaneous fat collection noted lateral to the right iliac crest and anterior to the iliac crest which corresponds to the palpable finding. The maximum AP diameter is 1.2 cm. The fat is contiguous with other adjacent fat.. There is stable fat collection anterior to the left hip measuring 2 cm in greatest diameter.. There are a few scattered less than 1 cm sclerotic bone densities within the pelvis unchanged. CT/Abdomen/Pelvis without Cont IMPRESSION: stable focal subcutaneous fat collection noted lateral to the right iliac crest and anterior to the iliac crest which corresponds to the palpable finding. The maximum AP diameter is 1.2 cm. The fat is contiguous with other adjacent fat. This most likely is a lipoma versus asymmetric benign subcutaneous fat Stable focal fat collection anterior to the left hip likely lipoma Stable scattered small pelvic sclerotic bone lesions most likely bone islands due to no interval change Stable 2 mm left renal calculus Stable multiple hepatic cysts Mild bibasilar pulmonary opacities most likely hypoventilatory changes cannot exclude infiltrates Few scattered colonic diverticula no evidence for diverticulitis stable mild aneurysmal dilatation of the infrarenal abdominal aorta maximum AP diameter of 1.9 cm cm with stable small right lateral bulge unchanged measuring 2.3 cm Decompressed bladder, mild bladder wall thickening most likely due to incomplete distention cannot exclude cystitis Prior prostatectomy Electronically Signed: Gigi Rome, at 17:06 EDT Tel , Service support ,
[2018-08-16 16:13] LABS: Anion Gap 9 (5-15); BUN 19 mg/dL (7-18); BUN/Creat Ratio 27.1 RATIO (10-20); Calcium,Total 8.8 mg/dL (8.5-10.1); Chloride 105 mmol/L (98-107); EST Glomerular Filtration Rate 121 mL/min (>60); Est Glom Filt Rate - Afr Amer 147 mL/min (>60); Glucose 84 mg/dL (74-106); Potassium 3.6 mmol/L (3.5-5.1); Sodium Level 142 mmol/L (136-145)
[2018-08-17 09:24] LABS: PSA,Total- Diagnostic < 0.01 ng/mL (0.0-4.0)
== END | disposition home or self-care (01) ==
PROVIDERS: Family Provider Family Medicine; PCP Family Medicine; Referring Provider Urology; Visit Provider Urology
DX: C61 Malignant neoplasm of prostate (principal); R19.00 Intra-abdominal and pelvic swelling, mass and lump, unspecified site; R10.9 Unspecified abdominal pain
CPT/HCPCS: 36415; 74176; 80048; 84153; G0103

== ENCOUNTER → 2019-01-12 | Outpatient (CLI) | payer MEDICARE, SELFPAY ==
--- NOTE | 2019-01-12 08:17 | AAVD_ITS ---
Reason For Study: Abdominal pain Aorta Measurements Aorta Doppler Measurements Proximal aorta measures2.37 x 2.43cm. in cross- Peak systolic flow velocities within the proximal sectional axis. aorta measure 67.1 cm/sec. Proximal aorta measures2.3cm. in longitudinal axis. Celiac artery, origin, 281.9/78.6 cm/sec. Celiac artery, mid, 301.9/77.8 cm/sec. Hepatic artery, origin, 156.3/26.7 cm/sec. Splenic artery, origin, 248.3/60 cm/sec. Splenic artery, prox, 140.7/21.5 cm/sec. SMA, origin, 117.2/26.4 cm/sec. SMA, prox, 202.9/50 cm/sec. SMA, mid, 143.3/24.1 cm/sec. ERNESTO, origin, 202.9/16.3 cm/sec. ERNESTO, prox, 210.7/21.5 cm/sec. Procedure Exam performed in department. Interpretation Summary Normal aortic diameter 1.89 cm. Normal flow >70 % celiac origin and mid Normal flow hepatic artery origin Normal flow SMA artery origin Patent ERNESTO Ordering Physician: Ronny Dejesus Referring Physician: Ronny Dejesus Performed By: Mary Wei RVT
[2019-01-12 12:42] LABS: PSA,Total- Diagnostic < 0.01 ng/mL (0.0-4.0)
== END | disposition home or self-care (01) ==
PROVIDERS: Urology; Family Provider Family Medicine; PCP Family Medicine; Referring Provider Family Medicine; Visit Provider Family Medicine
DX: C61 Malignant neoplasm of prostate (principal); R10.84 Generalized abdominal pain
CPT/HCPCS: 36415; 84153; 93978

== ENCOUNTER 2019-02-03 09:17 | Day surgery (SDC) | payer MEDICARE, SELFPAY ==
[2019-01-23 08:58] VITALS: BMI 19.1
--- NOTE | 2019-01-30 08:21 | HP_ITS ---
Intake Vital Signs 01/23/19 Body Mass Index (BMI) 19.1 01/23/19 Height 6 ft 01/23/19 Weight: 145 lb 01/23/19 Body Mass Index (BMI) 19.6 01/23/19 Blood Pressure 160/90 H 01/23/19 Blood Pressure Location Rt brachial 01/23/19 Blood Pressure Position Sitting 01/23/19 Respiratory Rate 16 Intake Visit Reasons: Continuing Abd Pain/Poss EGD Chief Complaint: prostate cancer [employer] Required: No Is patient in pain?: Yes (llq abdomen) Allergies No Known Allergies Allergy (Verified 01/23/19 08:57) Medications atorvastatin 10 mg tablet 10 mg PO DAILY 01/23/19 [History Confirmed 01/23/19] PFSH Medical History (Updated 01/23/19 @ 08:56 by Katie Cobb) Left arm pain (Acute) Chest pain (Acute) Arm paresthesia, left (Acute) Stroke (Suspected) HTN (hypertension) (Suspected) RLS (restless legs syndrome) (Chronic) Prostate cancer (Acute) Surgical History S/P prostatectomy (Acute) S/P cervical spinal fusion (Acute) Family History Father Colon cancer Grandfather Colon cancer Social History (Updated 01/30/19 @ 08:21 by Bryant Felix MD) Smoking Status: Current every day smoker alcohol intake: current substance use type: marijuana HPI HPI HPI: LETA PIMENTEL, is a 63 M who presents to the office today for HPI HPI Surgical H&P: Yes HPI: LETA PIMENTEL, is a 63 M who presents to the office today for left lower quadrant pain. Patient reports that he has been having left lower quadrant pain for 2 years. He had EGD and colonoscopy in 2018. Since then he has had prostatectomy with radiation for prostate cancer. Patient also reports he has been seeing blood in his stool over the last 6 months. ROS General General: Yes weight change (Weight loss) Endo Endocrine: No thyroid disease, diabetes mellitus, thyroid cancer, Hair loss, heat intolerance or cold intolerance Skin Skin: No rash Musc Musculoskeletal: Yes back problems; no arthritis Cardio Cardiovascular: No murmur, pacemaker, heart disease, atrial fibrillation, high blood pressure, heart attack, heart stent, palpitations, shortness of breat with exertion or chest pain Psych Psychiatric: No depression or anxiety Resp Respiratory: No shortness of breath, No sleep apnea, No cough, No COPD, No asthma, No emphysema, No wheezing Gastro Gastrointestinal: Yes abdominal pain, Yes nausea or vomiting, Yes diarrhea, Yes constipation, No blood in stool, No acid reflux, No hemorrhoids, No ulcers, No gallbladder problem, No black,tarry stools Chan Hematologic: No blood thinners, No blood disorders, No bleeding, No anemia, No blood clots Exam Const General: cooperative Orientation: alert, oriented x3 Resp Effort & Inspection: normal respiratory effort Auscultation: clear to auscultation bilaterally Cardio Rate: regular rate Rhythm: regular rhythm Heart Sounds: no murmurs GI Inspection: non-distended Palpation: soft, nontender Assessment & Plan Problems 1. LLQ abdominal pain R10.32 2. Blood in stool K92.1 Plan The patient reports he is been having blood in his stool and increasing left lower quadrant pain over the last 2 years. He had a colonoscopy 18 months ago which showed 3 tubular adenomas. The patient also underwent radiation for prostate cancer. The patient may be having radiation proctitis. I did offer the patient repeat colonoscopy to ensure that there is no malignancy or ulceration of the colon causing his bleeding and pain. I explained endoscopy in detail to the patient. I explained the risks including but not limited to stroke or heart attack with anesthesia, perforation of the GI tract, bleeding, infection. I explained that any of these could necessitate further emergency surgery. The patient understands and all questions were answered sufficiently. The patient wishes to proceed with procedure. Bryant eFlix MD Pager: [facility] [address] [place] [address], [address] [place] [address] Office: Orders Orders: Colonoscopy Today K92.1, R10.32 Coding Level of Care Code Off vis,est,level 3 Diagnoses LLQ abdominal pain R10.32 Blood in stool K92.1 01/30/19 0821 <Electronically signed by Bryant macdonald MD> Date _ Bryant Felix MD I have re-examined the patient. There are no clinical changes since date of exam.
[2019-02-03 09:35] VITALS: BP 147/85; PULSE 71; RESP 16; TEMP 36.7; O2SAT 100; BMI 21.4
[2019-02-03] MEDS: Lactated Ringers 1,000 ML 100 ML IV (09:49)
--- NOTE | 2019-02-03 10:30 | COLBX_PTH ---
PATIENT: LETA PIMENTEL LOC: EN U#:[id number] AGE/SX: 63/M ROOM: RE02/03/[address]: Dr. Bryant Felix MD : [id number] BED: DIS: 02/03/2019 SPEC #: [id number] RECD: 02/03/19 12:50 STATUS: TY CHARLES #: [id number] YAZMIN: 02/03/19 10:[address]: Bryant Felix DEPT: SURGICAL PATHOLOGY RECD BY: Holden King ENTERED: 02/03/19 13:26 SP TYPE: COLON BX OTHR DR: Dr. Ronny Dejesus MD Tissues: COLON BIOPSY Procedures: Surgery Specimen Level IV HEADER OPERATION: Colonoscopy (MAC) PRE-OP DIAGNOSIS: Abdominal pain TISSUE SUBMITTED: Random colon biopsies MICROSCOPIC DIAGNOSIS Colon, random biopsy: Fragments of colonic mucosa, no pathologic diagnosis. SJ:norma 02/06/19 MICROSCOPIC DESCRIPTION Slides are reviewed. GROSS DESCRIPTION Received in fixative is one container labeled with the patient's name and designated random colon biopsy. The specimen consists of multiple irregular fragments of light alford soft tissue that in aggregate measure 1 x 1 x 0.1 cm. The specimen is totally submitted in one cassette. / SJ:norma 02/03/19 TC:4 CPT: 04723
--- NOTE | 2019-02-03 11:05 | OP.COLON_ITS ---
Patient Name: Gigi Coronado Procedure Date: 02/03/2019 10:46 AM Date of : 1955 Age: 63 Procedure: Colonoscopy Indications: Abdominal pain in the left lower quadrant, Chronic diarrhea Providers: Bryant Felix MD Referring MD: Ronny Dejesus Medicines: Monitored Anesthesia Care Patient Profile: This is a 63 year old male. Refer to note in patient chart for documentation of history and physical. Last Colonoscopy: within the past year. Complications: No immediate complications. Estimated blood loss: Minimal. Procedure: Pre-Anesthesia Assessment: - Prior to the procedure, a History and Physical was performed, and patient medications and allergies were reviewed. The patient's tolerance of previous anesthesia was also reviewed. The risks and benefits of the procedure and the sedation options and risks were discussed with the patient. All questions were answered, and informed consent was obtained. Prior Anticoagulants: The patient has taken no previous anticoagulant or antiplatelet agents. After reviewing the risks and benefits, the patient was deemed in satisfactory condition to undergo the procedure. After I obtained informed consent, the scope was passed under direct vision. Throughout the procedure, the patient's blood pressure, pulse, and oxygen saturations were monitored continuously. The adult colonoscope was introduced through the anus and advanced to the cecum, identified by appendiceal orifice and ileocecal valve. The colonoscopy was performed without difficulty. The patient tolerated the procedure well. The quality of the bowel preparation was good. Scope In: 10:54:09 AM Scope Withdrawal Time 0 hours 6 minutes 3 seconds Scope Out: 11:02:54 AM Total Procedure Duration Time 0 hours 8 minutes 45 seconds Findings: The entire examined colon appeared normal on direct and retroflexion views. Biopsies for histology were taken with a cold forceps from the entire colon for evaluation of microscopic colitis. Impression: - The entire examined colon is normal on direct and retroflexion views. - Biopsies were taken with a cold forceps from the entire colon for evaluation of microscopic colitis. Recommendation: - Discharge patient to home. - Resume previous diet. - Continue present medications. - Await pathology results. - Repeat colonoscopy for surveillance based on pathology results. Procedure Code(s): --- Professional --- 24636, Colonoscopy, flexible; with biopsy, single or multiple Diagnosis Code(s): --- Professional --- R10.32, Left lower quadrant pain K52.9, Noninfective gastroenteritis and colitis, unspecified CPT copyright 2017 [employer]. All rights reserved. The codes documented in this report are preliminary and upon tool and die machinist review may be revised to meet current compliance requirements. Bryant Felix MD 02/03/2019 11:04:58 AM This report has been signed electronically. Number of Addenda: 0 Note Initiated On: 02/03/2019 10:46 AM
[2019-02-03 11:09] VITALS: BP 105/67; BP 147/85; PULSE 71; RESP 16; TEMP 36.1; O2SAT 97
[2019-02-03 11:13] VITALS: BP 112/76; BP 147/85; PULSE 69; RESP 16; O2SAT 100
[2019-02-03 11:17] VITALS: BP 112/72; BP 147/85; PULSE 69; RESP 16; O2SAT 100
[2019-02-03 11:23] VITALS: BP 113/69; BP 147/85; PULSE 61; RESP 16; TEMP 35.9; O2SAT 100
[2019-02-03 11:41] VITALS: BP 147/85
== END 2019-02-03 11:42 | disposition home or self-care (01) ==
LOC: EN 09:17 → AC 09:18
PROVIDERS: Family Provider Family Medicine; PCP Family Medicine; Referring Provider Family Medicine; Visit Provider Surgery
PROC: 0DJD8ZZ Inspection of Lower Intestinal Tract, Via Natural or Artificial Opening Endoscopic (ICD-10-PCS; CPT 45378; principal; 2019-02-03 10:25)
DX: K52.9 Noninfective gastroenteritis and colitis, unspecified (principal); R10.32 Left lower quadrant pain; F17.200 Nicotine dependence, unspecified, uncomplicated; F12.90 Cannabis use, unspecified, uncomplicated; Z85.46 Personal history of malignant neoplasm of prostate
CPT/HCPCS: 45380; 88305; J7120

== ENCOUNTER → 2019-03-24 17:10 | Outpatient (CLI) | payer MEDICARE, SELFPAY ==
--- NOTE | 2019-03-24 17:13 | CT_ITS ---
STUDY: LOW DOSE CT LUNG CANCER SCREENING REASON FOR EXAM: Male, 63 years old. TOBACCO ABUSE. CURRENT SMOKER 1-2 PACKS PER DAY. H/O MITRAL VALVE PROLAPSE. NO COMPLAINTS. RADIATION DOSAGE (If Supplied By Facility): CTDIvol = ( 2.01 ) mGy, DLP = ( 92.33 ) mGycm TECHNIQUE: No contrast was administered. Low dose technique was utilized (average mAS-38 and kVp 120). 1.25 mm axial source images with a slice interval of 1.25-mm were reconstructed in lung windows. 2.5 mm axial source images with a slice interval of 2.5-mm were reconstructed in lung windows. 5.0 mm axial source images with a slice interval of 5.0-mm were reconstructed in soft tissue windows. Nodule measured using lung windows on PACS and/or independent workstation with automated measurement of minimum and maximum diameter. Nodule measurement reported as average diameter rounded to the nearest whole number. Growth is defined as an increase ins size of greater than 1.5 mm. COMPARISON: None. NODULES: No suspicious nodule is seen. Findings suggest mild scarring in the left lung apex as well as the medial aspect of the right middle lobe with focal bronchiectasis. Emphysema: Mild degree of emphysematous changes. Endobronchial lesion: None. Aorta: Atherosclerotic plaque calcification. Coronary arteries: Coronary artery calcification. Mediastinal nodes: Small mediastinal lymph nodes. Other chest and abdominal findings: Prior fusion of the lower cervical spine. CT/Low Dose CT Lung Screening IMPRESSION: Lung-RADS category 2 - Continue annual screening with LDCT in 12 months. IMPORTANT NOTES FOR USE: ACR Lung-RADS Version 1.0 Assessment Categories Release Date: July 10, 2013 Category: Coded 0-4 bases on nodule(s) with highest degree of suspicion. Negative screen is defined as categories 1 and 2; a positive screen is defined as categories 3 and 4. Category 3 and 4A nodules that are unchanged on interval CT should be coded as category 2, and individuals returned to screening in 12 months. Category 4X: Category 3 or 4 nodules with additional imaging findings that increase the suspicion of lung cancer, such as spiculation, GGN that doubles in size in 1 year, enlarged lymph notes, etc. Category Modifiers: S (significant finding unrelated to lung cancer) and C (prior history of treated lung cancer) may be added to the 0-4 Lung-RADS Electronically Signed: Alvarez Cloud, at 15:21 EST , Service support ,
== END ==
PROVIDERS: Family Provider Family Medicine; PCP Family Medicine; Referring Provider Radiology Radiation Oncology; Visit Provider Radiology Radiation Oncology
DX: Z87.891 Personal history of nicotine dependence (principal); Z12.2 Encounter for screening for malignant neoplasm of respiratory organs
CPT/HCPCS: G0297

== ENCOUNTER → 2019-04-06 08:33 | Outpatient (CLI) | payer MEDICARE, SELFPAY ==
--- NOTE | 2019-04-06 08:45 | RAD_ITS ---
PROCEDURE: SMALL BOWEL SERIES DATE OF EXAMINATION: April 06, 2019. INDICATION: Male, 63 years old. Two-year history of left lower quadrant pain and dark blood in the stool. PHYSICIAN: Alvarez Cloud M.D. FLUOROSCOPY TIME (if supplied): (0:34) minutes/seconds. 5 images were obtained. TECHNIQUE: Radiographic and fluoroscopic images were taken of the small intestine following the ingestion of barium. COMPARISON: None. FINDINGS: A preliminary supine KUB was obtained. There is an unremarkable bowel gas pattern. Fecal material is present throughout the colon. The lung bases are unremarkable. The osseous structures are normal. The patient orally ingested approximately 12 ounces of thin barium Normal visualized fundus, body, and antrum of the stomach. Normal duodenal bulb, C-loop, and proximal jejunum. Normal visualized mucosal folds of the jejunum and ileum. There are no demonstrated dilatations, strictures, or masses of the small intestine. There is no mass displacement of the loops of small intestine. There is a normal motor pattern with barium reaching the colon within approximately 30 minutes. Spot films under fluoroscopic observation demonstrated a normal terminal ileum and ileocecal valve. RAD/Small Bowel Series Only IMPRESSION: Normal small bowel series. Electronically Signed: Alvarez Cloud, at 14:14 EST , Service support ,
== END ==
PROVIDERS: Family Provider Family Medicine; PCP Family Medicine; Referring Provider Internal Medicine Gastroenterology; Visit Provider Internal Medicine Gastroenterology
DX: R10.32 Left lower quadrant pain (principal)
CPT/HCPCS: 74250

== ENCOUNTER → 2019-04-25 | Outpatient (CLI) | payer MEDICARE, SELFPAY ==
--- NOTE | 2019-04-25 07:49 | CT_ITS ---
STUDY: CTA OF THE ABDOMINAL AORTA REASON FOR EXAM: Male, 63 years old. Chronic abdominal pain. Left lower quadrant pain. Attention celiac axis and superior mesenteric artery. History of prostate cancer. TECHNIQUE: Axial CT angiography multi-detector data acquisition was obtained of the abdominal aorta following intravenous administration of 100ML ISOVUE 300. Axial images and MIP images were reconstructed from the axial data set. Post-processing of the angiographic images was performed, with multiplanar reformation and 3D reconstruction. Individualized dose optimization techniques were used for this CT. TECHNICAL QUALITY: Good COMPARISON: CT abdomen and pelvis August 16, 2018. Ultrasound abdominal aorta January 12, 2019. Descriptors of Narrowing: None (0%) Mild (< 50%) Moderate (50-70%) Severe (70-90%) Subtotal/Total Occlusion (90-100%) Non-Evaluable (technically non-diagnostic FINDINGS: Abdominal aorta: No demonstrated narrowing. There is diffuse atherosclerotic calcification of the abdominal aorta. No aneurysmal dilatation. Celiac and superior mesenteric arteries: Mild narrowing of the proximal 2 cm of the celiac axis without atherosclerotic calcification, sagittal in the series 360. Superior mesenteric artery is normal. Inferior mesenteric artery: No demonstrated narrowing. Right renal artery(arteries): No demonstrated narrowing. Left renal artery(arteries): No demonstrated narrowing. Atherosclerotic calcification of the common iliac arteries with mild ectasia. Stable hepatic cysts. Gallbladder, pancreas are normal. Scattered calcifications in the spleen. Mild enlargement of the adrenal glands suggestive of hyperplasia unchanged. Normal right kidney. Stable 2 mm nonobstructing inferior pole left renal calculus. Bowel grossly normal. Degenerative changes L5-S1.. CT/CTA Abdomen W/WO Contrast IMPRESSION: Mild narrowing of the proximal 2 cm of the celiac axis without atherosclerotic calcification. Diffuse atherosclerotic calcification of abdominal aorta without aneurysmal dilatation. Origins of the superior mesenteric artery, single bilateral renal arteries and inferior mesenteric artery are patent. Stable hepatic cysts. Old granulomatous disease. Adrenal hyperplasia unchanged. Small nonobstructing left renal calculus unchanged. Electronically Signed: Gabriele Mix MD at 5:37 EST , Service support ,
[2019-04-25 08:06] LABS: CREATININE FINGERSTICK 0.8 mg/dL (0.70-1.30); EGFR FINGERSTICK > 60.0000 mL/min (>60)
== END | disposition home or self-care (01) ==
LOC: CT 07:47
PROVIDERS: PCP Family Medicine; Referring Provider Internal Medicine Gastroenterology; Visit Provider Internal Medicine Gastroenterology
DX: R10.9 Unspecified abdominal pain (principal)
CPT/HCPCS: 74175; Q9967

== ENCOUNTER → 2019-07-13 | Outpatient (CLI) | payer MEDICARE, SELFPAY ==
[2019-07-13 09:51] LABS: PSA,Total- Diagnostic < 0.01 ng/mL (0.0-4.0)
== END | disposition home or self-care (01) ==
LOC: LAB 08:44
PROVIDERS: PCP Family Medicine; Referring Provider Urology; Visit Provider Urology
DX: C61 Malignant neoplasm of prostate (principal)
CPT/HCPCS: 36415; 84153

== ENCOUNTER → 2019-12-27 | Outpatient (CLI) | payer MEDICARE, SELFPAY ==
[2019-12-27 13:31] LABS: PSA,Total- Diagnostic < 0.01 ng/mL (0.0-4.0)
== END | disposition home or self-care (01) ==
PROVIDERS: PCP Family Medicine; Referring Provider Urology; Visit Provider Urology
DX: C61 Malignant neoplasm of prostate (principal)
CPT/HCPCS: 36415; 84153

== ENCOUNTER → 2020-07-04 10:41 | Outpatient (CLI) | payer MEDICARE, SELFPAY ==
[2020-07-04 11:27] LABS: PSA,Total- Diagnostic < 0.01 ng/mL (0.0-4.0)
== END ==
PROVIDERS: PCP Family Medicine; Referring Provider Urology; Visit Provider Urology
DX: C61 Malignant neoplasm of prostate (principal)
CPT/HCPCS: 36415; 84153

== ENCOUNTER → 2021-07-17 | Outpatient (CLI) | payer MEDICARE, SELFPAY ==
[2021-07-17 11:54] LABS: PSA,Total - Annual Screen < 0.01 ng/mL (0.00-4.00)
== END | disposition home or self-care (01) ==
PROVIDERS: PCP Family Medicine; Referring Provider Urology; Visit Provider Urology
DX: Z12.5 Encounter for screening for malignant neoplasm of prostate (principal)
CPT/HCPCS: 36415; 84153; G0103

== ENCOUNTER 2021-07-22 07:50 | Day surgery (SDC) | payer MEDICARE, SELFPAY ==
[2021-07-22] VITALS (7 sets, daily range): BP systolic 117–156; BP diastolic 77–93; PULSE 55–68; RESP 16; TEMP 36.1–36.4; O2SAT 98–100; BMI 20.4
[2021-07-22] MEDS: Lactated Ringers 1,000 ML 15 ML IV (08:29)
--- NOTE | 2021-07-22 09:16 | OP.CCLET_ITS ---
07/22/2021 Ronny Dejesus Re : Colonoscopy procedure for Gigi Coronado Dear Oelg This procedure was performed on Thursday, July 22, 2021. My impressions and recommendations are as follows: Impressions : - Two non-bleeding colonic angioectasias. Treated with a monopolar probe. - The examination was otherwise normal on direct and retroflexion views. - No specimens collected. Recommendations : - Discharge patient to home. - Resume previous diet. - Continue present medications. - Repeat colonoscopy in 10 years for screening purposes. My findings are described in the full procedure note, which is enclosed. If I can be of further assistance, please feel free to contact me at Doctor phone number(s): , Work: . Sincerely, Bryant Felix MD 07/22/2021 9:15:47 AM This report has been signed electronically.
--- NOTE | 2021-07-22 09:16 | OP.COLON_ITS ---
Patient Name: Gigi Coronado Procedure Date: 07/22/2021 8:46 AM Date of : 1955 Age: 66 Procedure: Colonoscopy Indications: High risk colon cancer surveillance: Personal history of colonic polyps Providers: Bryant Felix MD Referring MD: Ronny Dejesus Medicines: Monitored Anesthesia Care Patient Profile: This is a 66 year old male. Refer to note in patient chart for documentation of history and physical. Last Colonoscopy: 3 years ago. Complications: No immediate complications. Procedure: Pre-Anesthesia Assessment: - Prior to the procedure, a History and Physical was performed, and patient medications and allergies were reviewed. The patient's tolerance of previous anesthesia was also reviewed. The risks and benefits of the procedure and the sedation options and risks were discussed with the patient. All questions were answered, and informed consent was obtained. Prior Anticoagulants: The patient has taken no previous anticoagulant or antiplatelet agents. After reviewing the risks and benefits, the patient was deemed in satisfactory condition to undergo the procedure. After I obtained informed consent, the scope was passed under direct vision. Throughout the procedure, the patient's blood pressure, pulse, and oxygen saturations were monitored continuously. The pediatric colonoscope was introduced through the anus and advanced to the cecum, identified by appendiceal orifice and ileocecal valve. The colonoscopy was performed without difficulty. The patient tolerated the procedure well. The quality of the bowel preparation was good. Scope In: 8:56:55 AM Scope Withdrawal Time 0 hours 8 minutes 42 seconds Scope Out: 9:08:50 AM Total Procedure Duration Time 0 hours 11 minutes 55 seconds Findings: Two small localized angioectasias without bleeding were found in the rectum. Fulguration to ablate the lesion to prevent bleeding by monopolar probe was successful. Estimated blood loss was minimal. The exam was otherwise without abnormality on direct and retroflexion views. Impression: - Two non-bleeding colonic angioectasias. Treated with a monopolar probe. - The examination was otherwise normal on direct and retroflexion views. - No specimens collected. Recommendation: - Discharge patient to home. - Resume previous diet. - Continue present medications. - Repeat colonoscopy in 10 years for screening purposes. Procedure Code(s): --- Professional --- 53147, Colonoscopy, flexible; with control of bleeding, any method Diagnosis Code(s): --- Professional --- Z86.010, Personal history of colonic polyps K55.20, Angiodysplasia of colon without hemorrhage CPT copyright 2017 [employer]. All rights reserved. The codes documented in this report are preliminary and upon coder operator review may be revised to meet current compliance requirements. Bryant Felix MD 07/22/2021 9:15:47 AM This report has been signed electronically. Number of Addenda: 0 Note Initiated On: 07/22/2021 8:46 AM
--- NOTE | 2021-07-24 11:13 | HP.PCM_ITS ---
HPI - General HPI Narrative LETA PIMENTEL, is a 66 M who presents for screening colonoscopy. Patient had colonoscopy several years ago and requires repeat for surveillance. Patient is not having any abdominal pain or blood in the stool. [facility] Medical History (Updated 07/24/21 @ 11:[address] Bryant Felix MD) Arm paresthesia, left Back pain Cancer Chest pain Gastric reflux Hepatitis History of diverticulitis History of stress test HTN (hypertension) Hx of reduction of nasal fracture Injury of back Injury of head and neck Left arm pain Prostate cancer RLS (restless legs syndrome) Smoker Stroke Syncope TIA (transient ischemic attack) Home Medications atorvastatin 10 mg tablet 10 mg PO QHS 01/23/19 [History Last Taken 07/21/21] oxybutynin chloride 10 mg PO DAILY 07/17/21 [History Last Taken 07/21/21] Allergy/AdvReac Type Severity Reaction Status Date / Time Penicillins Allergy PT UNSURE Verified 07/17/21 14:26 OF REACTION Family History Father Colon cancer Grandfather Colon cancer Surgical History (Updated 07/17/21 @ 14:37 by Jess Vee) History of cardiac catheterization Hx of colonoscopy S/P cervical spinal fusion S/P prostatectomy Social History (Updated 01/30/19 @ 08:[address] Bryant Felix MD) Smoking Status: Current every day smoker tobacco type: cigarettes alcohol intake: current substance use type: marijuana Past Medical/Surgical History Planned Operation Planned Operative Procedure/s: COLONOSCOPY S.O.S: No Previous Hospitalizations/Surgeries HX Hospitalizations: No HX of Surgeries: cervical/neck fusion 2004 nasal fx colonoscopy 2018 prostatectomy 2018 [facility] Any Problems With Anesthesia: Yes (as teen, woke up swinging/ nasal fx) You/Your Family Experience Fever (Hyperthermia) With Anes: No Cholinesterase deficiency: No Cardiovascular Hx Chest Pain within Last 2 months: No Hx of Irregular Heartbeat and/or Afib: No (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) Hx Heart Attack: No (aorta has plaque per CT) Hx Congestive Heart Failure: No Hx Rheumatic Fever: No Hx Hypertension: Yes (STOPPED TAKING BP MED 2006, PER ) Hx Internal Defibrillator: No Hx Pacemaker: No Hx Cardiac Catheterization: Yes (04/20/16 [facility]) What facility was last heart cath performed: unknown Date of last Heart Cath: unknown Hx Cardiac Surgery/Stents/Etc.: No Hx Stress Test: Yes (2016 and echo 2016) HX Edema: No Hx Pain in Legs when Walking/Leg Cramps: Yes (cramps at night occas) Respiratory Chronic Cough: No HX of Shortness of Breath: No (denies) Hoarseness: No Hx Chronic Obstructive Pulmonary Disease (COPD): No Hx Asthma: No Hx Emphysema: No Hx Sleep Apnea: No Hx Respiratory Tract Infection/Cold (presently): No Do You Snore Loudly (louder than talking or can be heard): No Do You Often Feel Tired/ Fatigued/ Sleepy Dring Daytime?: No Has Anyone Observed You Stop Breathing During Sleep?: No Result (for STOP score): Negative Hx Smoking: Yes (1-2 ppd for 45+ yrs) Smoking Status: Current every day smoker Gastrointestinal Hx Gastroesophageal Reflux: No Hx Gastrointestinal Disorders: Yes (stomach pain) Hx Gastrointestinal Bleed: No Hx Ulcer: No Hx Hiatal Hernia: No Difficulty Chewing/Swallowing: No Special diet followed at home: No Hx Unplanned Weight Loss of 20#: No (.) HX Unplanned Weight Gain of 20#: No Neurological Hx Seizures: No HX Syncope/Blackout Spells/Unconsciousness: No Hx Transient Ischemic Attacks (TIA): Yes Hx Multiple Sclerosis: No Hx Parkinson's Disease: No Hx Head/Neck Injury: Yes (cervical fusion limited rom) Hx Headaches: Yes (DAILY) Hx Back Injury/Pain: Yes (L5-L6 injury/chronic pain) Recent Onset of Speech Difficulty: No Restless Legs: No Does patient have nerve stimulator: No Blood Disorder Hx Leukemia: No Bleeding Tendencies: No Hx Deep Vein Thrombosis: No Hx High Cholesterol: Yes (on med) Blood Transmitted Disease: No Hx Hepatitis: Yes (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) Hx Cirrhosis: No Hx Anemia: No Hx Blood Disorders: No Genitourinary Hx Renal Disease: Yes (prostate cancer/ frequent urination) Hx Dialysis: No Musculoskeletal Hx Arthritis: Yes (lower spine) Hx Rheumatoid Arthritis: No Hx Gout: No Recent Onset of an Orthopedic Problem: No (chronic back/neck pain) Endocrine Hx Diabetes: No Thyroid Disease: No Hx Steroid Therapy: No Psycho/Social Hx Substance Use: Yes (DAILY MARIJUANA) Hx Alcohol Use: Yes (3-4 drinks on weekend, not recently) Hx Anxiety: No Hx Depression: No Mental Illness: No Hx Dementia: No Miscellaneous Hx Cancer: Yes (prostate/ surgery and radiation) Recent Exposure to Contagious Disease: No Hx of C-Diff: No Any Loose Teeth: Yes (UPPER DENTURES) Allergies Penicillins Allergy (Verified 07/17/21 14:26) PT UNSURE OF REACTION Maternal: Family History Father Colon cancer Grandfather Colon cancer Heart Disease Sibling: Family History Father Colon cancer Grandfather Colon cancer Stroke Discharge Is Pt Admitted From a Senior Care, or a Care Home: No After D/C, Where Do you Plan to Go: Return Home From the [facility] History Number of Risk Factors: 7 Vital Signs Vital Signs Vital Signs: Weight Weight: 150 lb 9.211 oz Body Mass Index (BMI) 20.4 Physical Exam Const alert and oriented x3 Resp normal respiratory effort and normal air movement Cardio regular rate and regular rhythm GI soft to palpation, non-tender and non-distended Assessment & Plan Assessment/Plan (1) History of colon polyps: PLAN: I explained endoscopy in detail to the patient. I explained the risks including but not limited to stroke or heart attack with anesthesia, perforation of the GI tract, bleeding, infection. I explained that any of these could necessitate further emergency surgery. The patient understands and all questions were answered sufficiently. The patient wishes to proceed with procedure. Bryant Felix MD Pager: [facility] [address] [place] [address], [address] [place] [address] Office: Surgery Risks - Colonoscopy Risks Include but are not Limited To: Risks include but are not limited to: Bleeding, perforation requiring further surgery, inability to complete colonoscopy requiring barium enema.
== END 2021-07-22 09:48 | disposition home or self-care (01) ==
LOC: EN 07:54 → AC 07:54
PROVIDERS: PCP Family Medicine; Referring Provider Family Medicine; Visit Provider Surgery
PROC: 0DJD8ZZ Inspection of Lower Intestinal Tract, Via Natural or Artificial Opening Endoscopic (ICD-10-PCS; CPT 45378; principal; 2021-07-22 08:55)
DX: Z12.11 Encounter for screening for malignant neoplasm of colon (principal); F17.210 Nicotine dependence, cigarettes, uncomplicated; F12.90 Cannabis use, unspecified, uncomplicated; Z80.0 Family history of malignant neoplasm of digestive organs; Z86.010 Personal history of colon polyps; Z79.899 Other long term (current) drug therapy; Z86.73 Personal history of transient ischemic attack (TIA), and cerebral infarction without residual deficits
CPT/HCPCS: 45382; 87426; J7120; J2405

== ENCOUNTER → 2022-07-30 | Outpatient (CLI) | payer MEDICARE, SELFPAY ==
[2022-07-30 08:16] LABS: PSA,Total- Diagnostic < 0.01 ng/mL (0.0-4.0)
== END | disposition home or self-care (01) ==
LOC: LAB 07:05
PROVIDERS: PCP Family Medicine; Referring Provider Urology; Visit Provider Urology
DX: C61 Malignant neoplasm of prostate (principal)
CPT/HCPCS: 36415; 84153

== ENCOUNTER → 2023-08-24 | Outpatient (CLI) | payer MEDICARE, SELFPAY ==
[2023-08-24 14:06] LABS: PSA,Total- Diagnostic < 0.01 ng/mL (0.0-4.0)
== END | disposition home or self-care (01) ==
LOC: LAB 12:30
PROVIDERS: PCP Family Medicine; Referring Provider Urology; Visit Provider Urology
DX: C61 Malignant neoplasm of prostate (principal)
CPT/HCPCS: 36415; 84153

== ENCOUNTER → 2024-05-17 | Outpatient (CLI) | payer MEDICARE, SELFPAY ==
--- NOTE | 2024-05-17 10:01 | US_ITS ---
PROCEDURE: ABDOMEN COMPLETE REASON FOR EXAM: Generalized abdominal pain. COMPARISON: None. FINDINGS: Liver: Grossly normal size and echotexture. Multiple cysts are seen in both lobes of the liver. The largest cyst measures 2.3 cm x 2.1 cm x 1.8 cm. This is in the right lobe of the liver in the septated. Gallbladder: There is a 1.2 cm x 0.9 cm x 0.9 cm heterogeneous soft tissue mass at the fundal portion of the gallbladder with vascularity. A neoplastic process should be ruled out. A gallbladder polyp is seen measuring 2 mm x 2 mm x 3 mm. The gallbladder wall measures 8 mm. This is thickened. Common bile duct: Normal measuring it measures 5.2 mm.. Pancreas: Visualized portions are sonographically unremarkable. Kidneys: The right kidney measures 11.6 cm x 5.8 cm 4.1 cm.. The left kidney measures 11.9 cm 6.2 cm 5.5 cm. A 2 mm x 3 mm calculus is seen in the lower pole calyx of the left kidney. Renal parenchymal thicknesses and echotextures are preserved. No hydronephrosis. Spleen: Normal in size and echotexture measuring . Aorta: Visualized abdominal aorta is of normal size. IVC: Visualized inferior vena cava is unremarkable. Peritoneal Findings: No ascites identified. US/Abdomen Complete IMPRESSION: There is a 1.2 cm x 0.9 cm x 0.9 cm soft tissue density in the fundal portion o f the gallbladder with vascularity. Correlation with a CT scan is recommended for further evaluation. Multiple small hepatic cysts. Nonobstructive calculus in the left kidney. Reading Location: [id number]
== END | disposition home or self-care (01) ==
LOC: US 09:58
PROVIDERS: PCP Nurse Practitioner Family; Referring Provider Nurse Practitioner Family; Visit Provider Nurse Practitioner Family
DX: R10.84 Generalized abdominal pain (principal)
CPT/HCPCS: 76700

== ENCOUNTER → 2024-06-12 | Outpatient (CLI) | payer MEDICARE, SELFPAY ==
--- NOTE | 2024-06-12 07:48 | CT_ITS ---
PROCEDURE: ABDOMEN WITH IV CONTRAST 06/12/2024 REASON FOR EXAM: 69-year-old male, generalized upper/mid abdominal pain, history of prostate cancer status post prostatectomy and radiation therapy. TECHNIQUE: Abdomen CT with intravenous contrast. Coronal and Sagittal reconstruction series were provided. One or more dose reduction techniques were used (e.g., Automated exposure control, adjustment of the mA and/or kV according to patient size, use of iterative reconstruction technique. PATIENT PREPARATION: Per protocol ORAL CONTRAST TYPE: None. CONTRAST: Isovue 370 VOLUME: 100mL RADIATION DOSE SUMMARY: CTDlvol: 25 mGy DLP: 301 mGycm COMPARISON: CTA abdomen pelvis 04/25/2019. FINDINGS: Lung bases: Bibasilar atelectasis/scarring. The heart is normal in size. Liver: The liver is normal in size with scattered cysts and additional hypodensities. The major portal veins are patent. No biliary ductal dilation. Gallbladder: No radiopaque stones within the gallbladder. Spleen: Normal size. Pancreas: Unremarkable. Adrenals: Mild thickening of the bilateral adrenal glands without focal nodule. Kidneys: Punctate nonobstructing left lower pole renal calculus. No hydronephrosis. Bowel: The visualized bowel loops are normal in caliber. No upper abdominal ascites or free air. Lymph nodes: No suspicious lymphadenopathy. Vasculature: Severe mixed plaque of the aortoiliac vessels. Bones: Thoracolumbar spondylosis. No aggressive osseous lesions. CT/Abdomen WITH IV Contrast IMPRESSION: 1. No acute abdominopelvic finding. 2. Punctate nonobstructing left lower pole renal calculus. Reading Location: [id number]
[2024-06-12 10:00] LABS: PSA,Total- Diagnostic < 0.02 ng/mL (0.00-4.00)
== END | disposition home or self-care (01) ==
PROVIDERS: PCP Nurse Practitioner Family; Referring Provider Nurse Practitioner Family; Visit Provider Nurse Practitioner Family
DX: K82.8 Other specified diseases of gallbladder (principal); C61 Malignant neoplasm of prostate
CPT/HCPCS: 36415; 74160; 84153; Q9967

== ENCOUNTER → 2024-08-16 | Outpatient (CLI) | payer MEDICARE, SELFPAY ==
--- OUTSIDE RECORDS SUMMARY | 2024-08-16 06:50 | XMS RPT_ITS | CCD ---
Author Organization [facility] CliniSyfl Care Team Providers Care Foreign Trade Teacher Name Role Phone MartinNavneet Unavailable Abrahan Jeff Unavailable Unavailable Dr. Ronny Dejesus Primary Care Provider Dr. Bryant Felix Attending Provider [phone] MIRANDA BERMUDEZ APRN Admitting Unavailable MIRANDA BERMUDEZ APRN Attending Unavailable MIRANDA BERMUDEZ APRN Primary Care Unavailable MIRANDA BERMUDEZ APRN Attending Unavailable MIRANDA BERMUDEZ APRN Primary Care Unavailable MIRANDA BERMUDEZ APRN Admitting Unavailable Aidan SUPERVISING BROKER-C, Miranda Bucio Primary Care Provider Aidan SUPERVISING BROKER-CMiranda Attending Provider [phone] Aidan [employer]PERVISING BROKER-C, Miranda Bucio Referring Provider Archie DEGROOT, Dr. Dave Lemons Other Provider Miranda Bermudez Attending UnavailMiranda Brown Referring UnavailDave Kim Consulting Unavailable Miranda Bermudez Primary Care UnavailRonny Wild Primary Care Unavailable Dave Almanza Attending Unavailable Dave Almanza Referring Unavailable Miranda Bermudez Primary Care Unavailabl Harrison Luna Attending Unavailable Harrison Lara Referring Unavailable Miranda Bermudez Referring UnavailMiranda Brown Primary Care Unavailabl Harrison Luna Attending Unavailable Miranda Bermudez Attending Unavailabl Miranda Looney Referring UnavailMiranda Brown Primary Care Unavailabl e Allergies Allergy Classification Reported Allergen(s) Allergy Type Date of Onset Reaction(s) Facility (5 sources) Penicillins; Translations: [Penicillins] Allergy to substance 2 PT UNSURE OF REACTION [facility] Medications Current Medications Medication Drug Class(es) Dates Sig (Normalized) Sig (Original) atorvastatin 10 mg oral tablet (4 sources) HMG-CoA Reductase Inhibitor Start: 01-23-2019 take 1 tablet by mouth at bedtime Atorvastatin 10 mg tablet Active 10 mg PO AT BEDTIME January 23, 2019 1:00am 24 hr oxybutynin chloride 10 mg extended release oral tablet (4 sources) Cholinergic Muscarinic Antagonist Start: 07-17-2021 take 1 tablet by mouth once daily Oxybutynin Chloride 10 mg tablet extended release 24hr Active 10 mg PO DAILY July 17, 2021 12:00am Completed/Discontinued Medications Medication Drug Class(es) Dates Sig (Normalized) Sig (Original) acetaminophen 325 mg / HYDROcodone bitartrate 5 mg oral tablet (4 sources) Opioid Agonist Start: 11-17-2017 End: 01-23-2019 Hydrocodone-Acetami nophen 1 EACH tablet Discontinued 1 NMA PO EVERY 4 HOURS NEEDED as needed for Pain 14 November 17, 2017 7:48am January 23, 2019 9:57am Start: 11-17-2017 End: 01-23-2019 Hydrocodone-Acetaminophen Di scontinued 1 EACH PO EVERY 4 HOURS NEEDED 14 November 17, 2017 7:48am January 23, 2019 9:57am aspirin 81 mg chewable tablet (4 sources) Platelet Aggregation Inhibitor, Nonsteroidal Anti-inflammatory Drug Start: 04-20-2016 End: 08-02-2017 take 1 tablet by mouth once daily Aspirin 81 MG tablet,chewable Discontinued 81 mg PO DAILY@0800 April 20, 2016 1:00am August 02, 2017 11:11am ciprofloxacin 500 mg oral tablet (4 sources) Quinolone Antimicrobial Start: 11-17-2017 End: 01-23-2019 take 1 tablet by mouth twice daily Ciprofloxacin Hcl 500 MG tablet Discontinued 500 mg PO TWICE A DAY November 17, 2017 12:00am January 23, 2019 9:57am docusate sodium 100 mg oral capsule (4 sources) Start: 11-17-2017 End: 01-23-2019 take 1 capsule by mouth twice daily Docusate Sodium 100 MG capsule Discontinued 100 mg PO TWICE A DAY November 17, 2017 12:00am January 23, 2019 9:57am Problems Problem Classification Problem Date Documented Date Episodic/Chronic Abdominal pain (1 source) Generalized abdominal pain; Translations: [Generalized abdominal pain] Onset: 05-29-2024 Episodic Biliary tract disease (2 sources) Calculus of bile duct without cholangitis or cholecystitis without obstruction; Translations: [Other specified diseases of gallbladder] Onset: 06-14-2024 Episodic Cancer of prostate (5 sources) Malignant tumor of prostate; Translations: [Malignant neoplasm of prostate] Onset: 09-02-2023 11-17-2017 Chronic Diabetes mellitus without complication (1 source) Other abnormal glucose; Translations: [Other abnormal glucose] Onset: 05-02-2024 Episodic Disorders of lipid metabolism (1 source) Hyperlipidemia, unspecified; Translations: [Hyperlipidemia, unspecified] Onset: 05-02-2024 Chronic Nonspecific chest pain (4 sources) Chest pain; Translations: [Chest pain, unspecified] 08-02-2017 Episodic Other and unspecified benign neoplasm (2 sources) History of polyp of colon; Translations: [History of colonic polyps] 07-24-2021 Episodic Other connective tissue disease (4 sources) Pain in left arm; Translations: [Pain in left arm] 08-02-2017 Episodic Other hereditary and degenerative nervous system conditions (4 sources) Restless legs; Translations: [Restless legs syndrome] 08-02-2017 Chronic Other nervous system disorders (4 sources) Paresthesia of left upper limb; Translations: [Paresthesia of skin] 08-02-2017 Episodic Other screening for suspected conditions (not mental disorders or infectious disease) (7 sources) Patient encounter status; Translations: [Encounter for screening for malignant neoplasm of colon] Onset: 10-21-2023 06-19-2021 Episodic Peripheral and visceral atherosclerosis (1 source) Atherosclerosis of aorta; Translations: [Atherosclerosis of aorta] Onset: 05-02-2024 Chronic Substance-related disorders (1 source) Nicotine dependence, unspecified, uncomplicated; Translations: [Nicotine dependence, unspecified, uncomplicated] Onset: 05-02-2024 Chronic Results Test Name Value Interpretation Reference Range Facility Gastroenterology Visit Repor ton 08-03-2024 Gastroenterology Visit Report [facility] Gastroenterology [address] [place] [address] OFFICE VISIT Date of Service: 08/03/24 MR#: [id number] Acct: [id number] Name: LETA PIMENTEL Rep #: [id number] : 1955 Provider: Harrison Lara DO Age/Sex: 69/M Location: [facility] Status: Signed Intake Vital Signs 07/22/21 08:20 Height 6 ft Intake Visit Reasons: ABNORMAL CT/US GALLBLADDER Allergies Penicillins Allergy (Verified 07/17/21 14:26) PT UNSURE OF REACTION Medications ???Medication ???Instructions ???Recorded ???Confirmed ???Type oxybutynin chloride 10 mg 5 mg PO DAILY 08/03/24 08/03/24 Hi story tablet,extended release 24 hr Have you fallen in the past year?: No PFSH Medical History (Updated 08/03/24 @ 15:[address] Harrison Lara DO) Cancer Hepatitis Back pain Injury of back Injury of head and neck Syncope TIA (transient ischemic attack) History of diverticulitis Gastric reflux Smoker History of stress test Hx of reduction of nasal fracture Prostate cancer Left arm pain Chest pain Arm paresthesia, left Stroke HTN (hypertension) RLS (restless legs syndrome) Surgical History (Updated 07/17/21 @ 14:37 by Jess Vee) History of cardiac catheterization Hx of colonoscopy S/P prostatectomy S/P cervical spinal fusion Family History Father Colon cancer Grandfather Colon cancer Social History (Updated 08/03/24 @ 15:05 by Marla Pérez) Smoking Status: Current every day smoker tobacco type: cigarettes alcohol intake: never substance use type: marijuana HPI HPI Details: LETA PIMENTEL, is a 69 M who presents to the office today for initial consult. abd US 3.08.06 There is a 1.2 cm x 0.9 cm x 0.9 cm soft tissue density in the fundal portion of the gallbladder with vascularity. Correlation with a CT scan is recommended for further evaluation. Multiple small hepatic cysts. Nonobstructive calculus in the left kidney. abd CT 06.12.24 1. No acute abdominopelvic finding. 2. Punctate nonobstructing left lower pole renal calculus. *BGI established 08.03.24 pt reports that he has been having abdominal issues for the past 6 years since he had prostate surgery. Pt reports he had 34 rounds of radiation and that is the area where he is now having constant cramping and discomfort. Pt reports he was referred for abnormal findings on recent imaging. ROS Const Constitutional: Positive for headache(s); No fatigue, fever(s) or weight change ENT ENT: Positive for headache(s); No difficulty swallowing Gastro GI: Positive for abdominal pain and nausea/dyspepsia; No belching, bloating, change in bowel habits, change in stool character, coffee ground emesis, constipation, cramping, diarrhea, heartburn, difficulty swallowing, feeling full early, excessive flatus, incontinent of stools, Vomiting blood/hematemesis, Blood in stool, loose stools, Black,tarry stools, pain with swallowing, vomiting or other Musc Musculoskeletal: Positive for joint pain, back pain, numbness, tingling, Arthritis and sciatica Skin Skin: No yellowing of the eye or itchy eyes Neuro Neurology: Positive for headache(s), numbness and tingling Psych Psychiatric: No anxiety and No depression Endo Endocrine: No fatigue or weight change Aller/Imm Allergy/Immunologic: No itchy eyes Chan/Lymp Hematologic/Lymphatic: No easy bleeding or easy bruising Exam Const General: cooperative Eyes Sclera: sclerae normal Chest Chest palpation inspection: normal inspection of the chest Resp Effort Inspection: normal respiratory effort Auscultation: Bilateral: Clear to Auscultation Cardio Rate: regular rate Rhythm: regular rhythm GI Inspection: normal to inspection Auscultation: normal bowel sounds Percussion: normal to percussion Palpation: soft and no hepatosplenomegaly Rectal Exam: deferred Assessment and Plan Assessment and Plan (1) Abdominal pain: Status: Acute (2) Abnormal finding on imaging: Status: Acute Plan: 69-year-old gentleman with history of prostate cancer [place] score 7 status post prostatectomy and external beam radiation. He also has a history of diverticulitis and a history of adenomatous polyps. His last endoscopy was in 2021 and back in [address] Bryant Felix. He had been having abdominal pain and for evaluation and ultrasound was ordered by his primary care provider. He had an ultrasound of the right upper quadrant followed by CT scan abdomen pelvis: Ultrasound of the right upper quadrant FINDINGS: Liver: Grossly normal size and echotexture. Multiple cysts are seen in both lobes of the liver. The largest cyst measures 2.3 cm x 2.1 cm x 1.8 cm. This is in the right lobe of the liver in the septated. Gallbladder: There is a 1.2 cm (more content not included)... Normal [facility] Abdomen WITH IV Contraston 0 06-12-2024 Abdomen WITH IV Contrast [facility] Imaging Services [address] [place] [address] Abdomen WITH IV Contrast MR#: [id number] Acct: [id number] Name: LETA PIMENTEL Rep #: [id number] : 1955 M 69 From: Shonda Ford nd, MD PCP: AUTUMN Alvarez Status: REG CLI Study: Abdomen WITH IV Contrast Date of Exam: 5 Exam# [id number] Ordering Dr: Miranda Bermudez SUPERVISING BROKER-Natasha PROCEDURE: ABDOMEN WITH IV CONTRAST 06/12/2024 REASON FOR EXAM: 69-year-old male, generalized upper/mid abdominal pain, history of prostate cancer status post prostatectomy and radiation therapy. TECHNIQUE: Abdomen CT with intravenous contrast. Coronal and Sagittal reconstruction series were provided. One or more dose reduction techniques were used (e.g., Automated exposure control, adjustment of the mA and/or kV according to patient size, use of iterative reconstruction technique. PATIENT PREPARATION: Per protocol ORAL CONTRAST TYPE: None. CONTRAST: Isovue 370 VOLUME: 100mL RADIATION DOSE SUMMARY: CTDlvol: 25 mGy DLP: 301 mGycm COMPARISON: CTA abdomen pelvis 04/25/2019. FINDINGS: Lung bases: Bibasilar atelectasis/scarring. The heart is normal in size. Liver: The liver is normal in size with scattered cysts and additional hypodensities. The major portal veins are patent. No biliary ductal dilation. Gallbladder: No radiopaque stones within the gallbladder. Spleen: Normal size. Pancreas: Unremarkable. Adrenals: Mild thickening of the bilateral adrenal glands without focal nodule. Kidneys: Punctate nonobstructing left lower pole renal calculus. No hydronephrosis. Bowel: The visualized bowel loops are normal in caliber. No upper abdominal ascites or free air. Lymph nodes: No suspicious lymphadenopathy. Vasculature: Severe mixed plaque of the aortoiliac vessels. Bones: Thoracolumbar spondylosis. No aggressive osseous lesions. CT/Abdomen WITH IV Contrast IMPRESSION: 1. No acute abdominopelvic finding. 2. Punctate nonobstructing left lower pole renal calculus. Reading Location: [facility] CC: AUTUMN Bermudez Help Desk Intern: Signed Normal [facility] Diagnostic total prostate sp ecific antigen (PSA) measurementOrdered By: Miranda Bermudez on 06-12-2024 Prostate Specific Antigen Total < 0.02 ng/mL 0.00-4.00 [facility] Comment on above: This test was perfor med using the [employer] tPSA method. Measured values of a patient sample can vary depending on the testing procedure used. PSA values determined on patient samples by different testing procedures cannot be used interchangeably. If there is a change in PSA assays while monitoring therapy, sequential testing should be performed to confirm baseline values. PSA,Total- Diagnosticon 05-15 PSA, DIAGNOSTIC < 0.02 Normal 0.00-4.00 [facility] Comment on above: Result Comment: This test was performed using the [employer] tPSA method. Measured values of a patient??sample can vary depending on the testing procedure used. PSA values determined on patient samples by different testing procedures cannot be used interchangeably. If there is a change in PSA assays while monitoring therapy, sequential testing should be performed to confirm baseline values. Performed By: #### L [phone] #### [facility] [address] [facility] [place], [place], [address] Abdomen Completeon Abdomen Complete [facility] Imaging Services [address] [place], [place] [address] Abdomen Complete MR#: [id number] Acct: [id number] Name: LETA PIMENTEL Rep #: [id number] : 1955 M 69 From: Alvarez robertson MD PCP: AUTUMN Alvarez Status: REG CLI Study: Abdomen Complete Date of Exam: 05/17/24 Exam# [id number] Ordering Dr: Miranda Bermudez PROCEDURE: ABDOMEN COMPLETE REASON FOR EXAM: Generalized abdominal pain. COMPARISON: None. FINDINGS: Liver: Grossly normal size and echotexture. Multiple cysts are seen in both lobes of the liver. The largest cyst measures 2.3 cm x 2.1 cm x 1.8 cm. This is in the right lobe of the liver in the septated. Gallbladder: There is a 1.2 cm x 0.9 cm x 0.9 cm heterogeneous soft tissue mass at the fundal portion of the gallbladder with vascularity. A neoplastic process should be ruled out. A gallbladder polyp is seen measuring 2 mm x 2 mm x 3 mm. The gallbladder wall measures 8 mm. This is thickened. Common bile duct: Normal measuring it measures 5.2 mm.. Pancreas: Visualized portions are sonographically unremarkable. Kidneys: The right kidney measures 11.6 cm x 5.8 cm 4.1 cm.. The left kidney measures 11.9 cm 6.2 cm 5.5 cm. A 2 mm x 3 mm calculus is seen in the lower pole calyx of the left kidney. Renal parenchymal thicknesses and echotextures are preserved. No hydronephrosis. Spleen: Normal in size and echotexture measuring . Aorta: Visualized abdominal aorta is of normal size. IVC: Visualized inferior vena cava is unremarkable. Peritoneal Findings: No ascites identified. US/Abdomen Complete IMPRESSION: There is a 1.2 cm x 0.9 cm x 0.9 cm soft tissue density in the fundal portion of the gallbladder with vascularity. Correlation with a CT scan is recommended for further evaluation. Multiple small hepatic cysts. Nonobstructive calculus in the left kidney. Reading Location: [id number] CC: AUTUMN Bermudez Help Desk Intern: Signed Normal [facility] CBC + DIFFon 05-02-2024 Baso # 0.01 x10EE3/UL Normal 0.00 - 0.10 [facility] Comment on above: Performed By: #### 2 33278 #### [facility],[address] [place] [address] Basophils/100 WBC (Bld) 0.2 % Normal 0.0 - 2.0 [facility] Comment on above: Performed By: #### 2 39366 #### [facility],[address] [place] [address]2700 CBC + DIFF Normal [facility] Comment on above: Result Comment: CBC- COMPLETE BLOOD COUNT Performed By: #### 2 03961 #### [facility],[address] [place] [address] 25793 EO # 0.34 x10EE3/UL Normal 0.00 - 0.50 [facility] Comment on above: Performed By: #### 2 67429 #### [facility],[address] [place] [address] Eosinophils/100 WBC (Bld) 4.5 % Normal 0.0 - 7.0 [facility] Comment on above: Performed By: #### 2 96481 #### [facility],[address] [place] [address] 71264 Erythrocyte distribution width (RBC) [Ratio] 13.4 % Normal 12.0 - 15.6 [facility] Comment on above: Performed By: #### 2 17506 #### [facility],[address] [place] [address] 38275 Hematocrit (Bld) [Volume fraction] 44.3 % Normal 40.0 - 52.0 [facility] Comment on above: Performed By: #### 2 75949 #### [facility],[address] [place] [address] 73935 Hemoglobin (Bld) [Mass/Vol] 14.9 g/dL Normal 13.0 - 17.5 [facility] Comment on above: Performed By: #### 2 69701 #### [facility],[address] [place] [address] 86780 Lymph # 2.80 x10EE3/UL Normal 0.80 - 2.80 [facility] Comment on above: Performed By: #### 2 42536 #### [facility],[address] [place] [address] 49351 Lymphocytes/100 WBC (Bld) 37.2 % Normal 20.0 - 45.0 [facility] Comment on above: Performed By: #### 2 68205 #### [facility],[address] [place] [address] MANUAL DIFF N/A Normal [facility] Comment on above: Performed By: #### 2 50566 #### [facility],[address] [place] [address] MCH (RBC) [Entitic mass] 33 pg Normal 27 - 33 [facility] Comment on above: Performed By: #### 2 67666 #### [facility],[address] [place] [address] MCHC 34 X10 3 Normal 32 - 36 [facility] Comment on above: Performed By: #### 2 01344 #### [facility],[address] [place] [address] MCV (RBC) [Entitic vol] 97 fL Normal 81 - 98 [facility] Comment on above: Performed By: #### 2 33338 #### [facility],[address] [place] [address] [place] # 0.52 x10EE3/UL Normal 0.20 - 1.00 [facility] Comment on above: Performed By: #### 2 34906 #### [facility],[address] [place] [address] MONOS % 6.9 % Normal 0.0 - 10.0 [facility] Comment on above: Performed By: #### 2 11274 #### [facility],[address] [place], [place] [id number] Morphology Dixon (Bld) [Interp] N/A Normal [facility] Comment on above: Performed By: #### 2 38876 #### [facility],[address] [place] [address] 06466 Neut # 3.85 x10EE3/UL Normal 1.50 - 7.10 [facility] Comment on above: Performed By: #### 2 22387 #### [facility],[address] [place] [address] 11646 Neutrophils/100 WBC (Bld) 51.3 % Normal 46.0 - 76.0 [facility] Comment on above: Performed By: #### 2 84824 #### [facility],[address] [place] [address] 07390 PLATELET 261 x10EE3/UL Normal 150 - 450 [facility] Comment on above: Performed By: #### 2 32185 #### [facility],[address] [place] [address] 62470 Platelet mean volume (Bld) [Entitic vol] 9.3 fL Normal 6.4 - 10.5 [facility] Comment on above: Result Comment: AUTO MATED DIFFERENTIAL Performed By: #### 2 66012 #### [facility],[address] [place] [address] 85318 RBC 4.58 x 10EE6/UL Normal 4.50 - 6.00 [facility] Comment on above: Performed By: #### 2 37693 #### [facility],[address] [place] [address] 52249 WBC 7.5 x 10EE3/UL Normal 4.5 - 10.8 [facility] Comment on above: Performed By: #### 2 98852 #### [facility],[address] [place] [address] 12645 CMP with eGFRon 05-02-2024 AGE 69 years Normal [facility] Comment on above: Performed By: #### 2 46787 #### [facility],[address] [place] [address] 58156 Albumin [Mass/Vol] 4.2 g/dL Normal 3.4 - 5.0 [facility] Comment on above: Performed By: #### 2 98618 #### [facility],[address] [place] [address] 73445 Albumin/Globulin [Mass ratio] 1.6 {ratio} Normal 0.9 - 1.6 [facility] Comment on above: Performed By: #### 2 69151 #### [facility],[address] [place] [address] 14196 ALK PHOS 93 U/L Normal 46 - 116 [facility] Comment on above: Performed By: #### 2 59796 #### [facility],[address] [place] [address] 47500 ALT [Catalytic activity/Vol] 27 U/L Normal 16 - 63 [facility] Comment on above: Performed By: #### 2 79723 #### [facility],[address] [place] [address] 12381 Anion gap [Moles/Vol] 14 mmol/L Normal 10 - 20 [facility] Comment on above: Performed By: #### 2 64402 #### [facility],[address] [place] [address] 88525 AST [Catalytic activity/Vol] 14 U/L Low 15 - 37 [facility] Comment on above: Performed By: #### 2 09545 #### [facility],[address] [place] [address] 53277 B/C RATIO 15 ratio Normal 0 - 30 [facility] Comment on above: Performed By: #### 2 12690 #### [facility],[address] [place] [address] 27084 Bilirubin [Mass/Vol] 0.2 mg/dL Normal 0.2 - 1.0 [facility] Comment on above: Performed By: #### 2 17407 #### [facility],[address] [place] [address] 03595 Calcium [Mass/Vol] 9.7 mg/dL Normal 8.5 - 10.1 [facility] Comment on above: Performed By: #### 2 28511 #### [facility],[address] [place] [address] 33141 Chloride [Moles/Vol] 107 mmol/L Normal 98 - 107 [facility] Comment on above: Performed By: #### 2 39360 #### [facility],[address] [place] [address] 61639 CMP with eGFR Normal [facility] Comment on above: Result Comment: COMP REHENSIVE METABOLIC PANEL Performed By: #### 2 38439 #### [facility],[address] [place], [place] [address] CO2 [Moles/Vol] 30.1 mmol/L Normal 21.0 - 32.0 [facility] Comment on above: Performed By: #### 2 64796 #### [facility],[address] [place] [address] Creatinine [Mass/Vol] 0.91 mg/dL Normal 0.70 - 1.30 [facility] Comment on above: Performed By: #### 2 11716 #### [place] [address] GFR/1.73 sq M.predicted among non-blacks MDRD (S/P/Bld) [Vol rate/Area] mL/min/{1.73_m2} Normal 60 - 999 [facility] Comment on above: Performed By: #### 2 79070 #### [facility],[address] [place] [address] Result Comment: ACCO RDING TO THE NATIONAL KIDNEY DISEASE EDUCATION PROGRAM(NKDE), A NORMAL eGFR IS A VALUE GREATER THAN OR EQUAL TO 60 ML/MIN/1.73 SQ METERS. CHRONIC KIDNEY DISEASE: <60mL/MIN/1.73 SQ METERS KIDNEY FAILURE: <15mL/MIN/1.73 SQ METERS THIS TEST SHOULD ONLY BE USED FOR PATIENTS 18 YEARS OF AGE AND OLDER. Globulin (S) [Mass/Vol] 2.6 g/dL Normal 1.5 - 3.8 [facility] Comment on above: Performed By: #### 2 [id number] #### [place] [address] Glucose [Mass/Vol] 90 mg/dL Normal 74 - 106 [facility] Comment on above: Performed By: #### 2 [id number] #### [facility],[address] [place] [address] Potassium [Moles/Vol] 4.2 mmol/L Normal 3.5 - 5.1 [facility] Comment on above: Performed By: #### 2 92492 #### [facility],[address] [place] [address] Protein [Mass/Vol] 6.8 g/dL Normal 6.4 - 8.2 [facility] Comment on above: Performed By: #### 2 24423 #### [facility],[address] [place] [address]28 Sodium [Moles/Vol] 147 mmol/L High 136 - 145 [facility] Comment on above: Performed By: #### 2 86837 #### [facility],[address] [place] [address]902 Urea nitrogen [Mass/Vol] 14 mg/dL Normal 7 - 18 [facility] Comment on above: Performed By: #### 2 03841 #### [facility],[address] [place] [address] LIPID PROFILEon 05-02-2024 Cholesterol [Mass/Vol] 111 mg/dL Normal 0 - 240 [facility] Comment on above: Performed By: #### 2 61250 #### [facility],[address] [place] [address]41 Cholesterol in HDL [Mass/Vol] 39 mg/dL Low 40 - 60 [facility] Comment on above: Performed By: #### 2 15658 #### [facility],[address] [place] [address] 28722 Cholesterol in LDL [Mass/Vol] 57 mg/dL Normal 0 - 129 [facility] Comment on above: Performed By: #### 2 59955 #### [facility],[address] [place] [address]31 Cholesterol.total/Chol esterol in HDL [Mass ratio] 2.8 {ratio} Normal 0.0 - 5.0 [facility] Comment on above: Performed By: #### 2 19317 #### [facility],[address] [place] [address] 39895 Lipid 1996 panel Normal [facility] Comment on above: Result Comment: LIPI D PROFILE Performed By: #### 2 44953 #### [facility],[address] [place] [address] 85165 Triglyceride [Mass/Vol] 73 mg/dL Normal 0 - 150 [facility] Comment on above: Performed By: #### 2 85351 #### [facility],[address] [place] [address]048 PSA,Total- Diagnosticon 08-13 PSA, DIAGNOSTIC < 0.01 Normal 0.0-4.0 [facility] Comment on above: Result Comment: This test was performed using the TPSA assay method for the [employer] chemistry system. Values obtained with different assay methods cannot be used interchangably. When changing PSA assays in the course of monitoring a patient, additional sequential testing should be carried out to confirm baseline values. Performed By: #### L [phone] #### [facility] [address] [place], [place], [address] No Panel Informationon 07-17 Prostate Specific Antigen Screen < 0.01 ng/mL 0.00-4.00 [facility] Work Phone: Comment on above: This test was perfor med using the TPSA assay method for [employer] chemistry system. Values obtained with differentassay methods cannot be used interchangably.When changing PSA assays in the course of monitoring apatient, additional sequential testing should be carriedout to confirm baseline values. TESTOST,FREE AND TOTALon TESTOSTERONE TOT.LC/MS/MS 903 ng/dL Normal 250-1100 [facility] Comment on above: Result Comment: Men with clinically significant hypogonadal symptoms and testosterone values repeatedly in the range of the 200-300 ng/dL or less, may benefit from testosterone treatment after adequate risk and benefits counseling. For additional information, please refer to http://education.[employer]/faq/ [email or web address] (This link is being provided for informational/ educational purposes only.) This test was developed and its analytical performance characteristics have been determined by [employer] [place], [place]. It has not been cleared or approved by the U.S. Food and Drug Administration. This assay has been validated pursuant to the CLIA regulations and is used for clinical purposes. Performed By: #### T ESFT #### [facility] [place] [id number] [place], [place] TESTOSTERONE,FREE 119.2 pg/mL Normal 35.0-155.0 [facility] Comment on above: Result Comment: This test was developed and its analytical performance characteristics have been determined by [employer] [place]. It has not been cleared or approved by the U.S. Food and Drug Administration. This assay has been validated pursuant to the CLIA regulations and is used for clinical purposes. Performed By: #### T ESFT #### [facility] [address] [place], [place] CBC AND DIFFERENTIALon 03-07 Basophils (Bld) [#/Vol] 0.00 10*3/uL Normal 0.00 - 0.10 [facility] Comment on above: Performed By: #### C BCDF #### [address] [address] Basophils/100 WBC (Bld) 1.1 % Normal 0.0 - 2.0 [facility] Comment on above: Performed By: #### C BCDF #### [address] [address] Eosinophils (Bld) [#/Vol] 0.10 10*3/uL Normal 0.00 - 0.70 [facility] Comment on above: Performed By: #### C BCDF #### [address] [address] Eosinophils/100 WBC (Bld) 1.6 % Normal 0.0 - 6.0 [facility] Comment on above: Performed By: #### C BCDF #### [address] [address] Erythrocyte distribution width (RBC) [Ratio] 14.1 % Normal 11.5 - 14.5 [facility] Comment on above: Performed By: #### C BCDF #### [address] [address] Hematocrit (Bld) [Volume fraction] 44.1 % Normal 41.0 - 52.0 [facility] Comment on above: Performed By: #### C BCDF #### [address] [address] Hemoglobin (Bld) [Mass/Vol] 14.6 g/dL Normal 13.5 - 17.5 [facility] Comment on above: Performed By: #### C BCDF #### [address] [address] Lymphocytes (Bld) [#/Vol] 0.90 10*3/uL Low 1.20 - 4.80 [facility] Comment on above: Performed By: #### C BCDF #### [address] [address] Lymphocytes/100 WBC (Bld) 19.1 % Normal 13.0 - 44.0 [facility] Comment on above: Performed By: #### C BCDF #### [address] [address] MCHC (RBC) [Mass/Vol] 33.2 g/dL Normal 32.0 - 36.0 [facility] Comment on above: Performed By: #### C BCDF #### [address] [address] MCV (RBC) [Entitic vol] 99 fL Normal 80 - 100 [facility] Comment on above: Performed By: #### C BCDF #### [address] [address] Monocytes (Bld) [#/Vol] 0.40 10*3/uL Normal 0.10 - 1.00 [facility] Comment on above: Performed By: #### C BCDF #### [address] [address] Monocytes/100 WBC (Bld) 8.9 % Normal 2.0 - 10.0 [facility] Comment on above: Performed By: #### C BCDF #### [address] [address] Neutrophils (Bld) [#/Vol] 3.10 10*3/uL Normal 1.20 - 7.70 [facility] Comment on above: Performed By: #### C BCDF #### [address] [address] Neutrophils/100 WBC (Bld) 69.3 % Normal 40.0 - 80.0 [facility] Comment on above: Performed By: #### C BCDF #### [address] [address] Nucleated RBC/100 WBC (Bld) [Ratio] 0.1 /100 WBC Normal [facility] Comment on above: Performed By: #### C BCDF #### [address] [address] Platelets (Bld) [#/Vol] 214 10*3/uL Normal 150 - 450 [facility] Comment on above: Performed By: #### C BCDF #### [address] [address] RBC (Bld) [#/Vol] 4.47 x10E12/L Low 4.50 - 5.90 [facility] Comment on above: Performed By: #### C BCDF #### [address] [address] WBC (Bld) [#/Vol] 4.5 10*3/uL Normal 4.4 - 11.3 [facility] Comment on above: Performed By: #### C BCDF #### [address] [address] TSHon 03-07-2019 TSH Qn 0.72 m[IU]/L Normal 0.44 - 3.98 [facility] Comment on above: Result Comment: TSH testing is performed using different testing methodology at [facility] than at other [facility]. Direct result comparisons should only be made within the same method. Performed By: #### T SH2 #### [place] [address] [place] [address] Vital Signs Date Time Vital Sign Value Performing Clinician Imani kramer 07-22-2021 09:28-0400 Body temperature 96.9 [degF] Dr. Ronny Dejesus Work Phone: [facility] Work Phone: 07-22-2021 09:28-0400 Diastolic blood pressure 93 mm[Hg] Dr. Ronny Dejesus Work Phone: [facility] Work Phone: 07-22-2021 09:28-0400 Heart rate 64 /min Dr. Ronny Dejesus Work Phone: [facility] Work Phone: 07-22-2021 09:28-0400 Respiratory rate 16 /min Dr. Ronny Dejesus Work Phone: [facility] Work Phone: 07-22-2021 09:28-0400 SaO2% (BldA) [Mass fraction] 100 % Dr. Ronny Dejesus Work Phone: [facility] Work Phone: 07-22-2021 09:28-0400 Systolic blood pressure 155 mm[Hg] Dr. Ronny Dejesus Work Phone: [facility] Work Phone: 07-22-2021 08:20-0400 Body height 182.[address] Ronny Dejesus Work Phone: [facility] Work Phone: 07-22-2021 08:20-0400 Body mass index (BMI) [Ratio] 20.4 kg/m2 Dr. Ronny Dejesus Work Phone: [facility] Work Phone: 07-22-2021 08:20-0400 Body weight 68.[address] Ronny Dejesus Work Phone: [facility] Work Phone: Encounters Encounter Date Encounter Type Care Provider Facility Start: 08-16-2024 ambulatory Mirandarea Bucio Bermudez Fa cility:[facility] Start: 08-03-2024 End: 08-03-2024 ambulatory Miranda Bermudez Facility:[facility] Start: 06-12-2024 End: 06-12-2024 ambulatory Miranda Bermudez [employer] Work Phone: [facility] Work Phone: Start: 06-12-2024 End: 06-12-2024 Patient encounter procedure Miranda Bermudez [employer] -Cat Scan, [facility] Work Phone: Start: 06-12-2024 End: 06-12-2024 ambulatory Miranda Bucio Bermudez Facility:[facility] Start: 05-17-2024 End: 05-17-2024 ambulatory Miranda Bermudez [employer] Work Phone: [facility] Work Phone: Start: 05-17-2024 End: 05-17-2024 Patient encounter procedure Miranda Bermudez [employer] -Ultrasound, [facility] Work Phone: Start: 05-17-2024 End: 05-17-2024 ambulatory Miranda Rupinder Aidan Facility:[facility] Start: 05-02-2024 End: 05-02-2024 ambulatory MIRANDA BERMUDEZ [facility] Start: 10-21-2023 End: 10-21-2023 ambulatory MIRANDA MARIONMarcellus BERMUDEZ [facility] Start: 08-24-2023 End: 08-24-2023 ambulatory Ronny Dejesus Facility:[facility] Start: 07-22-2021 Non-patient / Non-visit Dr. Paz Work Phone: [facility] Start: 07-22-2021 End: 07-22-2021 Admission to same day surgery center Dr. Ronny Dejesus Work Phone: [facility] Start: 07-17-2021 End: 07-17-2021 Patient encounter procedure [facility] Start: 08-20-2017 Ambulatory Navneet Martin Facility:[facility] Procedures Date Procedure Procedure Detail Performing Clinician Start: 06-12-2024 CT of abdomen with contrast Miranda Bermudez [employer] Work Phone: Start: 05-17-2024 CT of abdomen Miranda granados [employer] Work Phone: Start: 07-22-2021 End: 07-22-[address] Ronny Dejesus Work Phone: Start: 07-22-[address] Ronny Dejesus Work Phone: Plan of Treatment Date Care Activity Detail Author Patient referral [facility] Work Phone: Payers Date Payer Category Payer Medicare [id number] 2023 Self-pay [id number] 2017 Private Health Insurance 2015 Medicare [id number] 1955 Unknown [id number] 1955 Unknown [id number] Medicare [id number] Unknown SELF PAY INSURANCE [id number] Unknown [id number] Unknown [id number] Unknown [id number] Unknown [id number] Unknown [id number] Social History Date Type Detail Facility Start: [facility]17-[facility]21 [facility] Work Phone: Start: 04-20-2016 Occasional [facility] Start: 04-20-2016 None [facility] Start: 04-20-2016 Alone [facility] Start: 02-01-2019 Cigarettes [facility] Start: 1955 Sex Assigned At Male [facility] Start: 07-24-2021 [facility] Start: 05-29-2024 End: 06-14-2024 Sex Male (finding) [facility] Medical Equipment Procedure Code Equipment Code Equipment Origin al Text Equipment Identifier Dates [employer] LEAVITT FDA Start: 11-17-2017 [employer]FRANCISES[employer] ROMAN [employer] FDA Start: 11-17-2017 [place] [place] [employer] FDA Start: 11-17-2017 [place] [place] [employer] FDA Start: 11-17-2017 [employer]FRANCISES[employer] LEAVITT FDA Start: 11-17-2017 [employer]FRANCISES[employer] LEAVITT FDA Start: 11-17-2017 [employer]FRANCISES[employer] LEAVITT FDA Start: 11-17-2017 [employer]FRANC[employer]ES[employer] [place]AN [employer] FDA Start: 11-17-2017 [employer]FRANCISES[employer] ROMAN [employer] FDA Start: 11-17-2017 [employer]FRANCISES[employer] LEAVITT FDA Start: 11-17-2017 PHOENIXHEMESAU LEAVITT FDA Start: 11-17-2017 [employer]FRANCISES[employer] ROMAN [employer] FDA Start: 11-17-2017 Mental Status Date Assessment Result Facility 07-22-2021 Cognitive function Voice/Name [facility] Work Phone: Radiology Diagnostic study note 06-13-2024 Note Date & Type Note Facility 06-13-2024 Radiology Diagnostic study note [facility] Imaging Services [address] [place] [address] Abdomen WITH IV Contrast MR#: [id number] Acct: [id number] Name: LETA PIMENTEL Rep #: [id number] : 1955 M 69 From: Kelly Pope MD PCP: AUTUMN Alvarez Status: REG CLI Study:Abdomen WITH IV Contrast Date of Exam: 06/12/24 Exam# [id number] Ordering Dr: Sa benjie Bermudez Johann [employer]Natasha PROCEDURE: ABDOMEN WITH IV CONTRAST 06/12/2024 REASON FOR EXAM: 69-year-old male, generalized upper/mid abdominal pain, history of prostate cancer status post prostatectomy and radiation therapy. TECHNIQUE: Abdomen CT with intravenous contrast. Coronal and Sagittal reconstruction serieswere provided. One or more dose reduction techniques were used (e.g., Automated exposure control, adjustment of the mA and/or kV according to patient size, use of iterative reconstruction technique. PATIENT PREPARATION: Per protocol ORAL CONTRAST TYPE: None. CONTRAST: Isovue 370 VOLUME: 100mL RADIATION DOSE SUMMARY: CTDlvol: 25 mGy DLP: 301 mGycm COMPARISON: CTA abdomen pelvis 04/25/2019. FINDINGS: Lung bases: Bibasilar atelectasis/scarring. The heart is normal in size. Liver: The liver is normal in size with scattered cysts and additional hypodensities. The major portal veins are patent. No biliary ductal dilation. Gallbladder: No radiopaque stones within the gallbladder. Spleen: Normal size. Pancreas: Unremarkable. Adrenals: Mild thickening of the bilateral adrenal glands without focal nodule. Kidneys: Punctate nonobstructing left lower pole renal calculus. No hydronephrosis. Bowel: The visualized bowel loops are normal in caliber. No upper abdominal ascites or free air. Lymph nodes: No suspicious lymphadenopathy. Vasculature: Severe mixed plaque of the aortoiliac vessels. Bones: Thoracolumbar spondylosis. No aggressive osseous lesions. CT/Abdomen WITH IV Contrast IMPRESSION: 1. No acute abdominopelvic finding. 2. Punctate nonobstructing left lower pole renal calculus. Reading Location: [facility] CC: AUTUMN Bermudez ~ Help Desk Intern: Signed [facility] Radiology Diagnostic study note 05-17-2024 Note Date & Type Note Facility 05-17-2024 Radiology Diagnostic study note [facility] Imaging Services [address] [place], [place] [address] Abdomen Complete MR#: [id number] Acct: [id number] Name: LETA PIMENTEL Rep #: [id number] : 1955 M 69 From: Dannie Cloud MD PCP: AUTUMN Alvarez Status: REG CLI Study:Abdomen Complete Date of Exam: 08/06 Exam# [id number] Ordering Dr: Sa Aidan [facility] Johann [employer]Natasha PROCEDURE: ABDOMEN COMPLETE REASON FOR EXAM: Generalized abdominal pain. COMPARISON: None. FINDINGS: Liver: Grossly normal size and echotexture. Multiple cysts are seen in both lobes of the liver. The largest cyst measures 2.3 cm x 2.1 cm x 1.8 cm. This is in the right lobe of the liver in the septated. Gallbladder: There is a 1.2 cm x 0.9 cm x 0.9 cm heterogeneous soft tissue mass at the fundal portion of the gallbladder with vascularity. A neoplastic process should be ruled out. A gallbladder polyp is seen measuring 2 mm x 2 mm x 3 mm. The gallbladder wall measures 8 mm. This is thickened. Common bile duct: Normal measuring it measures 5.2 mm.. Pancreas: Visualized portions are sonographically unremarkable. Kidneys: The right kidney measures 11.6 cm x 5.8 cm 4.1 cm.. The left kidney measures 11.9 cm 6.2 cm 5.5 cm. A 2 mm x 3 mm calculus is seen in the lower pole calyx of the left kidney. Renal parenchymal thicknesses and echotextures are preserved. No hydronephrosis. Spleen: Normal in size and echotexture measuring . Aorta: Visualized abdominal aorta is of normal size. IVC: Visualized inferior vena cava is unremarkable. Peritoneal Findings: No ascites identified. US/Abdomen Complete IMPRESSION: There is a 1.2 cm x 0.9 cm x 0.9 cm soft tissue density in the fundal portion ofthe gallbladder with vascularity. Correlation with a CT scan is recommended for further evaluation. Multiple small hepatic cysts. Nonobstructive calculus in the left kidney. Reading Location: [id number] CC: AUTUMN Bermudez ~ Help Desk Intern: Signed [facility] Evaluation note Note Date & Type Note Facility Evaluation note No assessment information availa ble [facility] Work Phone: Reason for referral (narrative) Note Date & Type Note Facility Reason for referral (narrative) No reason for referral information available [facility] Work Phone: Summary Purpose Family History No Family History Records Found Relationship Condition Age at Onset Recorded Date/T lenny father Malignant neoplasm of colon Unknown grandfather Malignant neoplasm of colon Unknown Advance Directives No Advanced Directives Records Found Advance Directive Response Recorded Date/ Time Advance Directives No April 20, 2016 12:10am Living Will No July 17, 2021 2: 37pm 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 No July 17, 2021 2:37pm Advance Directive Response Recorded Date/ Time Advance Directives No April 20, 2016 12:10am Chief Complaint and Reason for Visit Chief Complaint Admit Date HX OF DIVERTICULITIS/ RECENT STOMACH DOMINGO N May 17, 2024 9:55am Chief Complaint Admit Date HX OF DIVERTICULITIS/ RECENT STOMACH DOMINGO N May 17, 2024 9:55am ABD PAIN June 12, 2024 7:4 4am Additional Source Comments (unrecognized sect ion and content) No Status Records FoundNo Status Records FoundNo Status Records FoundNo Status Records Found INFORMATION SOURCE (unrecogn ized section and content) DATE CREATED AUTHOR 08/31/2017 [facility] DATE CREATED AUTHOR AUTHOR'S ORGANIZ ATION 03/13/2019 [facility] DATE CREATED AUTHOR AUTHOR'S ORGANIZ ATION 05/03/2024 [facility] DATE CREATED AUTHOR AUTHOR'S ORGANIZ ATION 08/16/2024 [facility] Goals (unrecognized section and content) Goals may be documented in a n alternate sectionGoals may be documented in an alternate sectionGoals may be documented in an alternate sectionGoals may be documented in an alternate section Care Teams (unrecognized sec tion and content) Team Status: Active Member Role Status Dates AUTUMN Hill Primary Care Provider Acti ve Team Status: Inactive Member Role Status Dates AUTUMN Hill Primary Care Provider Acti ve Start: May 17, 2024 End: May 17, 2024 AUTUMN Hill Attending Provider Active Start: May 17, 2024 End: May 17, 2024 AUTUM[facility] Hill Referring Provider Active Start: May 17, 2024 End: May 17, 2024 Team Status: Inactive Member Role Status Dates AUTUMN Hill Primary Care Provider Acti ve Start: June 12, 2024 End: June 12, 2024 AUTUM[facility] Hill Attending Provider Active Start: June 12, 2024 End: June 12, 2024 [facility]UMN Hill Referring Provider Active Start: June 12, 2024 End: June 12, 2024 Dr. Dave Almanza MD Other Provider Active Start: June 12, 2024 End: June 12, 2024 FOR RECORDS PERTAINING TO PATIENTS WHO ARE OR HAVE BEEN ENROLLED IN A CHEMICAL DEPENDENCY/SUBSTANCEABUSE PROGRAM, SOME INFORMATION MAY BE OMITTED. This clinical summary was aggregated from multiple sources. Caution should be exercised in using it in the provision of clinical care. This summary normalizes information from multiple sources, and as a consequence, information in this document may materially change the coding, format and clinical context of patient data. In addition, data may be omitted in some cases. CLINICAL DECISIONS SHOULD BE BASED ON THE PRIMARY CLINICAL RECORDS. [facility] [employer] [facility]. provides no warranty or guarantee of the accuracy or completeness of information in this document.
--- NOTE | 2024-08-16 06:57 | MRI_ITS ---
PROCEDURE: MRCP ABDOMEN WITHOUT CONTRAST, 08/16/2024 REASON FOR EXAM: GALLSTONES TECHNIQUE: Multiplanar multisequence MRI abdomen was performed without IV contrast. MRCP was performed including generation of MIP reconstructions and 3D reformats. COMPARISON: 06/12/2024. FINDINGS: Note that the exam was optimized for evaluation of the gallbladder and biliary tree rather than the remaining abdominal viscera. Note also that sensitivity is limited in the absence of IV contrast. Variable overall mild motion limitation. Liver: Scattered small T2 bright presumed cysts, incompletely characterized in the absence of IV contrast. Gallbladder: Unremarkable. No filling defect to suggest cholelithiasis. The 2 x 3 x 2 mm tiny suspected polyps seen on ultrasound may be too small for resolution or may not be visible in the absence of IV contrast. The additional 1.2 x 0.9 x 0.9 cm focal fundal questioned mass/wall fundal thickening is also clearly visualized but may correlate with minimal fundal wall thickening. Biliary tree: Mild dilatation of the CBD to 9 mm with transition at the ampulla. No definite filling defects to suggest. Pancreas 5 mm T2 bright presumed cystic structure along the pancreatic head.No ductal dilatation. Other: Mild thickening of the bilateral adrenals without discrete nodule favoring hyperplasia. Atherosclerosis. MRI/MRCP Abdomen without Contrast IMPRESSION: 1. No cholelithiasis or choledocholithiasis identified. Mild dilatation of the CBD with transition at the ampulla where no obstructing lesion is evident in the absence of IV contrast or routine MRI abdo men sequences. Findings could reflect mild ampullary stenosis or less likely an occult underlying ampullary lesion. Corre late with serum bilirubin. Findings would be optimally evaluated by ERCP, as indicated. 2. Previous 1.2 cm sonographic finding not well depicted by noncontrast MRI. T here is minimal suspected wall thickening in the gallbladder fundus which is nonspecific and incompletely evaluated in the absen ce of routine MRI abdomen sequences/IV contrast, but could reflect focal adenomyomatosis. This was better seen on CT probably d ue to the administration of IV contrast. In light of this and given that the finding was relatively convincing on ultrasound, rec ommend either follow-up ultrasound to ensure stability versus MRI with and without contrast for improved delineation of soft tissues. 3. 5 mm pancreatic lesion incompletely characterized in the absence of IV contr ast but likely to reflect a tiny cystic neoplasm such as IPMN. Recommend follow-up multiphase pancreatic protocol MRI abdomen w ith and without contrast and with MRCP in 2 years per ACR recommendations to evaluate stability. 4. Additional description as above. Reading Location: [id number]
== END | disposition home or self-care (01) ==
LOC: OPMRI 06:44
PROVIDERS: PCP Nurse Practitioner Family; Referring Provider Internal Medicine Gastroenterology; Visit Provider Internal Medicine Gastroenterology
DX: K80.20 Calculus of gallbladder without cholecystitis without obstruction (principal)
CPT/HCPCS: 74181

== ENCOUNTER 2024-08-25 13:08 | Day surgery (SDC) | payer MEDICARE, SELFPAY ==
--- NOTE | 2024-08-24 11:04 | PAT.ANE_ITS ---
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 When Was Last Pacemaker Check QUESTION #4 FULL TEXT: You/Your Family Experience fever (hyperthermia) with Anesthesia Last Oral Intake Last Oral intake: Last Oral Intake NPO since Meds taken in AM with sips of water? Meds patient instructed to take am of surgery PONV PONV - boring machine operator vertical: PONV - boring machine operator vertical Female No 08/24/24 08:31 HX of Motion Sickness No 08/24/24 08:31 HX of N/V After Surgery No 08/24/24 08:31 Non-Smoker Yes 08/24/24 08:31 Duration of Surgery greater No 08/24/24 08:31 than 60 minutes Number of Risk Factors 1 08/24/24 08:31 PONV Score Low Risk 08/24/24 08:31 Height & Weight Height & Weight: Anesthesia: Height & Weight Height 6 ft 07/22/21 08:20 Respiratory Assessment Respiratory Assessment - boring machine operator vertical: Respiratory Tract Infection Hx - 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 Has anyone observed you stop Yes 08/24/24 08:31 breathing during sleep? STOP Results Positive 08/24/24 08:31 QUESTION #5 FULL TEXT : Do you snore loudly (louder than talking or can be heard through closed doors)? 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 Specify any problems Hx of Preganancy in last 3 N/A 08/24/24 08:31 Months Nurse Filling Out Transfusion [email or web address] 08/24/24 08:31 & Questions: Date: 08/24/24 08/24/24 08:31 Time: 08:33 08/24/24 08:31 Patient unable to answer at this time (ie. 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 machine operator vertical: /Reproductive Hx- boring machine operator vertical Hx Now No 08/24/24 08:31 Gestational Age (in weeks): EDC: Hx Hx Para Hx Section SAB No 08/24/24 08:31 [facility] Medical History (Updated 08/24/24 @ 08:37 by Cj Crum) Wears dentures Marijuana use History of echocardiogram Cancer Hepatitis Back pain Injury of back Injury of head and neck Syncope TIA (transient ischemic attack) History of diverticulitis Gastric reflux Smoker History of stress test Hx of reduction of nasal fracture Prostate cancer Left arm pain Chest pain Arm paresthesia, left Stroke HTN (hypertension) RLS (restless legs syndrome) Home Medications ?Medication ?Instructions ?Recorded ?Last Taken ?Type oxybutynin chloride 10 mg 5 mg PO DAILY 08/03/24 Unkno wn History tablet,extended release 24 hr Allergy/AdvReac Type Severity Reaction Status Date / Time Penicillins Allergy PT UNSURE Verified 08/24/24 08:28 OF REACTION Family History Father Colon cancer Grandfather Colon cancer Surgical History History of cardiac catheterization Hx of colonoscopy S/P prostatectomy S/P cervical spinal fusion Social History (Updated 08/03/24 @ 15:05 by Marla Pérez) Smoking Status: Current every day smoker tobacco type: cigarettes alcohol intake: never substance use type: marijuana Audit: Pertinent Findings Pertinent Findings EKG Perinent findings: 11/11/2017. Sinus bradycardia 55 bpm left axis deviation. Incomplete right bundle branch block. Cannot rule out anteroseptal infarct, age undetermined. Heart catheterization pertinent findings: 04/20/2016. Angiography normal coronary arteries. Normal EF 65 to 75%. This was performed for atypical nonexertional substernal chest pain. Appears noncardiac in origin. Recommendation Anesthesia Recommendation Anesthesia recommendation: OPTIMIZED for anesthesia
[2024-08-25] VITALS (9 sets, daily range): BP systolic 146–170; BP diastolic 73–88; PULSE 55–72; RESP 16; TEMP 36.5–37.1; O2SAT 99–100; BMI 19.1
--- NOTE | 2024-08-25 13:23 | PCM.HP.STD ---
HPI - General General Date of Admission: 08/25/24 Date of Service: 08/25/24 HPI Narrative LETA PIMENTEL, is a 69 M who presents to the office today for initial consult. abd US 3.5.25 There is a 1.2 cm x 0.9 cm x 0.9 cm soft tissue density in the fundal portion of the gallbladder with vascularity. Correlation with a CT scan is recommended for further evaluation. Multiple small hepatic cysts. Nonobstructive calculus in the left kidney. abd CT 3..25 1. No acute abdominopelvic finding. 2. Punctate nonobstructing left lower pole renal calculus. *BGI established 5..25 pt reports that he has been having abdominal issues for the past 6 years since he had prostate surgery. Pt reports he had 34 rounds of radiation and that is the area where he is now having constant cramping and discomfort. Pt reports he was referred for abnormal findings on recent imaging. [facility] Medical History Wears dentures Marijuana use History of echocardiogram Cancer Hepatitis Back pain Injury of back Injury of head and neck Syncope TIA (transient ischemic attack) History of diverticulitis Gastric reflux Smoker History of stress test Hx of reduction of nasal fracture Prostate cancer Left arm pain Chest pain Arm paresthesia, left Stroke HTN (hypertension) RLS (restless legs syndrome) Home Medications ?Medication ?Instructions ?Recorded ?Last Taken ?Type oxybutynin chloride 10 mg 5 mg PO DAILY 08/03/24 Unknown History tablet,extended release 24 hr Allergy/AdvReac Type Severity Reaction Status Date / Time Penicillins Allergy PT UNSURE Verified 08/25/24 13:47 OF REACTION Family History Father Colon cancer Grandfather Colon cancer Surgical History History of cardiac catheterization Hx of colonoscopy S/P prostatectomy S/P cervical spinal fusion Social History Smoking Status: Current every day smoker tobacco type: cigarettes alcohol intake: never substance use type: marijuana ROS Constitutional Constitutional: Denies fatigue, fever(s), poor appetite, weight gain or weight loss Gastrointestinal Gastrointestinal: Denies belching, bloating, change in bowel habits, change in stool character, chewing difficulty, coffee ground emesis, constipation, cramping, diarrhea, dyspepsia, dysphagia, early satiety, excessive flatus, fecal incontinence, heartburn, hematemesis, hematochezia, hemorrhoids, loose stools, melena, nausea, odynophagia, rectal bleeding, tenesmus, vomiting or weight changes Physical Exam Const alert, oriented x3, no apparent distress and healthy appearing General Appearance: cooperative GI normal to inspection, nondistended, normoactive bowel sounds, soft to palpation, non-tender and non-distended Percussion: normal to percussion Rectal Exam: deferred Assessment & Plan Assessment/Plan (1) Abdominal pain: (2) History of colon polyps: PLAN: Assessment and Plan Assessment and Plan (1) Abdominal pain: Status: Acute (2) Abnormal finding on imaging: Status: Acute Plan: 69-year-old gentleman with history of prostate cancer Lashell score 7 status post prostatectomy and external beam radiation. He also has a history of diverticulitis and a history of adenomatous polyps. His last endoscopy was in 2021 and back [place] [address] Bryant Felix. He had been having abdominal pain and for evaluation and ultrasound was ordered by his primary care provider. He had an ultrasound of the right upper quadrant followed by CT scan abdomen pelvis: Ultrasound of the right upper quadrant FINDINGS: Liver: Grossly normal size and echotexture. Multiple cysts are seen in both lobes of the liver. The largest cyst measures 2.3 cm x 2.1 cm x 1.8 cm. This is in the right lobe of the liver in the septated. Gallbladder: There is a 1.2 cm x 0.9 cm x 0.9 cm heterogeneous soft tissue mass at the fundal portion of the gallbladder with vascularity. A neoplastic process should be ruled out. A gallbladder polyp is seen measuring 2 mm x 2 mm x 3 mm. The gallbladder wall measures 8 mm. This is thickened. Common bile duct: Normal measuring it measures 5.2 mm.. Pancreas: Visualized portions are sonographically unremarkable. Kidneys: The right kidney measures 11.6 cm x 5.8 cm 4.1 cm.. The left kidney measures 11.9 cm 6.2 cm 5.5 cm. A 2 mm x 3 mm calculus is seen in the lower pole calyx of the left kidney. Renal parenchymal thicknesses and echotextures are preserved. No hydronephrosis. Spleen: Normal in size and echotexture measuring . Aorta: Visualized abdominal aorta is of normal size. IVC: Visualized inferior vena cava is unremarkable. Peritoneal Findings: No ascites identified. US/Abdomen Complete IMPRESSION: There is a 1.2 cm x 0.9 cm x 0.9 cm soft tissue density in the fundal portion of the gallbladder with vascularity. Correlation with a CT scan is recommended for further evaluation. Multiple small hepatic cysts. Nonobstructive calculus in the left kidney. CT/Abdomen WITH IV Contrast IMPRESSION: 1. No acute abdominopelvic finding. 2. Punctate nonobstructing left lower pole renal calculus. Differential diagnosis could be hemangioma, neuroendocrine tumor, gallbladder polyp. We will get an MRI and MRCP to evaluate patient's hepatobiliary system. He does have mild stones in his gallbladder so I think he would be a candidate for cholecystectomy. He underwent MRCP and it did show possible 1.2 cm lesion. In the fundic region of the gallbladder. However his common bile duct was 5 mm and it went up to 9 mm and on his imaging you can also see the pancreatic duct dilated. Differential diagnosis would be ampullary lesion. ERCP suggested by radiology for further evaluation. Patient was explained alternative, risk and benefits including withstand bleeding, fracture, steps, perforation, need for charge and . He will have an ASA of 3.
--- NOTE | 2024-08-25 13:24 | PCM.PRE.AN2 ---
ASA Classification* ASA Classification ASA Classification: 3 Assessment & Plan Anesthesia* Anesthesia Assessment Anesthesia Assessment: Discussed sedation and/or anesthesia options, risks, benefits, and alternatives with patient/parents/legal guardian/POA. Questions invited. The patient/parents/legal guardian/POA seems to understand and agrees to proceed with anesthesia plan. Reviewed the physical assessment, medical history, allergy history and patient home medications list prior to surgery/procedure/anesthetic and documented any changes. Performed airway and anesthesia risk assessments. Anesthesia Type Anesthesia Type: MAC (GA bkup) Anesthesia Focused Assessment* Airway Assessment Mouth opens: >3 cm Mallampati Score: II Labs Anesthesia Preop lab: CBC WBC 4.8 K/mm3 (4.4-11.0) 05/30/18 14:37 05/30/18 RBC 4.62 M/mm3 (4.6-6.2) 05/30/18 14:37 05/30/18 Hgb 14.6 g/dl (13.0-16.5) 05/30/18 14:37 05/30/18 Hct 43.1 % (40-54) 05/30/18 14:37 05/30/18 Plt Count 281 K/mm3 (150-450) 05/30/18 14:37 05/30/18 CHEMISTRY Potassium 3.6 mmol/L (3.5-5.1) 08/16/18 14:33 08/16/18 Sodium 142 mmol/L (136-145) 08/16/18 14:33 08/16/18 BUN 19 mg/dL (7-18) H 08/16/18 14:33 08/16/18 Creatinine 0.70 mg/dL (0.70-1.30) 08/16/18 14:33 08/16/18 Glucose 84 mg/dL (74-106) 08/16/18 14:33 08/16/18 POC Glucose 93 mg/dL (70-110) 08/05/15 12:00 08/05/15 TSH 0.52 uIU/mL (0.358-3.74) 04/19/16 16:15 04/19/16 COAG PT 12.8 SECONDS (11.7-14.9) 04/19/16 20:20 04/19/16 Pre-Assessment Diagnosis/Proposed Procedure Planned Operative Procedure(s): ERCP Anesthesia History 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 When Was Last Pacemaker Check QUESTION #4 FULL TEXT: You/Your Family Experience fever (hyperthermia) with Anesthesia Last Oral Intake Last Oral intake: Last Oral Intake NPO since Meds taken in AM with sips of water? Meds patient instructed to take am of surgery PONV PONV - electronics technician apprentice: PONV - electronics technician apprentice Female No 08/24/24 08:31 HX of Motion Sickness No 08/24/24 08:31 HX of N/V After Surgery No 08/24/24 08:31 Non-Smoker Yes 08/24/24 08:31 Duration of Surgery greater No 08/24/24 08:31 than 60 minutes Number of Risk Factors 1 08/24/24 08:31 PONV Score Low Risk 08/24/24 08:31 Height & Weight Height & Weight: Anesthesia: Height & Weight Height 6 ft 07/22/21 08:20 Respiratory Assessment Respiratory Assessment - electronics technician apprentice: Respiratory Tract Infection Hx - electronics technician apprentice Hx Respiratory Tract Infection No 08/24/24 08:31 STOP Sleep Apnea STOP Sleep Apnea - electronics technician apprentice: STOP Sleep Apnea - electronics technician apprentice Hx Hypertension No 08/24/24 08:31 Hx Sleep Apnea No 08/24/24 08:31 CPAP BIPAP Do you snore loudly (louder Yes 08/24/24 08:31 than talking or can be heard Do you often feel tired/ No 08/24/24 08:31 fatigued/ sleepy during daytime? Has anyone observed you stop Yes 08/24/24 08:31 breathing during sleep? STOP Results Positive 08/24/24 08:31 QUESTION #5 FULL TEXT : Do you snore loudly (louder than talking or can be heard through closed doors)? 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 Specify any problems Hx of Preganancy in last 3 N/A 08/24/24 08:31 Months Nurse Filling Out Transfusion [email or web address] 08/24/24 08:31 & Questions: Date: 08/24/24 08/24/24 08:31 Time: 08:33 08/24/24 08:31 Patient unable to answer at this time (ie. confused, unrespo /Reproduction History /Reproductive History - electronics technician apprentice: /Reproductive Hx- electronics technician apprentice Hx Now No 08/24/24 08:31 Gestational Age (in weeks): EDC: Hx Hx Para Hx Section SAB No 08/24/24 08:31 Active Medications Active Medications: Current Medications Generic Name Dose Route Start Last Admin Trade Name Freq PRN Reason Stop Dose Admin Lactated Ringer's 1,000 mls @ 15 mls/hr 08/25/24 13:30 IV .Q48H BIRDIE PFSH Medical History Wears dentures Marijuana use History of echocardiogram Cancer Hepatitis Back pain Injury of back Injury of head and neck Syncope TIA (transient ischemic attack) History of diverticulitis Gastric reflux Smoker History of stress test Hx of reduction of nasal fracture Prostate cancer Left arm pain Chest pain Arm paresthesia, left Stroke HTN (hypertension) RLS (restless legs syndrome) Home Medications ?Medication ?Instructions ?Recorded ?Last Taken ?Type oxybutynin chloride 10 mg 5 mg PO DAILY 08/03/24 Unknown History tablet,extended release 24 hr Allergy/AdvReac Type Severity Reaction Status Date / Time Penicillins Allergy PT UNSURE Verified 08/24/24 08:28 OF REACTION Family History Father Colon cancer Grandfather Colon cancer Surgical History History of cardiac catheterization Hx of colonoscopy S/P prostatectomy S/P cervical spinal fusion Social History Smoking Status: Current every day smoker tobacco type: cigarettes alcohol intake: never substance use type: marijuana Review of Systems (Anesthesia) ROS Narrative System reviewed and no additional complaints, except as documented.
[2024-08-25] MEDS: Lactated Ringers 1,000 ML 15 ML IV (13:59)
--- NOTE | 2024-08-25 14:15 | FLU_PTH ---
PATIENT: LETA PIMENTEL LOC: EN U#:[id number] AGE/SX: 69/M ROOM: RE08/25/[address]: Dr. Harrison Lara DO : 1955 BED: DIS: 08/25/2024 SPEC #: [id number] RECD: 08/25/24 16:15 STATUS: TY CHARLES #: [id number] YAZMIN: 08/25/24 14:[address]: Harrison Lara DEPT: CYTOLOGY RECD BY: Duglas Hatch ENTERED: 08/28/24 08:41 SP TYPE: Fluid OTHR DR: Mary Bermudez, [employer] ROOM ATTENDANT-C Tissues: A - Biliary tract, NOS B - Biliary tract, NOS Procedures: Special Stain Group II Surgery Specimen Level IV Cytospin Fluid HEADER OPERATION: ERCP, balloon, brushings, stent PRE-OP DIAGNOSIS: Abdominal pain, abnormal finding on imaging TISSUE SUBMITTED: A- Biliary stricture brushings DIAGNOSIS CYTOLOGY A. Biliary stricture, brushing (cytospin, smear x3): * No malignant cells identified. CYTOLOGY STUDY Slides are reviewed. CYTOLOGY GROSS A. Received is 1 brush with 3 smears labeled with the patient's name and and designated per the requisition as Biliary stricture brush head/brushings. Submitted for cytology. 08/28/2024 CPT: 44373
--- NOTE | 2024-08-25 15:00 | RAD_ITS ---
PROCEDURE: ERCP BILIARY/PANCREAS 08/25/2024 REASON FOR EXAM: ERCP TECHNIQUE: ERCP BILIARY/PANCREAS COMPARISON: MRCP of 0 6 0 4 2024 FINDINGS: Initial images show several tiny filling defects are seen in the common hepatic duct. Question if these are air bubbles versus small blood clots versus choledocholithiasis. Next, there is cannulation of the common bile duct and injection of dye. Balloon extraction is performed. Biliary stent is placed. Total fluoroscopy time: 83.8 seconds. Cumulative dose: 14.80 mGy RAD/ERCP Biliary/Pancreas IMPRESSION: ERCP as stated above with balloon extraction and biliary stent placement. For full details, see the operative report. Reading Location: [facility]
--- NOTE | 2024-08-25 15:44 | OP.ERCP_ITS ---
Patient Name: Gigi Coronado Procedure Date: 08/25/2024 2:41 PM Date of : 1955 Age: 69 Procedure: ERCP Indications: Abnormal abdominal CT, Abnormal MRCP, Abnormal abdominal ultrasound, Biliary dilation on Ultrasound Providers: Harrison Lara DO Referring MD: Sergio Alvarez Medicines: Monitored Anesthesia Care Patient Profile: This is a 69 year old male. Refer to note in patient chart for documentation of history and physical. Patient has symptoms of acute right upper quadrant abdominal pain. This patient has no history of previous ERCP. This patient has no history of surgical alteration of the upper digestive tract anatomy. Previously obtained MRI showed a dilation in the biliary tree, a dilation in the pancreas and a periampullary dilation. Complications: No immediate complications. Procedure: Pre-Anesthesia Assessment: - Prior to the procedure, a History and Physical was performed, and patient medications and allergies were reviewed. The patient is competent. The risks and benefits of the procedure and the sedation options and risks were discussed with the patient. All questions were answered and informed consent was obtained. Patient identification and proposed procedure were verified by the physician in the pre-procedure area. Mental Status Examination: alert and oriented. Airway Examination: normal oropharyngeal airway and neck mobility. Respiratory Examination: clear to auscultation. CV Examination: normal. Prophylactic Antibiotics: The patient does not require prophylactic antibiotics. Prior Anticoagulants: The patient has taken no anticoagulant or antiplatelet agents except for NSAID medication. ASA Grade Assessment: II - A patient with mild systemic disease. After reviewing the risks and benefits, the patient was deemed in satisfactory condition to undergo the procedure. The anesthesia plan was to use monitored anesthesia care (MAC). Immediately prior to administration of medications, the patient was re-assessed for adequacy to receive sedatives. The heart rate, respiratory rate, oxygen saturations, blood pressure, adequacy of pulmonary ventilation, and response to care were monitored throughout the procedure. The physical status of the patient was re-assessed after the procedure. After obtaining informed consent, the scope was passed under direct vision. Throughout the procedure, the patient's blood pressure, pulse, and oxygen saturations were monitored continuously. The Duodenoscope was introduced through the mouth, and advanced to the duodenum and used to inject contrast into the bile duct. The ERCP was accomplished without difficulty. The patient tolerated the procedure well. Scope In: 3:10:37 PM Scope Out: 3:33:02 PM Total Procedure Duration Time 0 hours 22 minutes 25 seconds Findings: The director sterile processing film was normal. The esophagus was successfully intubated under direct vision. The scope was advanced to a normal major papilla in the descending duodenum without detailed examination of the pharynx, larynx and associated structures, and upper GI tract. The upper GI tract was grossly normal. The bile duct was deeply cannulated with the short-nosed traction sphincterotome. Contrast was injected. I personally interpreted the bile duct images. Ductal flow of contrast was adequate. Image quality was adequate. Contrast extended to the entire biliary tree. The lower third of the main bile duct contained filling defect(s) thought to be a stone and sludge. The biliary orifice was stenotic. This appeared benign. Opacification of the entire opacified area and entire biliary tree was successful. The maximum diameter of the ducts was 10 mm. The lower third of the main bile duct contained one stone, which was 6 mm in diameter. The entire opacified area was moderately dilated and diffusely dilated, secondary to a stricture. The largest diameter was 10 mm. A long 0.025 inch Jagwire was passed into the biliary tree. A 5 mm biliary sphincterotomy was made with a monofilament traction (standard) sphincterotome using ERBE electrocautery. There was no post-sphincterotomy bleeding. The biliary tree was swept with a 12 mm balloon starting at the bifurcation, left intrahepatic duct(s), left main hepatic duct, right intrahepatic duct(s) and right main hepatic duct. Sludge was swept from the duct. All stones were removed. The bile duct was deeply cannulated with the short-nosed traction sphincterotome. Contrast was injected. The lower third of the main bile duct contained a single localized stenosis 6 mm in length. Placement of a long 0.021 inch Jagwire into the biliary tree was attempted. This passed successfully. Cells for cytology were obtained by brushing in the lower third of the main bile duct. Impression: - Biliary papillary stenosis, benign. - A filling defect consistent with a stone and sludge was seen on the cholangiogram. - A single localized biliary stricture was found in the lower third of the main bile duct. The stricture was benign appearing. - The biliary system were moderately dilated, secondary to a stricture. - Choledocholithiasis was found. Complete removal was accomplished by biliary sphincterotomy and balloon extraction. - A biliary sphincterotomy was performed. - The biliary tree was swept. - Cells for cytology obtained in the lower third of the main duct. Procedure Code(s): --- Professional --- 15051, Endoscopic retrograde cholangiopancreatography (ERCP); with removal of calculi/debris from biliary/pancreatic duct(s) 93330, Endoscopic retrograde cholangiopancreatography (ERCP); with sphincterotomy/papillotomy 82284, 26, Endoscopic catheterization of the biliary ductal system, radiological supervision and interpretation CPT copyright 2021 [employer] [place] [employer]. All rights reserved. The codes documented in this report are preliminary and upon animal nutritionist review may be revised to meet current compliance requirements. Harrison Lara DO 08/25/2024 3:43:52 PM This report has been signed electronically. Number of Addenda: 0 Note Initiated On: 08/25/2024 2:41 PM
--- NOTE | 2024-08-25 15:44 | OP.CCLET_ITS ---
08/25/2024 Sergio Alvarez Re : ERCP procedure for Gigi Bermudez This procedure was performed on Sunday, August 25, 2024. My impressions and recommendations are as follows: Impressions : - Biliary papillary stenosis, benign. - A filling defect consistent with a stone and sludge was seen on the cholangiogram. - A single localized biliary stricture was found in the lower third of the main bile duct. The stricture was benign appearing. - The biliary system were moderately dilated, secondary to a stricture. - Choledocholithiasis was found. Complete removal was accomplished by biliary sphincterotomy and balloon extraction. - A biliary sphincterotomy was performed. - The biliary tree was swept. - Cells for cytology obtained in the lower third of the main duct. Recommendations : My findings are described in the full procedure note, which is enclosed. If I can be of further assistance, please feel free to contact me at . Sincerely, Harrison Lara, 08/25/2024 3:43:52 PM This report has been signed electronically.
--- NOTE | 2024-08-25 16:06 | PCM.POST.ANE ---
Anesthesia: Postop Eval I Current Vital Signs Temperature: 98.8 F Pulse Rate: 69 Blood Pressure: 170/88 Respiratory Rate: 16 Pulse Ox: 99 Oxygen Delivery Method: Room Air Assessment Airway patent: Yes Spontaneous unlabored respirations: Yes nausea: No Vomiting: No Anesthesia Complication: No Fluid Hydration Crystalloid volume administer (ml): 200 Total IV fluid infused: 200 Progress Note Anesthesia document: Postop Eval 1 completed: Yes
--- NOTE | 2024-08-25 16:47 | PCM.POSTANE2 ---
Anesthesia Postop Eval I Sum Postop Eval Completion status Anesthesia document: Postop Eval 1 completed: Yes Anesthesia Postop Eval I Summary Anesthesia Postop Eval I Summary: Anesthesia Postop Eval I: Assessment Summary Airway patent Yes 08/25/24 16:07 Spontaneous unlabored Yes 08/25/24 16:07 respirations Mental status nausea No 08/25/24 16:07 Vomiting No 08/25/24 16:07 Anesthesia Postop Eval I: Fluid Summary Crystalloid volume administer 200 08/25/24 16:07 (ml) Colloids volume administered ( ml) Blood Product volume administered (ml) Total IV fluid infused 200 08/25/24 16:07 Anesthesia Postop Eval I: Summary Notes Anesthesia Complication No 08/25/24 16:07 Anesthesia Complication Comment: Post-operative progress note Anesthesia: Postop Eval II Evaluation Mental status: Awake Pain Level: 0 nausea: Yes Vomiting: No
[2024-08-25] MEDS: ALPRAZolam 0.5 MG Tablet 1 MG PO (17:07)
== END 2024-08-25 17:23 | disposition home or self-care (01) ==
LOC: EN 13:08 → AC 13:10
PROVIDERS: PCP Nurse Practitioner Family; Referring Provider Nurse Practitioner Family; Visit Provider Internal Medicine Gastroenterology
PROC: (CPT 43260; principal; 2024-08-25 13:55)
DX: K80.51 Calculus of bile duct without cholangitis or cholecystitis with obstruction (principal); S12.300A Unspecified displaced fracture of fourth cervical vertebra, initial encounter for closed fracture; X58.XXXA Exposure to other specified factors, initial encounter; F17.210 Nicotine dependence, cigarettes, uncomplicated; Z87.19 Personal history of other diseases of the digestive system; Z86.0101 Personal history of adenomatous and serrated colon polyps
CPT/HCPCS: 43274; 43264; 74330; 76000; 88108; 88305; 88313; 93005; C2625; J2405

== ENCOUNTER 2024-08-26 14:48 | Inpatient (IN) | payer MEDICARE, SELFPAY ==
[2024-08-26] VITALS (8 sets, daily range): BP systolic 152–177; BP diastolic 77–107; PULSE 66–96; RESP 14–22; TEMP 36.6–36.8; O2SAT 97–100; BMI 19.0
[2024-08-26 15:05] LABS: Absolute Lymphocyte Count 1.42 X10^3/uL (0.83-4.51); Absolute Neutrophil Count 4.4 X10^3/uL (2.0-7.7); Basophil# 0.05 X10^3/uL; Basophil% 0.5 % (0-1); Eosinophils% 36.3 % (0-5); Hematocrit 44.8 % (40-54); Hemoglobin 15.5 g/dL (13.0-16.5); Lymphocyte # 1.42 X10^3/ul (0.83-4.51); Lymphocyte % 13.9 % (19-41); Mean Corp Hgb Conc 34.6 g/dL (32-36); Mean Corpuscular Hgb 31.6 pg (27.0-32.0); Mean Corpuscular Volume 91.4 fL (80-94); Mean Platelet Vol. 10.2 fl (6.2-12.0); Monocyte# 0.65 X10^3/uL; Monocyte% 6.4 % (0-10); NRBC Flagged by Analyzer 0 % (0-5); Neutrophil # 4.36 X10^3/uL (2.7-7.7); Neutrophil % 42.7 % (47-70); POSITIVE DIFFERENTIAL YES; POSITIVE MORPHOLOGY YES; Platelet Count 257 K/mm3 (150-450); RBC Distribution Width CV 13.5 % (11.6-14.6); White Blood Count 10.2 K/mm3 (4.4-11.0)
[2024-08-26 15:35] LABS: ALB/GLOB Ratio 1.7 RATIO (0.9-2.4); AST(SGOT) 18 U/L (<=37); Alanine Aminotransfer ALT/SGPT 12 U/L (<=46); Albumin, Serum 4.4 g/dL (3.4-4.8); Alkaline Phosphatase 93 U/L (40-129); Anion Gap 14 (5-15); BUN 15 mg/dL (4-19); BUN/Creat Ratio 17.6 RATIO (10-20); Calcium,Total 9.3 mg/dL (7.6-11.0); Carbon Dioxide 20.7 mmol/L (21.0-32.0); Chloride 101 mmol/L (98-108); Creatinine, Serum 0.83 mg/dL (0.70-1.20); EST Glomerular Filtration Rate 95 (>60); Estimated Creatinine Clearance 76.67 ml/min (50-250); Globulin 2.6 g/dL (2.2-4.2); Glucose 119 mg/dL (70-99); Protein, Total 6.9 g/dL (5.9-8.4); Sodium Level 136 mmol/L (133-145); Total Bilirubin 0.71 mg/dL (0.00-1.30)
[2024-08-26 15:46] LABS: Differential Indicated SCAN CRITERIA MET
[2024-08-26 15:47] LABS: Lipase 429 U/L (13-75)
[2024-08-26 15:48] LABS: Platelet Estimate A (ADEQ); Red Cell Morphology NORM C+C NORMAL (NORM C&C)
--- OUTSIDE RECORDS SUMMARY | 2024-08-26 17:29 | XMS RPT_ITS | CCD ---
Author Organization [facility] [place] Care Team Providers Care Mail Sorter And Delivery Name Role Phone Martin, Navneet Teran Unavailable Unavailable Abrahan Day Unavailable Unavailable Dr. Ronny Dejesus Primary Care Provider Dr. Bryant Felix Attending Provider AIDAN, MIRANDA APERTURE MASK ETCHER Admitting Unavailable BERMUDEZ, MIRANDA APERTURE MASK ETCHER Attending Unavailable BERMUDEZ, MIRANDA APERTURE MASK ETCHER Primary Care Unavailable BERMUDEZ, MIRANDA APERTURE MASK ETCHER Attending Unavailable BERMUDEZ, MIRANDA APERTURE MASK ETCHER Primary Care Unavailable BERMUDEZ, MIRANDA APERTURE MASK ETCHER Admitting Unavailable Bermudez PRODUCT TRAINER-C, Miranda Bucio Primary Care Provider Aidan PRODUCT TRAINER-C, Miranda Bucio Attending Provider [phone] Aidan PRODUCT TRAINER-C, Miranda Bucio Referring Provider [phone] Archie DEGROOT, Dr. Dave Lemons Other Provider Dr. Harrison Lara DO Attending Provider Friend Dr. Harrison GA Referring Provider Bermudez, Miranda Primary Care Unavailable Friend, Harrison Attending Unavailable Bermudez, Miranda Referring Unavailable Bermudez, Miranda Primary Care Unavailable Friend, Harrison Consulting Unavailable Friend, Harrison Attending Unavailable Bermudez, Miranda Referring Unavailable Bermudez, Miranda Primary Care Unavailable Friend, Harrison Attending Unavailable Bermudez, Miranda Referring Unavailable Dave Almanza Consulting Unavailable Bermudez, Miranda Primary Care Unavailable Bermudez, Miranda Attending Unavailable Bermudez, Miranda Referring Unavailable Bermudez, Miranda Primary Care Unavailable Friend, Harrison Attending Unavailable Friend, Harrison Referring Unavailable Bermudez, Miranda Primary Care Unavailable Bermudez, Miranda Attending Unavailable Bermudez, Miranda Referring Unavailable Friend Dr. Harrison GA Other Provider [phone] Allergies Allergy Classification Reported Allergen(s) Allergy Type Date of Onset Reaction(s) Facility (7 sources) Penicillins; Translations: [Penicillins] Allergy to substance 2 PT UNSURE OF REACTION [facility] Medications Current Medications Medication Drug Class(es) Dates Sig (Normalized) Sig (Original) 24 hr oxybutynin chloride 10 mg extended release oral tablet (8 sources) Cholinergic Muscarinic Antagonist Start: 07-17-2021 End: 08-03-2024 take 1 tablet by mouth once daily Oxybutynin Chloride 10 mg tablet extended release 24hr Active 5 mg PO DAILY August 03, 2024 3:05pm Completed/Discontinued Medications Medication Drug Class(es) Dates Sig (Normalized) Sig (Original) acetaminophen 325 mg / HYDROcodone bitartrate 5 mg oral tablet (6 sources) Opioid Agonist Start: 11-17-2017 End: 01-23-2019 Hydrocodone-Acetami nophen 1 EACH tablet Discontinued 1 NMA PO EVERY 4 HOURS NEEDED as needed for Pain 14 November 17, 2017 7:48am January 23, 2019 9:57am Start: 11-17-2017 End: 01-23-2019 Hydrocodone-Acetaminophen Di scontinued 1 EACH PO EVERY 4 HOURS NEEDED 14 November 17, 2017 7:48am January 23, 2019 9:57am aspirin 81 mg chewable tablet (6 sources) Platelet Aggregation Inhibitor, Nonsteroidal Anti-inflammatory Drug Start: 04-20-2016 End: 08-02-2017 take 1 tablet by mouth once daily Aspirin 81 MG tablet,chewable Discontinued 81 mg PO DAILY@0800 April 20, 2016 1:00am August 02, 2017 11:11am atorvastatin 10 mg oral tablet (6 sources) HMG-CoA Reductase Inhibitor Start: 01-23-2019 End: 08-03-2024 take 1 tablet by mouth at bedtime Atorvastatin 10 mg tablet Discontinued 10 mg PO AT BEDTIME January 23, 2019 1:00am August 03, 2024 3:06pm ciprofloxacin 500 mg oral tablet (6 sources) Quinolone Antimicrobial Start: 11-17-2017 End: 01-23-2019 take 1 tablet by mouth twice daily Ciprofloxacin Hcl 500 MG tablet Discontinued 500 mg PO TWICE A DAY November 17, 2017 12:00am January 23, 2019 9:57am docusate sodium 100 mg oral capsule (6 sources) Start: 11-17-2017 End: 01-23-2019 take 1 capsule by mouth twice daily Docusate Sodium 100 MG capsule Discontinued 100 mg PO TWICE A DAY November 17, 2017 12:00am January 23, 2019 9:57am Problems Problem Classification Problem Date Documented Date Episodic/Chronic Abdominal pain (7 sources) Abdominal pain; Translations: [Unspecified abdominal pain] Onset: 05-29-2024 08-03-2024 Episodic Biliary tract disease (2 sources) Calculus of gallbladder without cholecystitis without obstruction; Translations: [Other specified diseases of gallbladder] Onset: 06-14-2024 Episodic Cancer of prostate (6 sources) Malignant tumor of prostate; Translations: [Malignant neoplasm of prostate] 11-17-2017 Chronic Diabetes mellitus without complication (1 source) Other abnormal glucose; Translations: [Other abnormal glucose] Onset: 05-02-2024 Episodic Disorders of lipid metabolism (1 source) Hyperlipidemia, unspecified; Translations: [Hyperlipidemia, unspecified] Onset: 05-02-2024 Chronic Nonspecific chest pain (6 sources) Chest pain; Translations: [Chest pain, unspecified] 08-02-2017 Episodic Other and unspecified benign neoplasm (5 sources) History of polyp of colon; Translations: [History of colonic polyps] 07-24-2021 Episodic Other and unspecified benign neoplasm (1 source) Personal history of colonic polyps; Translations: [Personal history of colon polyps] Onset: 08-25-2024 Episodic Other connective tissue disease (6 sources) Pain in left arm; Translations: [Pain in left arm] 08-02-2017 Episodic Other hereditary and degenerative nervous system conditions (6 sources) Restless legs; Translations: [Restless legs syndrome] 08-02-2017 Chronic Other nervous system disorders (6 sources) Paresthesia of left upper limb; Translations: [Paresthesia of skin] 08-02-2017 Episodic Other screening for suspected conditions (not mental disorders or infectious disease) (4 sources) Imaging result abnormal; Translations: [Abnormal findings on diagnostic imaging of other specified body structures] 08-03-2024 Chronic Other screening for suspected conditions (not mental disorders or infectious disease) (9 sources) Patient encounter status; Translations: [Encounter for screening for malignant neoplasm of colon] Onset: 10-21-2023 06-19-2021 Episodic Peripheral and visceral atherosclerosis (1 source) Atherosclerosis of aorta; Translations: [Atherosclerosis of aorta] Onset: 05-02-2024 Chronic Substance-related disorders (1 source) Nicotine dependence, unspecified, uncomplicated; Translations: [Nicotine dependence, unspecified, uncomplicated] Onset: 05-02-2024 Chronic Results Test Name Value Interpretation Reference Range Facility ERCP Reporton 08-25-2024 ERCP Report [facility] Medical Records Department [address] [place] [address] ERCP Report MR#: [id number] Acct: [id number] Name: LETA CORONADO Rep #: [id number] : 1955 69 From: Harrison Lara DO PCP: SERGIO Alvarez [place] [facility] [place] Name: Leta Coronado Procedure Date: 08/25/2024 2:41 PM Date of : 1955 Age: 69 Procedure: ERCP Indications: Abnormal abdominal CT, Abnormal MRCP, Abnormal abdominal ultrasound, Biliary dilation on Ultrasound Providers: Harrison Lara DO Referring MD: Sergio Alvarez Medicines: Monitored Anesthesia Care Patient Profile: This is a 69 year old male. Refer to note in patient chart for documentation of history and physical. Patient has symptoms of acute right upper quadrant abdominal pain. This patient has no history of previous ERCP. This patient has no history of surgical alteration of the upper digestive tract anatomy. Previously obtained MRI showed a dilation in the biliary tree, a dilation in the pancreas and a periampullary dilation. Complications: No immediate complications. Procedure: Pre-Anesthesia Assessment: - Prior to the procedure, a History and Physical was performed, and patient medications and allergies were reviewed. The patient is competent. The risks and benefits of the procedure and the sedation options and risks were discussed with the patient. All questions were answered and informed consent was obtained. Patient identification and proposed procedure were verified by the physician in the pre-procedure area. Mental Status Examination: alert and oriented. Airway Examination: normal oropharyngeal airway and neck mobility. Respiratory Examination: clear to auscultation. CV Examination: normal. Prophylactic Antibiotics: The patient does not require prophylactic antibiotics. Prior Anticoagulants: The patient has taken no anticoagulant or antiplatelet agents except for NSAID medication. ASA Grade Assessment: II - A patient with mild systemic disease. After reviewing the risks and benefits, the patient was deemed in satisfactory condition to undergo the procedure. The anesthesia plan was to use monitored anesthesia care (MAC). Immediately prior to administration of medications, the patient was re-assessed for adequacy to receive sedatives. The heart rate, respiratory rate, oxygen saturations, blood pressure, adequacy of pulmonary ventilation, and response to care were monitored throughout the procedure. The physical status of the patient was re-assessed after the procedure. After obtaining informed consent, the scope was passed under direct vision. Throughout the procedure, the patient's blood pressure, pulse, and oxygen saturations were monitored continuously. The Duodenoscope was introduced through the mouth, and advanced to the duodenum and used to inject contrast into the bile duct. The ERCP was accomplished without difficulty. The patient tolerated the procedure well. Scope In: 3:10:37 PM Scope Out: 3:33:02 PM Total Procedure Duration Time 0 hours 22 minutes 25 seconds Findings: The stitcher feeder film was normal. The esophagus was successfully intubated under direct vision. The scope was advanced to a normal major papilla in the descending duodenum without detailed examination of the pharynx, larynx and associated structures, and upper GI tract. The upper GI tract was grossly normal. The bile duct was deeply cannulated with the short-nosed traction sphincterotome. Contrast was injected. I personally interpreted the bile duct images. Ductal flow of contrast was adequate. Image quality was adequate. Contrast extended to the entire biliary tree. The lower third of the main bile duct contained filling defect(s) thought to be a stone and sludge. The biliary orifice was stenotic. This appeared benign. Opacification of the entire opacified area and entire biliary tree was successful. The maximum diameter of the ducts was 10 mm. The lower third of the main bile duct contained one stone, which was 6 mm in diameter. The entire opacified area was moderately dilated and diffusely dilated, secondary to a stricture. The largest diameter was 10 mm. A long 0.025 inch Jagwire was passed into the biliary tree. A 5 mm biliary sphincterotomy was made with a monofilament traction (standard) sphincterotome using ERBE electrocautery. There was no post-sphincterotomy bleeding. The biliary tree was swept with a 12 mm balloon starting at the bifurcation, left intrahepatic duct(s), left main hepatic duct, right intrahepatic duct(s) and right main hepatic duct. Sludge was swept from the duct. All stones were removed. The bile duct was deeply cannulated with the short-nosed traction sphincterotome. Contrast was injected. The lower third of the main bile duct contained a single localized stenosis 6 mm (more content not included)... Normal [facility] MR/PAT.FLOWERon 08-24-2024 MR/PAT.ANE [facility] Medical Records Department [address] [place] [address] PAT - Anesthesia 08/24/24 1104 MR#: [id number] Acct: [id number] Name: LETA CORONADO Rep #: [id number] : 1955 69 From: Storm Samson MD PCP: SERGIO Alvarez [place] [facility] [place] Race: C Location: EN Pre-Assessment Diagnosis/Proposed Procedure Planned Operative Procedure(s): ERCP Anesthesia History Anesthesia History - germ drier: Anesthesia History - germ drier Hx Hospitalization No 08/24/24 08:31 Any Problems With Anesthesia No 08/24/24 08:31 Cholinesterase deficiency No 08/24/24 08:31 You/Your Family Experience No 08/24/24 08:31 fever (hyperthermia) with Relationship Recent Exposure to Contagious No 07/24/21 11:14 Disease Does patient have nerve No 08/24/24 08:31 stimulator Patient instructed to have device shut off --Does patient have Pacemaker or ICD? When Was Last Pacemaker Check QUESTION #4 FULL TEXT: You/Your Family Experience fever (hyperthermia) with Anesthesia Last Oral Intake Last Oral intake: Last Oral Intake NPO since Meds taken in AM with sips of water? Meds patient instructed to take am of surgery PONV PONV - germ drier: PONV - germ drier Female No 08/24/24 08:31 HX of Motion Sickness No 08/24/24 08:31 HX of N/V After Surgery No 08/24/24 08:31 Non-Smoker Yes 08/24/24 08:31 Duration of Surgery greater No 08/24/24 08:31 than 60 minutes Number of Risk Factors 1 08/24/24 08:31 PONV Score Low Risk 08/24/24 08:31 Height Weight Height Weight: Anesthesia: Height Weight Height 6 ft 07/22/21 08:20 Respiratory Assessment Respiratory Assessment - germ drier: Respiratory Tract Infection Hx - germ drier Hx Respiratory Tract Infection No 08/24/24 08:31 STOP Sleep Apnea STOP Sleep Apnea - germ drier: STOP Sleep Apnea - germ drier Hx Hypertension No 08/24/24 08:31 Hx Sleep Apnea No 08/24/24 08:31 CPAP BIPAP Do you snore loudly (louder Yes 08/24/24 08:31 than talking or can be heard Do you often feel tired/ No 08/24/24 08:31 fatigued/ sleepy during daytime? Has anyone observed you stop Yes 08/24/24 08:31 breathing during sleep? STOP Results Positive 08/24/24 08:31 QUESTION #5 FULL TEXT : Do you snore loudly (louder than talking or can be heard through closed doors)? Tobacco Use History Tobacco Use History - germ drier: Tobacco Use History - germ drier Tobacco Use Smoking Status Current every day smoker 08/24/24 08:31 Hx Tobacco Use Yes: 1 ppd 08/24/24 08:31 Years Smoking Packs Smoked per Day Smoking Cessation Date was within the last 15 years Hx Smoking Cessation Date Hx Smoking Cessation No 08/24/24 08:31 Counseling Hematologic Medial History Hematologic Hx - germ drier: Hematologic Medical Hx - roller maker Hx of Blood Transfusion No 08/24/24 08:31 Hx of Transfusion in last 3 No 08/24/24 08:31 Months Date of Last Transfusion (if within last 3 months) Ever experience any problems No 08/24/24 08:31 with transfusion(s)? Specify any problems Hx of Preganancy in last 3 N/A 08/24/24 08:31 Months Nurse Filling Out Transfusion [email or web address] 08/24/24 08:31 Questions: Date: 08/24/24 08/24/24 08:31 Time: 08:33 08/24/24 08:31 Patient unable to answer at this time (ie. confused, unrespo /Reproduction History /Reproductive History - germ drier: /Reproductive Hx- germ drier Hx Now No 08/24/24 08:31 Gestational Age (in weeks): EDC: Hx Hx Para Hx Section SAB No 08/24/24 08:31 PFSH Medical History (Updated 08/24/24 @ 08:37 by Cj Crum) Wears dentures Marijuana use History of echocardiogram Cancer Hepatitis Back pain Injury of back Injury of head and neck Syncope TIA (transient ischemic attack) History of diverticulitis Gastric reflux Smoker History of stress test Hx of reduction of nasal fracture Prostate cancer Left arm pain Chest pain Arm paresthesia, left Stroke HTN (hypertension) RLS (restless legs syndrome) Home Medications ???Medication ???Instructions ???Recorded ???Last Taken ???Type oxybutynin chloride 10 mg 5 mg PO DAILY 08/03/24 Unknown His tory tablet,extended release 24 hr Allergy/AdvReac Type Severity Reaction Status Date / Time Penicillins Allergy PT UNSURE Verified 08/24/24 08:28 OF REACTION Family History Father Colon cancer Grandfather Colon cancer Surgical History (Reviewed 08/24/24 @ 08 (more content not included)... Normal [facility] Magnetic resonance imaging r eportOrdered By: Clark Ashby on 08-17-2024 Study report [facility] Imaging Services [address], [place] [address] MRCP Abdomen without Contrast MR#: [id number] Acct: [id number] Name: LETA CORONADO Rep #: [id number] : 1955 M 69 From: Yasemin Ashby MD PCP: SERGIO Alvarez Status: REG CLI Study:MRCP Abdomen without Contrast Date of E xam: 08/16/24 Exam# [id number] Ordering Dr: Kenrick Lara DO PROCEDURE: MRCP ABDOMEN WITHOUT CONTRAST, 08/16/2024 REASON FOR EXAM: GALLSTONES TECHNIQUE: Multiplanar multisequence MRI abdomen was performed without IV contrast. MRCP was performed including generation of MIP reconstructions and 3D reformats. COMPARISON: 06/12/2024. FINDINGS: Note that the exam was optimized for evaluation of the gallbladder and biliary tree rather than the remaining abdominal viscera. Note also that sensitivity is limited in the absence of IV contrast. Variable overall mild motion limitation. Liver: Scattered small T2 bright presumed cysts, incompletely characterized in the absence of IV contrast. Gallbladder: Unremarkable. No filling defect to suggest cholelithiasis. The 2 x 3 x 2 mm tiny suspected polyps seen on ultrasound may be too small for resolution or may not be visible in the absence of IV contrast. The additional 1.2 x 0.9 x 0.9 cm focal fundal questioned mass/wall fundal thickening is also clearly visualized but may correlate with minimal fundal wall thickening. Biliary tree: Mild dilatation of the CBD to 9 mm with transition at the ampulla. No definite filling defects to suggest. Pancreas 5 mm T2 bright presumed cystic structure along the pancreatic head.No ductal dilatation. Other: Mild thickening of the bilateral adrenals without discrete nodule favoring hyperplasia. Atherosclerosis. MRI/MRCP Abdomen without Contrast IMPRESSION: 1. No cholelithiasis or choledocholithiasis identified. Mild dilatation of the CBD with transition at the ampulla where no obstructing lesion is evident in the absence of IV contrast or routine MRI abdomen sequences. Findings could reflect mild ampullary stenosis or less likely an occult underlying ampullary lesion. Correlate with serum bilirubin. Findings would be optimally evaluated by ERCP, as indicated. 2. Previous 1.2 cm sonographic finding not well depicted by noncontrast MRI. There is minimal suspected wall thickening in the gallbladder fundus which is nonspecific and incompletely evaluated in the absence of routine MRI abdomen sequences/IV contrast, but could reflect focal adenomyomatosis. This was better seen on CT probably due to the administration of IV contrast. In light of this and given that the finding was relatively convincing on ultrasound, recommend either follow-up ultrasound to ensure stability versus MRI with and without contrast for improved delineation of soft tissues. 3. 5 mm pancreatic lesion incompletely characterized in the absence of IV contrast but likely to reflect a tiny cystic neoplasm such as IPMN. Recommend follow-up multiphase pancreatic protocol MRI abdomen with and without contrast and with MRCP in 2 years per ACR recommendations to evaluate stability. 4. Additional description as above. Reading Location: [id number] CC: SERGIO Bermudez; Harrison Friend, DO ~ High Density Finishing Operator: Signed [facility] MRCP Abdomen without Contras ton 08-16-2024 MRCP Abdomen without Contrast [facility] Imaging Services [facility] [address] [place], [place] [id number] MRCP Abdomen without Contrast MR#: [id number] Acct: [id number] Name: LETA CORONADO Rep #: [id number] : 1955 M 69 From: Clark Ashby MD PCP: Miranda Bermudez, SILVERIO-C Status: REG CLI Study: MRCP Abdomen without Contrast Date of Exam: Exam# [id number] Ordering Dr: Harrison Lara DO PROCEDURE: MRCP ABDOMEN WITHOUT CONTRAST, 08/16/2024 REASON FOR EXAM: GALLSTONES TECHNIQUE: Multiplanar multisequence MRI abdomen was performed without IV contrast. MRCP was performed including generation of MIP reconstructions and 3D reformats. COMPARISON: 06/12/2024. FINDINGS: Note that the exam was optimized for evaluation of the gallbladder and biliary tree rather than the remaining abdominal viscera. Note also that sensitivity is limited in the absence of IV contrast. Variable overall mild motion limitation. Liver: Scattered small T2 bright presumed cysts, incompletely characterized in the absence of IV contrast. Gallbladder: Unremarkable. No filling defect to suggest cholelithiasis. The 2 x 3 x 2 mm tiny suspected polyps seen on ultrasound may be too small for resolution or may not be visible in the absence of IV contrast. The additional 1.2 x 0.9 x 0.9 cm focal fundal questioned mass/wall fundal thickening is also clearly visualized but may correlate with minimal fundal wall thickening. Biliary tree: Mild dilatation of the CBD to 9 mm with transition at the ampulla. No definite filling defects to suggest. Pancreas 5 mm T2 bright presumed cystic structure along the pancreatic head.No ductal dilatation. Other: Mild thickening of the bilateral adrenals without discrete nodule favoring hyperplasia. Atherosclerosis. MRI/MRCP Abdomen without Contrast IMPRESSION: 1. No cholelithiasis or choledocholithiasis identified. Mild dilatation of the CBD with transition at the ampulla where no obstructing lesion is evident in the absence of IV contrast or routine MRI abdomen sequences. Findings could reflect mild ampullary stenosis or less likely an occult underlying ampullary lesion. Correlate with serum bilirubin. Findings would be optimally evaluated by ERCP, as indicated. 2. Previous 1.2 cm sonographic finding not well depicted by noncontrast MRI. There is minimal suspected wall thickening in the gallbladder fundus which is nonspecific and incompletely evaluated in the absence of routine MRI abdomen sequences/IV contrast, but could reflect focal adenomyomatosis. This was better seen on CT probably due to the administration of IV contrast. In light of this and given that the finding was relatively convincing on ultrasound, recommend either follow- up ultrasound to ensure stability versus MRI with and without contrast for improved delineation of soft tissues. 3. 5 mm pancreatic lesion incompletely characterized in the absence of IV contrast but likely to reflect a tiny cystic neoplasm such as IPMN. Recommend follow-up multiphase pancreatic protocol MRI abdomen with and without contrast and with MRCP in 2 years per ACR recommendations to evaluate stability. 4. Additional description as above. Reading Location: [id number] CC: SERGIO Bermudez; Harrison Lara DO High Density Finishing Operator: Signed Normal [facility] Gastroenterology Visit Repor ton 08-03-2024 Gastroenterology Visit Report [facility] Gastroenterology [address] [place] [address] OFFICE VISIT Date of Service: 08/03/24 MR#: [id number] Acct: [id number] Name: LETA CORONADO Rep #: [id number] : 1955 Provider: Harrison Lara DO Age/Sex: 69/M [place] [facility] [place]: Signed Intake Vital Signs 07/22/21 08:20 [...] (Updated 08/03/24 @ 15:[address] Harrison Lara, ) Cancer Hepatitis Back pain Injury of back [...] use type: marijuana HPI HPI Details: LETA CORONADO, is a 69 M who presents to [...] 69-year-old gentleman with history of prostate cancer Livingston score 7 status post prostatectomy and external [...] 1.2 cm (more content not included)... Normal [facility] Abdomen WITH IV Contraston 0 06-12-2024 Abdomen WITH IV Contrast [facility] Imaging Services [address] [place] [id number] Abdomen WITH IV Contrast MR#: [id number] Acct: [id number] Name: LETA CORONADO Rep #: [id number] : 1955 69 From: Shonda Ford nd, MD PCP: SERGIO Alvarez Status: REG CLI Study: Abdomen WITH IV Contrast Date of Exam: 5 Exam# [id number] Ordering Dr: Miranda Bermudez PROCEDURE: ABDOMEN WITH IV CONTRAST 06/12/2024 REASON [...] left lower pole renal calculus. Reading Location: [facility] CC: SERGIO Bermudez High Density Finishing Operator: Signed Normal [facility] Diagnostic total prostate sp ecific antigen (PSA) measurementOrdered By: Miranda Bermudez on 06-12-2024 Prostate Specific Antigen Total < 0.02 ng/mL 0.00-4.00 [facility] Comment on above: This test was perfor [...] 05-15 PSA, DIAGNOSTIC < 0.02 Normal 0.00-4.00 [facility] Comment on above: Result Comment: This test [...] values. Performed By: #### L [phone] #### [facility] Laboratory [address] [place], [place], [address] Abdomen Completeon 5 Abdomen Complete [facility] [address] [place] [address] Abdomen Complete MR#: [id number] Acct: [id number] Name: LETA CORONADO Rep #: [id number] : 1955 M 69 From: Alvarez robertson MD PCP: SERGIO Alvarez Status: REG CLI Study: Abdomen Complete Date of Exam: 05/17/24 Exam# [id number] Ordering Dr: Miranda Bermudez PRODUCT TRAINER-Natasha PROCEDURE: ABDOMEN COMPLETE REASON FOR EXAM: Generalized [...] calculus in the left kidney. Reading Location: [facility] CC: SERGIO Bermudez High Density Finishing Operator: Signed Normal [facility] CBC + DIFFon 05-02-2024 Baso # 0.01 x10EE3/UL Normal 0.00 - 0.10 [facility] Comment on above: Performed By: #### 2 32457 #### [place] [address] Basophils/100 WBC (Bld) 0.2 % Normal 0.0 - 2.0 [facility] Comment on above: Performed By: #### 2 47787 #### [place] [address] CBC + DIFF Normal [facility] Comment on above: Result Comment: CBC- COMPLETE BLOOD COUNT Performed By: #### 2 64210 #### [place] [address] EO # 0.34 x10EE3/UL Normal 0.00 - 0.50 [facility] Comment on above: Performed By: #### 2 50512 #### [place] [address] Eosinophils/100 WBC (Bld) 4.5 % Normal 0.0 - 7.0 [facility] Comment on above: Performed By: #### 2 95271 #### [place] [address] Erythrocyte distribution width (RBC) [Ratio] 13.4 % Normal 12.0 - 15.6 [facility] Comment on above: Performed By: #### 2 57872 #### [place] [address] Hematocrit (Bld) [Volume fraction] 44.3 % Normal 40.0 - 52.0 [facility] Comment on above: Performed By: #### 2 98519 #### [facility],[address] [place], [place] [address] Hemoglobin (Bld) [Mass/Vol] 14.9 g/dL Normal 13.0 - 17.5 [facility] Comment on above: Performed By: #### 2 51792 #### [facility],[address] [place], [place] [address] Lymph # 2.80 x10EE3/UL Normal 0.80 - 2.80 [facility] Comment on above: Performed By: #### 2 52746 #### [facility],[address] [place] [address] Lymphocytes/100 WBC (Bld) 37.2 % Normal 20.0 - 45.0 [facility] Comment on above: Performed By: #### 2 16637 #### [facility],[address] [place] [address] MANUAL DIFF N/A Normal [facility] Comment on above: Performed By: #### 2 74345 #### [facility],[address] [place] [address] 81792 MCH (RBC) [Entitic mass] 33 pg Normal 27 - 33 [facility] Comment on above: Performed By: #### 2 49529 #### [facility],[address] [place] [address] MCHC 34 X10 3 Normal 32 - 36 [facility] Comment on above: Performed By: #### 2 70942 #### [facility],[address] [place] [address]3967 MCV (RBC) [Entitic vol] 97 fL Normal 81 - 98 [facility] Comment on above: Performed By: #### 2 87931 #### [facility],[address] [place] [address] Morrison # 0.52 x10EE3/UL Normal 0.20 - 1.00 [facility] Comment on above: Performed By: #### 2 15260 #### [facility],[address] [place] [address] MONOS % 6.9 % Normal 0.0 - 10.0 [facility] Comment on above: Performed By: #### 2 87775 #### [facility],[address] [place] [address] Morphology Dixon (Bld) [Interp] N/A Normal [facility] Comment on above: Performed By: #### 2 37339 #### [facility],[address] [place] [address] Neut # 3.85 x10EE3/UL Normal 1.50 - 7.10 [facility] Comment on above: Performed By: #### 2 84000 #### [facility],[address] [place] [address] Neutrophils/100 WBC (Bld) 51.3 % Normal 46.0 - 76.0 [facility] Comment on above: Performed By: #### 2 45278 #### [facility],[address] [place] [address] PLATELET 261 x10EE3/UL Normal 150 - 450 [facility] Comment on above: Performed By: #### 2 65312 #### [facility],[address] [place] [address] Platelet mean volume (Bld) [Entitic vol] 9.3 fL Normal 6.4 - 10.5 [facility] Comment on above: Result Comment: AUTO MATED DIFFERENTIAL Performed By: #### 2 24807 #### [facility],[address] [place] [address] RBC 4.58 x 10EE6/UL Normal 4.50 - 6.00 [facility] Comment on above: Performed By: #### 2 85841 #### [place] [address],[place] [address] WBC 7.5 x 10EE3/UL Normal 4.5 - 10.8 [facility] Comment on above: Performed By: #### 2 15984 #### [facility],[address] [place] [address] CMP with eGFRon 05-02-2024 AGE 69 years Normal [facility] Comment on above: Performed By: #### 2 56369 #### [facility],[address] [place] [address] 35968 Albumin [Mass/Vol] 4.2 g/dL Normal 3.4 - 5.0 [facility] Comment on above: Performed By: #### 2 71046 #### [facility],[address] [place] [address] 36532 Albumin/Globulin [Mass ratio] 1.6 {ratio} Normal 0.9 - 1.6 [facility] Comment on above: Performed By: #### 2 44747 #### [facility],[address] [place] [address] 84037 ALK PHOS 93 U/L Normal 46 - 116 [facility] Comment on above: Performed By: #### 2 67662 #### [facility],[address] [place] [address] 63336 ALT [Catalytic activity/Vol] 27 U/L Normal 16 - 63 [facility] Comment on above: Performed By: #### 2 05496 #### [facility],[address] [place] [address] 64559 Anion gap [Moles/Vol] 14 mmol/L Normal 10 - [address] [facility] Comment on above: Performed By: #### 2 19545 #### [facility],[address] [place] [address] 75029 AST [Catalytic activity/Vol] 14 U/L Low 15 - 37 [facility] Comment on above: Performed By: #### 2 06268 #### [facility],[address] [place] [address] 29932 B/C RATIO 15 ratio Normal 0 - 30 [facility] Comment on above: Performed By: #### 2 27149 #### [facility],[address] [place] [address] 30414 Bilirubin [Mass/Vol] 0.2 mg/dL Normal 0.2 - 1.0 [facility] Comment on above: Performed By: #### 2 59747 #### [facility],[address] [place] [address] 15754 Calcium [Mass/Vol] 9.7 mg/dL Normal 8.5 - 10.1 [facility] Comment on above: Performed By: #### 2 60943 #### [facility],[address] [place] [address] 62474 Chloride [Moles/Vol] 107 mmol/L Normal 98 - 107 [facility] Comment on above: Performed By: #### 2 66513 #### [facility],[address] [place] [address] 87618 CMP with eGFR Normal [facility] Comment on above: Result Comment: COMP REHENSIVE METABOLIC PANEL Performed By: #### 2 42681 #### [facility],[address] [place] [address] 22712 CO2 [Moles/Vol] 30.1 mmol/L Normal 21.0 - 32.0 [facility] Comment on above: Performed By: #### 2 11277 #### [facility],[address] [place] [address] 01537 Creatinine [Mass/Vol] 0.91 mg/dL Normal 0.70 - 1.30 [facility] Comment on above: Performed By: #### 2 09723 #### [facility],[address] [place] [address]337 GFR/1.73 sq M.predicted among non-blacks MDRD (S/P/Bld) [Vol rate/Area] mL/min/{1.73_m2} Normal 60 - 999 [facility] Comment on above: Performed By: #### 2 27823 #### [address] [address] Result Comment: ACCO RDING TO THE NATIONAL KIDNEY DISEASE EDUCATION PROGRAM(NKDE), A NORMAL eGFR IS A VALUE GREATER THAN OR EQUAL TO 60 ML/MIN/1.73 SQ METERS. CHRONIC KIDNEY DISEASE: <60mL/MIN/1.73 SQ METERS KIDNEY FAILURE: <15mL/MIN/1.73 SQ METERS THIS TEST SHOULD ONLY BE USED FOR PATIENTS 18 YEARS OF AGE AND OLDER. Globulin (S) [Mass/Vol] 2.6 g/dL Normal 1.5 - 3.8 [facility] Comment on above: Performed By: #### 2 36523 #### [address] [address] Glucose [Mass/Vol] 90 mg/dL Normal 74 - 106 [facility] Comment on above: Performed By: #### 2 22667 #### [address] [address] Potassium [Moles/Vol] 4.2 mmol/L Normal 3.5 - 5.[address] [facility] Comment on above: Performed By: #### 2 27838 #### [address] [address] Protein [Mass/Vol] 6.8 g/dL Normal 6.4 - 8.2 [facility] Comment on above: Performed By: #### 2 30970 #### [address] [address] Sodium [Moles/Vol] 147 mmol/L High 136 - 145 [facility] Comment on above: Performed By: #### 2 59491 #### [address] [address] Urea nitrogen [Mass/Vol] 14 mg/dL Normal 7 - 18 [facility] Comment on above: Performed By: #### 2 05693 #### [facility],[address] [place] [address] LIPID PROFILEon 05-02-2024 Cholesterol [Mass/Vol] 111 mg/dL Normal 0 - 240 [facility] Comment on above: Performed By: #### 2 36903 #### [facility],[address] [place] [address] Cholesterol in HDL [Mass/Vol] 39 mg/dL Low 40 - 60 [facility] Comment on above: Performed By: #### 2 31155 #### [facility],[address] [place] [address] 11134 Cholesterol in LDL [Mass/Vol] 57 mg/dL Normal 0 - 129 [facility] Comment on above: Performed By: #### 2 56609 #### [facility],[address] [place] [address]64 Cholesterol.total/Chol esterol in HDL [Mass ratio] 2.8 {ratio} Normal 0.0 - 5.0 [facility] Comment on above: Performed By: #### 2 04806 #### [facility],[address] [place] [address] 47098 Lipid 1996 panel Normal [facility] Comment on above: Result Comment: LIPI D PROFILE Performed By: #### 2 81652 #### [facility],[address] [place] [address]65 Triglyceride [Mass/Vol] 73 mg/dL Normal 0 - 150 [facility] Comment on above: Performed By: #### 2 23457 #### [facility],[address] [place] [address] 20109 No Panel Informationon 07-17 Prostate Specific Antigen Screen < 0.01 ng/mL 0.00-4.00 [facility] Work Phone: Comment on above: This test was perfor med using the TPSA assay method for the[facility] chemistry system. Values obtained with differentassay methods cannot be used interchangably.When changing PSA assays in the course of monitoring apatient, additional sequential testing should be carriedout to confirm baseline values. TESTOST,FREE AND TOTALon TESTOSTERONE TOT.LC/MS/MS 903 ng/dL Normal 250-1100 [facility] Comment on above: Result Comment: Men with clinically significant hypogonadal symptoms and testosterone values repeatedly in the range of the 200-300 ng/dL or less, may benefit from testosterone treatment after adequate risk and benefits counseling. For additional information, please refer to http://education.[employer]/faq/ AjpdgQzzgfbseegsaJEXMSWGKC217 (This link is being provided for informational/ educational purposes only.) This test was developed and its analytical performance characteristics have been determined by [employer] [place], [place]. It has not been cleared or approved by the U.S. Food and Drug Administration. This assay has been validated pursuant to the CLIA regulations and is used for clinical purposes. Performed By: #### T ESFT #### [employer] [facility] [address] [place], [place] TESTOSTERONE,FREE 119.2 pg/mL Normal 35.0-155.0 [facility] Comment on above: Result Comment: This test was developed and its analytical performance characteristics have been determined by [employer] [place]. It has not been cleared or approved by the U.S. Food and Drug Administration. This assay has been validated pursuant to the CLIA regulations and is used for clinical purposes. Performed By: #### T ESFT #### [employer] [facility] [address] [place], [place] CBC AND DIFFERENTIALon 03-07 Basophils (Bld) [#/Vol] 0.00 10*3/uL Normal 0.00 - 0.10 [facility] Comment on above: Performed By: #### C BCDF #### [place] [address] [place] [address] Basophils/100 WBC (Bld) 1.1 % Normal 0.0 - 2.0 [facility] Comment on above: Performed By: #### C BCDF #### [address] [address] Eosinophils (Bld) [#/Vol] 0.10 10*3/uL Normal 0.00 - 0.70 [facility] Comment on above: Performed By: #### C BCDF #### [address] [address] Eosinophils/100 WBC (Bld) 1.6 % Normal 0.0 - 6.0 [facility] Comment on above: Performed By: #### C BCDF #### [address] [address] Erythrocyte distribution width (RBC) [Ratio] 14.1 % Normal 11.5 - 14.5 [facility] Comment on above: Performed By: #### C BCDF #### [address] [address] Hematocrit (Bld) [Volume fraction] 44.1 % Normal 41.0 - 52.0 [facility] Comment on above: Performed By: #### C BCDF #### [address] [address] Hemoglobin (Bld) [Mass/Vol] 14.6 g/dL Normal 13.5 - 17.5 [facility] Comment on above: Performed By: #### C BCDF #### [address] [address] Lymphocytes (Bld) [#/Vol] 0.90 10*3/uL Low 1.20 - 4.80 [facility] Comment on above: Performed By: #### C BCDF #### [address] [address] Lymphocytes/100 WBC (Bld) 19.1 % Normal 13.0 - 44.0 [facility] Comment on above: Performed By: #### C BCDF #### [address] [address] MCHC (RBC) [Mass/Vol] 33.2 g/dL Normal 32.0 - 36.[address] [facility] Comment on above: Performed By: #### C BCDF #### [address] [place] [address] MCV (RBC) [Entitic vol] 99 fL Normal 80 - 100 [facility] Comment on above: Performed By: #### C BCDF #### [address] [address] Monocytes (Bld) [#/Vol] 0.40 10*3/uL Normal 0.10 - 1.00 [facility] Comment on above: Performed By: #### C BCDF #### [address] [address] Monocytes/100 WBC (Bld) 8.9 % Normal 2.0 - 10.0 [facility] Comment on above: Performed By: #### C BCDF #### [address] [address] Neutrophils (Bld) [#/Vol] 3.10 10*3/uL Normal 1.20 - 7.70 [facility] Comment on above: Performed By: #### C BCDF #### [address] [address] Neutrophils/100 WBC (Bld) 69.3 % Normal 40.0 - 80.0 [facility] Comment on above: Performed By: #### C BCDF #### [address] [address] Nucleated RBC/100 WBC (Bld) [Ratio] 0.1 /100 WBC Normal [facility] Comment on above: Performed By: #### C BCDF #### [address] [address] Platelets (Bld) [#/Vol] 214 10*3/uL Normal 150 - 450 [facility] Comment on above: Performed By: #### C BCDF #### [address] [address] RBC (Bld) [#/Vol] 4.47 x10E12/L Low 4.50 - 5.90 [facility] Comment on above: Performed By: #### C BCDF #### [address] [address] WBC (Bld) [#/Vol] 4.5 10*3/uL Normal 4.4 - 11.3 [facility] Comment on above: Performed By: #### C BCDF #### [address] [address] TSHon 03-07-2019 TSH Qn 0.72 m[IU]/L Normal 0.44 - 3.98 [facility] Comment on above: Result Comment: TSH testing is performed using different testing methodology at [facility] than at other [facility]. Direct result comparisons should only be made within the same method. Performed By: #### T SH2 #### [address] [address] Vital Signs Date Time Vital Sign Value Performing Clinician Imani kramer 08-25-2024 16:26-0400 Body temperature 97.7 [degF] Miranda Bermudez PRODUCT TRAINER-C Work Phone: [facility] 08-25-2024 16:26-0400 Diastolic blood pressure 86 mm[Hg] Miranda Bermudez PRODUCT TRAINER-C Work Phone: [facility] 08-25-2024 16:26-0400 Heart rate 69 /min Miranda Aidan PRODUCT TRAINER-C Work Phone: [facility] 08-25-2024 16:26-0400 Respiratory rate 16 /min Miranda Bermudez PRODUCT TRAINER-C Work Phone: [facility] 08-25-2024 16:26-0400 SaO2% (BldA) [Mass fraction] 100 % Miranda Bermudez PRODUCT TRAINER-C Work Phone: [facility] 08-25-2024 16:26-0400 Systolic blood pressure 164 mm[Hg] Miranda Aidan PRODUCT TRAINER-C Work Phone: [facility] 08-25-2024 13:48-0400 Body height 182.88 cm Miranda Aidan PRODUCT TRAINER-C Work Phone: [facility] 08-25-2024 13:48-0400 Body mass index (BMI) [Ratio] 19.1 kg/m2 Miranda Bermudez PRODUCT TRAINER-C Work Phone: [facility] 08-25-2024 13:48-0400 Body weight 64 kg Miranda LEYVA Work Phone: [facility] 07-22-2021 09:28-0400 Body temperature 96.9 [degF] Dr. Ronny Dejesus Work Phone: [facility] Work Phone: 07-22-2021 09:28-0400 Diastolic blood pressure 93 mm[Hg] Dr. Ronny Dejesus Work Phone: [facility] Work Phone: 07-22-2021 09:28-0400 Heart rate 64 /min Dr. Ronny Dejesus Work Phone: [facility] Work Phone: 07-22-2021 09:28-0400 Respiratory rate 16 /min Dr. Ronny Dejesus Work Phone: [facility] Work Phone: 07-22-2021 09:28-0400 SaO2% (BldA) [Mass fraction] 100 % Dr. Ronny Dejesus Work Phone: [facility] Work Phone: 07-22-2021 09:28-0400 Systolic blood pressure 155 mm[Hg] Dr. Ronny Dejesus Work Phone: [facility] Work Phone: 07-22-2021 08:20-0400 Body height 182.[address] Ronny Dejesus Work Phone: [facility] Work Phone: 07-22-2021 08:20-0400 Body mass index (BMI) [Ratio] 20.4 kg/m2 Dr. Ronny Dejesus Work Phone: [facility] Work Phone: 07-22-2021 08:20-0400 Body weight 68.[address] Ronny Dejesus Work Phone: [facility] Work Phone: Encounters Encounter Date Encounter Type Care Provider Facility Start: 08-25-2024 Non-patient / Non-visit Harrison Lara DO -[facility] Start: 08-25-2024 End: 08-25-2024 Admission to same day surgery center Harrison Lara DO -Endoscopy Work Phone: Start: 08-25-2024 End: 08-25-2024 ambulatory Miranda Aidan Facility:[facility] Start: 08-16-2024 End: 08-16-2024 ambulatory Miranda Houghchristiana Bermudez PRODUCT TRAINER-C Work Phone: [facility] Work Phone: Start: 08-16-2024 End: 08-16-2024 Patient encounter procedure Harrison Lara DO -[facility] Work Phone: Start: 08-16-2024 End: 08-16-2024 ambulatory Miranda Bermudez Facility:[facility] Start: 08-03-2024 End: 08-03-2024 Patient encounter procedure Harrison Lara DO -[facility] Work Phone: Start: 08-03-2024 End: 08-03-2024 ambulatory Miranda Bermudez Facility:[facility] Start: 06-12-2024 End: 06-12-2024 ambulatory Miranda Bermudez PRODUCT TRAINER-C Work Phone: [facility] Work Phone: Start: 06-12-2024 End: 06-12-2024 Patient encounter procedure Miranda Bermudez PRODUCT TRAINER-C -Cat Scan, [facility] Work Phone: Start: 06-12-2024 End: 06-12-2024 ambulatory Dave Almanza Facility:[facility] Start: 05-17-2024 End: 05-17-2024 ambulatory Miranda Bucio Aidan PRODUCT TRAINER-C Work Phone: [facility] Work Phone: Start: 05-17-2024 End: 05-17-2024 Patient encounter procedure Miranda Bermudez SERGIO -Ultrasound, [facility] Work Phone: Start: 05-17-2024 End: 05-17-2024 ambulatory Miranda Bermudez Facility:[facility] Start: 05-02-2024 End: 05-02-2024 ambulatory MIRANDA BERMUDEZ [facility] Start: 10-21-2023 End: 10-21-2023 ambulatory MIRANDA BERMUDEZ [facility] Start: 07-22-2021 Non-patient / Non-visit Dr. Ronny Dejesus Work Phone: [facility] Start: 07-22-2021 End: 07-22-2021 Admission to same day surgery center Dr. Ronny Dejesus Work Phone: [facility]-Endoscopy Start: 07-17-2021 End: 07-17-2021 Patient encounter procedure [facility] Start: 08-20-2017 Ambulatory Navneet Martin Facility:[facility] [place] Procedures Date Procedure Procedure Detail Performing Clinician Start: 08-25-2024 Fluoroscopic guidance Miranda Bermudez PRODUCT TRAINER-C Work Phone: Start: 08-25-2024 Endoscopic retrograde cholangiopancreatography Miranda Bermudez PRODUCT TRAINER-C Work Phone: Start: 08-16-2024 Magnetic resonance cholangiopancreatography Miranda Bermudez PRODUCT TRAINER-C Work Phone: Start: 06-12-2024 Assay of prostate specific antigen total Miranda Bermudez PRODUCT TRAINER-C Work Phone: Comment on above: This test was performed using the [employer] tPSA method. Measured values of a patient sample can vary depending on the testing procedure used. PSA values determined on patient samples by different testing procedures cannot be used interchangeably. If there is a change in PSA assays while monitoring therapy, sequential testing should be performed to confirm baseline values. Start: 06-12-2024 CT of abdomen with contrast Miranda Bermudez PRODUCT TRAINER-C Work Phone: Start: 05-17-2024 CT of abdomen Miranda LEYVA Work Phone: Start: 07-22-2021 End: 07-22-[address] Ronny Dejesus Work Phone: Start: 07-22-[address] Ronny Dejesus Work Phone: Plan of Treatment Date Care Activity Detail Author Start: 08-25-2024 Endoscopic retrograde cholangiopancreatography ERCP Biliary/Pancreas [facility] Start: 08-25-2024 RF Guidance for endoscopy of Biliary ducts and Pancreatic duct-- W contrast retrograde [facility] Start: 08-25-2024 Patient discharge [facility] Patient referral [facility] Work Phone: Payers Date Payer Category Payer Self-pay [id number] 2024 Medicare [id number] 2017 Private Health Insurance 2015 Medicare [id number] 1955 Unknown [id number] 1955 Unknown [id number] Medicare [id number] Unknown SELF PAY INSURANCE [id number] Unknown [id number] Unknown [id number] Unknown [id number] Unknown [id number] Unknown [id number] Unknown [id number] Social History Date Type Detail Facility [facility]: [facility]17[facility]21 [facility] Work Phone: Start: 04-20-2016 Occasional [facility] Start: 04-20-2016 None [facility] Start: 04-20-2016 Alone [facility] Start: 02-01-2019 Cigarettes [facility] Start: 1955 Sex Assigned At Male [facility] Start: 07-24-2021 End: 08-24-2024 Tobacco smoking status NHIS Smokes tobacco daily (finding) [facility] Start: 05-29-2024 End: 06-14-2024 Sex Male (finding) [facility] Medical Equipment Procedure Code Equipment Code Equipment Origin al Text Equipment Identifier Dates PHOENIXHEMLISAANUJA [employer] FDA Start: 11-17-2017 CLIPHEMLISAANUJA [employer] FDA Start: 11-17-2017 PHOENIXHEMESAU ROMAN [employer] FDA Start: 11-17-2017 PHOENIXHEMLISAANUJA ROMAN [employer] FDA Start: 11-17-2017 PHOENIXHEMLISAANUJA ROMAN listedplacesCK FDA Start: 11-17-2017 PHOENIXHEMLISAANUJA LG listedplacesCK FDA Start: 11-17-2017 PHOENIXHEMESAU ROMAN listedplacesCK FDA Start: 11-17-2017 PHOENIXHEMESAU LG [employer]ECK FDA Start: 11-17-2017 PHOENIXHEMLISAANUJA LG WECK FDA Start: 11-17-2017 CLIPHEMLISAANUJA LG WECK FDA Start: 11-17-2017 PHOENIXHEMLISAANUJA LG WECK FDA Start: 11-17-2017 PHOENIXHEMESAU LG WECK FDA Start: 11-17-2017 PHOENIXHEMESAU ROMAN WECK FDA Start: 11-17-2017 PHOENIXHEMLISAANUJA ROMAN WECK FDA Start: 11-17-2017 [place]HE[place]JA ROMAN listedplacesCK FDA Start: 11-17-2017 PHOENIXHEMESAU ROMAN listedplacesCK FDA Start: 11-17-2017 NEO GARIBAY LG FDA Start: 11-17-2017 NEO GARIBAY LG FDA Start: 11-17-2017 Goals Date Patient Goal Desired Activity /State Mental Status Date Assessment Result Facility 08-25-2024 Cognitive function Voice/Name [facility] Work Phone: 07-22-2021 Cognitive function Voice/Name [facility] Work Phone: Clinical Notes 05-17-2024 to 08-25-2024 Note Date & Type Note Facility 08-25-2024 Consult note [facility] 08-25-2024 Consult note [facility] 08-25-2024 History and physical note Note Date/Time August 25, 2024 1:55pm [facility] Medical Records Department [address] [place] [address] History & Physical Exam 08/25/24 1323 MR#: [id number] Acct: [id number] Name: LETA CORONADO Rep #:[id number] : 1955 69 From: Harrison Lara DO PCP: SERGIO Alvarez [place] [facility] [place] [address] HPI - General General Date of Admission: 08/25/24 Date of Service: 08/25/24 HPI Narrative LETA CORONADO, is a 69 M who presents to the office today for initial consult. abd US 3.5.25 There is a 1.2 cm x 0.9 cm x 0.9 cm soft tissue density in thefundal portion of the gallbladder with vascularity. Correlation with a CT scan is recommended for further evaluation. Multiple small hepatic cysts. Nonobstructive calculus in the left kidney. abd CT 3.31.25 1. No acute abdominopelvic finding. 2. Punctate nonobstructing left lower pole renal calculus. *BGI established 5.22.25 pt reports that he has been having abdominal issues forthe past 6 years since he had prostate surgery. Pt reports he had 34 rounds of radiation and that is the area where he is now having constant cramping and discomfort. Pt reports he was referred for abnormal findings on recent imaging. [facility] Medical History Wears dentures Marijuana use History of echocardiogram Cancer Hepatitis Back pain Injury of back Injury of head and neck Syncope TIA (transient ischemic attack) History of diverticulitis Gastric reflux Smoker History of stress test Hx of reduction of nasal fracture Prostate cancer Left arm pain Chest pain Arm paresthesia, left Stroke HTN (hypertension) RLS (restless legs syndrome) Home Medications ?Medication ?Instructions ?Recorded ?Last Taken ?Type oxybutynin chloride 10 mg 5 mg PO DAILY 08/03/24 Unkno wn History tablet,extended release 24 hr Allergy/AdvReac Type Severity Reaction Status Date / Time Penicillins Allergy PT UNSURE Verified 08/25/24 13:47 OF REACTION Family History Father Colon cancer Grandfather Colon cancer Surgical History History of cardiac catheterization Hx of colonoscopy S/P prostatectomy S/P cervical spinal fusion Social History Smoking Status: Current every day smoker tobacco type: cigarettes alcohol intake: never substance use type: marijuana ROS Constitutional Constitutional: Denies fatigue, fever(s), poor appetite, weight gain or weight loss Gastrointestinal Gastrointestinal: Denies belching, bloating, change in bowel habits, change in stool character, chewing difficulty, coffee ground emesis, constipation, cramping, diarrhea, dyspepsia, dysphagia, early satiety, excessive flatus, fecalincontinence, heartburn, hematemesis, hematochezia, hemorrhoids, loose stools, melena, nausea, odynophagia, rectal bleeding, tenesmus, vomiting or weight changes Physical Exam Const alert, oriented x3, no apparent distress and healthy appearing General Appearance: cooperative GI normal to inspection, nondistended, normoactive bowel sounds, soft to palpation,non-tender and non-distended Percussion: normal to percussion Rectal Exam: deferred Assessment & Plan Assessment/Plan (1) Abdominal pain: (2) History of colon polyps: PLAN: Assessment and Plan Assessment and Plan (1) Abdominal pain: Status: Acute (2) Abnormal finding on imaging: Status: Acute Plan: 69-year-old gentleman with history of prostate cancer Lashell score 7 status post prostatectomy and external [...] cysts. Nonobstructive calculus in the left kidney. CT/Abdomen WITH IV Contrast IMPRESSION: 1. No acute abdominopelvic finding. 2. Punctate nonobstructing left lower pole renal calculus. Differential diagnosis could be hemangioma, neuroendocrine tumor, gallbladder polyp. We will get an MRI and MRCP to evaluate patient's hepatobiliary system. He does have mild stones in his gallbladder so I think he would be a candidate for cholecystectomy. He underwent MRCP and it did show possible 1.2 cm lesion. In the fundic region of the gallbladder. However his common bile duct was 5 mm and it went up to 9 mm and on his imaging you can also see the pancreatic duct dilated. Differential diagnosis would be ampullary lesion. ERCP suggested by radiology for further evaluation. Patient was explained alternative, risk and benefits including withstand bleeding, fracture, steps, perforation, need for charge and . He will have an ASA of 3. 08/25/24 1355 <Electronically signed by Harrison Lara DO> Cosigner Signature (if applicable): CC: SERGIO Bermudez; Harrison Lara DO~ Signed [facility] Work Phone: 1(510) 699-915506-13-2025 Procedure note [facility] Medical Records Department [address] [place] [address] ERCP Report MR#: [id number] Acct: [id number] Name: LETA CORONADO Rep #:[id number] : 1955 69 From: Harrison Lara DO PCP: SERGIO Alvarez [place] [facility] [place] Patient Name: Leta Coronado Procedure Date: 08/25/2024 2:41 PM Date of : 1955 Age: 69 Procedure: ERCP Indications: Abnormal abdominal CT, Abnormal MRCP, Abnormal abdominal ultrasound, Biliary dilation on Ultrasound Providers: Harrison Lara DO Referring MD: Sergio Alvarez Medicines: Monitored Anesthesia Care Patient Profile: This is a 69 year old male. Refer to note in patient chart for documentation of history and physical. Patient has symptoms of acute right upper quadrant abdominal pain. This patient has no history of previous ERCP. This patient has no history of surgical alteration of the upper digestive tract anatomy. Previously obtained MRI showed a dilation in the biliary tree, a dilation in the pancreas and a periampullary dilation. Complications: No immediate complications. Procedure: Pre-Anesthesia Assessment: - Prior to the procedure, a History and Physical was performed, and patient medications and allergies were reviewed. The patient is competent. The risks and benefits of the procedure and the sedation options and risks were discussed with the patient. All questions were answered and informed consent was obtained. Patient identification and proposed procedure were verified by the physician in the pre-procedure area. Mental Status Examination: alert and oriented. Airway Examination: normal oropharyngeal airway and neck mobility. Respiratory Examination: clear to auscultation. CV Examination: normal. Prophylactic Antibiotics: The patient does not require prophylactic antibiotics. Prior Anticoagulants: The patient has taken no anticoagulant or antiplatelet agents except for NSAID medication. ASA Grade Assessment: II - A patient with mild systemic disease. After reviewing the risks and benefits, the patient was deemed in satisfactory condition to undergo the procedure. The anesthesia plan was to use monitored anesthesia care (MAC). Immediately prior to administration of medications, the patient was re-assessed for adequacy to receive sedatives. The heart rate, respiratory rate, oxygen saturations, blood pressure, adequacy of pulmonary ventilation, and response to care were monitored throughout the procedure. The physical status of the patient was re-assessed after the procedure. After obtaining informed consent, the scope was passed under direct vision. Throughout the procedure, the patient's blood pressure, pulse, and oxygen saturations were monitored continuously. The Duodenoscope was introduced through the mouth, and advanced to the duodenum and used to inject contrast into the bile duct. The ERCP was accomplished without difficulty. The patient tolerated the procedure well. Scope In: 3:10:37 PM Scope Out: 3:33:02 PM Total Procedure Duration Time 0 hours 22 minutes 25 seconds Findings: The stitcher feeder film was normal. The esophagus was successfully intubated under direct vision. The scope was advanced to a normal major papilla in the descending duodenum without detailed examination of the pharynx, larynx and associated structures, and upper GI tract. The upper GI tract was grossly normal. The bile duct was deeply cannulated with the short-nosed traction sphincterotome. Contrast was injected. I personally interpreted the bile duct images. Ductal flow of contrast was adequate. Image quality was adequate. Contrast extended to the entire biliary tree. The lower third of the main bile duct contained filling defect(s) thought to be a stone and sludge. The biliary orifice was stenotic. This appeared benign. Opacification of the entire opacified area and entire biliary tree was successful. The maximum diameter of the ducts was 10 mm. The lower third of the main bile duct contained one stone, which was 6 mm in diameter. The entire opacified area was moderately dilated and diffusely dilated, secondary to a stricture. The largest diameter was 10 mm. A long 0.025 inch Jagwire was passed into the biliary tree. A 5 mm biliary sphincterotomy was made with a monofilament traction (standard) sphincterotome using ERBE electrocautery. There was no post-sphincterotomy bleeding. The biliary tree was swept with a 12 mm balloon starting at the bifurcation, left intrahepatic duct(s), left main hepatic duct, right intrahepatic duct(s) and right main hepatic duct. Sludge was swept from the duct. All stones were removed. The bile duct was deeply cannulated with the short-nosed traction sphincterotome. Contrast was injected. The lower third of the main bile duct contained a single localized stenosis 6 mm in length. Placement of a long 0.021 inch Jagwire into the biliary tree was attempted. This passed successfully. Cells for cytology were obtained by brushing in the lower third of the main bile duct. Impression: - Biliary papillary stenosis, benign. - A filling defect consistent with a stone and sludge was seen on the cholangiogram. - A single localized biliary stricture was found in the lower third of the main bile duct. The stricture was benign appearing. - The biliary system were moderately dilated, secondary to a stricture. - Choledocholithiasis was found. Complete removal was accomplished by biliary sphincterotomy and balloon extraction. - A biliary sphincterotomy was performed. - The biliary tree was swept. - Cells for cytology obtained in the lower third of the main duct. Procedure Code(s): --- Professional --- 12492, Endoscopic retrograde cholangiopancreatography (ERCP); with removal of calculi/debris from biliary/pancreatic duct(s) 36592, Endoscopic retrograde cholangiopancreatography (ERCP); with sphincterotomy/papillotomy 84615, 26, Endoscopic catheterization of the biliary ductal system, radiological supervision and interpretation CPT copyright 2021 [employer]. All rights reserved. The codes documented in this report are preliminary and upon yard demurrage clerk review may be revised to meet current compliance requirements. Harrison Lara DO 08/25/2024 3:43:52 PM This report has been signed electronically. Number of Addenda: 0 Note Initiated On: 08/25/2024 2:41 PM 08/25/24 1544 Date _ Harrison Andrews Signature: Date (if indicated) CC: SERGIO Bermudez; Harrison Lara DO ~ Date Dictated: 08/25/24 1441 Date Transcribed: High Density Finishing Operator: RF Signed [facility]06[facility]2025 Procedure note [facility] Medical Records Department [address] [place] [address] Operative Report - CC Letter MR#: [id number] Acct: [id number] Name: LETA CORONADO Rep #:[id number] : 1955 69 From: Harrison Lara DO PCP: SERGIO Alvarez Status:REG SDC 08/25/2024 Sergio Alvarez Re : ERCP procedure for Leta Coronado Henrietta Bermudez This procedure was performed on Sunday, August 25, 2024. My impressions and recommendations are as follows: Impressions : - Biliary papillary stenosis, benign. - A filling defect consistent with a stone and sludge was seen on the cholangiogram. - A single localized biliary stricture was found in the lower third of the main bile duct. The stricture was benign appearing. - The biliary system were moderately dilated, secondary to a stricture. - Choledocholithiasis was found. Complete removal was accomplished by biliary sphincterotomy and balloon extraction. - A biliary sphincterotomy was performed. - The biliary tree was swept. - Cells for cytology obtained in the lower third of the main duct. Recommendations : My findings are described in the full procedure note, which is enclosed. If I can be of further assistance, please feel free to contact me at . Sincerely, Harrison Lara DO 08/25/2024 3:43:52 PM This report has been signed electronically. 08/25/24 1544 Date _ Harrison Friend DO Cosigner Signature: Date (if indicated) CC: PRODUCT TRAINER-Natasha Terry Marco, ~ Date Dictated: 08/25/24 1441 Date Transcribed: High Density Finishing Operator: RF Signed [facility]06-13-2025 Consult note Author Storm Samson [facility] Note Date/Time August 25, 2024 1:43 pm [facility] Medical Records Department [address] [place] [address] Pre-Anesthesia Evaluation 08/25/24 1324 MR#: [id number] Acct: [id number] Name: LETA CORONADO Rep #:[id number] : 1955 69 From: Storm Samson MD PCP: SERGIO Alvarez Status:REG SDC Y Race: C Location: [place] [address] Storm Samson MD on 08/25/24 at 1343 Addendum Patient requiring stent placement. Therefore general anesthesia. Patient with C4 fracture. Has limited mobility. Consider GlideScope with collar during procedure. 08/25/24 1343 <Electronically signed by Storm Samson MD > Date _ Storm Samson MD cc: ~* Signed ASA Classification* ASA Classification ASA Classification: 3 Assessment & Plan Anesthesia* Anesthesia Assessment Anesthesia Assessment: Discussed sedation and/or anesthesia options, risks, benefits, and alternatives with patient/parents/legal guardian/POA. Questions invited. The patient/parents/legal guardian/POA seems to understand and agrees to proceedwith anesthesia plan. Reviewed the physical assessment, medical history, allergy history and patient home medications list prior to surgery/procedure/anesthetic and documented any changes. Performed airway and anesthesia risk assessments. Anesthesia Type Anesthesia Type: MAC (GA bkup) Anesthesia Focused Assessment* Airway Assessment Mouth opens: >3 cm Mallampati Score: II Labs Anesthesia Preop lab: CBC WBC 4.8 K/mm3 (4.4-11.0) 05/30/18 14:37 05/30/18 RBC 4.62 M/mm3 (4.6-6.2) 05/30/18 14:37 05/30/18 Hgb 14.6 g/dl (13.0-16.5) 05/30/18 14:37 05/30/18 Hct 43.1 % (40-54) 05/30/18 14:37 05/30/18 Plt Count 281 K/mm3 (150-450) 05/30/18 14:37 05/30/18 CHEMISTRY Potassium 3.6 mmol/L (3.5-5.1) 08/16/18 14:33 08/16/18 Sodium 142 mmol/L (136-145) 08/16/18 14:33 08/16/18 BUN 19 mg/dL (7-18) H 08/16/18 14:33 08/16/18 Creatinine 0.70 mg/dL (0.70-1.30) 08/16/18 14:33 08/16/18 Glucose 84 mg/dL (74-106) 08/16/18 14:33 08/16/18 POC Glucose 93 mg/dL (70-110) 08/05/15 12:00 08/05/15 TSH 0.52 uIU/mL (0.358-3.74) 04/19/16 16:15 COAG PT 12.8 SECONDS (11.7-14.9) 04/19/16 20:20 Pre-Assessment Diagnosis/Proposed Procedure Planned Operative Procedure(s): ERCP Anesthesia History Anesthesia History - germ drier: Anesthesia History - germ drier Hx Hospitalization No 08/24/24 08:31 Any Problems With Anesthesia No 08/24/24 08:31 Cholinesterase deficiency No 08/24/24 08:31 You/Your Family Experience No 08/24/24 08:31 fever (hyperthermia) with Relationship Recent Exposure to Contagious No 07/24/21 11:14 Disease Does patient have nerve No 08/24/24 08:31 stimulator Patient instructed to have device shut off --Does patient have Pacemaker or ICD? When Was Last Pacemaker Check QUESTION #4 FULL TEXT: You/Your Family Experience fever (hyperthermia) with Anesthesia Last Oral Intake Last Oral intake: Last Oral Intake NPO since Meds taken in AM with sips of water? Meds patient instructed to take am of surgery PONV PONV - germ drier: PONV - germ drier Female No 08/24/24 08:31 HX of Motion Sickness No 08/24/24 08:31 HX of N/V After Surgery No 08/24/24 08:31 Non-Smoker Yes 08/24/24 08:31 Duration of Surgery greater No 08/24/24 08:31 than 60 minutes Number of Risk Factors 1 08/24/24 08:31 PONV Score Low Risk 08/24/24 08:31 Height & Weight Height & Weight: Anesthesia: Height & Weight Height 6 ft 07/22/21 08:20 Respiratory Assessment Respiratory Assessment - germ drier: Respiratory Tract Infection Hx - germ drier Hx Respiratory Tract Infection No 08/24/24 08:31 STOP Sleep Apnea STOP Sleep Apnea - germ drier: STOP Sleep Apnea - germ drier Hx Hypertension No 08/24/24 08:31 Hx Sleep Apnea No 08/24/24 08:31 CPAP BIPAP Do you snore loudly (louder Yes 08/24/24 08:31 than talking or can be heard Do you often feel tired/ No 08/24/24 08:31 fatigued/ sleepy during daytime? Has anyone observed you stop Yes 08/24/24 08:31 breathing during sleep? STOP Results Positive 08/24/24 08:31 QUESTION #5 FULL TEXT : Do you snore loudly (louder than talking or can be heard through closed doors)? Tobacco Use History Tobacco Use History - germ drier: Tobacco Use History - germ drier Tobacco Use Smoking Status Current every day smoker 08/24/24 08:31 Hx Tobacco Use Yes: 1 ppd 08/24/24 08:31 Years Smoking Packs Smoked per Day Smoking Cessation Date was within the last 15 years Hx Smoking Cessation Date Hx Smoking Cessation No 08/24/24 08:31 Counseling Hematologic Medial History Hematologic Hx - germ drier: Hematologic Medical Hx - roller maker Hx of Blood Transfusion No 08/24/24 08:31 Hx of Transfusion in last 3 No 08/24/24 08:31 Months Date of Last Transfusion (if within last 3 months) Ever experience any problems No 08/24/24 08:31 with transfusion(s)? Specify any problems Hx of Preganancy in last 3 N/A 08/24/24 08:31 Months Nurse Filling Out Transfusion [id number] 08/24/24 08:31 & Questions: Date: 08/24/24 08/24/24 08:31 Time: 08:33 08/24/24 08:31 Patient unable to answer at this time (ie. confused, unrespo /Reproduction History /Reproductive History - germ drier: /Reproductive Hx- germ drier Hx Now No 08/24/24 08:31 Gestational Age (in weeks): EDC: Hx Hx Para Hx Section SAB No 08/24/24 08:31 Active Medications Active Medications: Current Medications Generic Name Dose Route Start Last Admin Trade Name Freq PRN Reason Stop Dose Admin Lactated Ringer's 1,000 mls @ 15 mls/hr 08/25/24 13:30 IV .Q48H BIRDIE PFSH Medical History Wears dentures Marijuana use History of echocardiogram Cancer Hepatitis Back pain Injury of back Injury of head and neck Syncope TIA (transient ischemic attack) History of diverticulitis Gastric reflux Smoker History of stress test Hx of reduction of nasal fracture Prostate cancer Left arm pain Chest pain Arm paresthesia, left Stroke HTN (hypertension) RLS (restless legs syndrome) Home Medications ?Medication ?Instructions ?Recorded ?Last Taken ?Type oxybutynin chloride 10 mg 5 mg PO DAILY 08/03/24 Unkno wn History tablet,extended release 24 hr Allergy/AdvReac Type Severity Reaction Status Date / Time Penicillins Allergy PT UNSURE Verified 08/24/24 08:28 OF REACTION Family History Father Colon cancer Grandfather Colon cancer Surgical History History of cardiac catheterization Hx of colonoscopy S/P prostatectomy S/P cervical spinal fusion Social History Smoking Status: Current every day smoker tobacco type: cigarettes alcohol intake: never substance use type: marijuana Review of Systems (Anesthesia) ROS Narrative System reviewed and no additional complaints, except as documented. 08/25/24 1325 <Electronically signed by Storm Samson MD > Date _ Storm Samson MD Cosigner Signature: Date CC: ~ Signed [facility] Work Phone: 1(732) 484-871106-13-2025 History and physical note [facility] Medical Records Department [address] [place] [address] History & Physical Exam 08/25/24 1323 MR#: [id number] Acct: [id number] Name: LETA CORONADO Rep #:[id number] : 1955 69 From: Harrison Lara DO PCP: SERGIO Alvarez [place] [facility] [place] [address] HPI - General General Date of Admission: 08/25/24 Date of Service: 08/25/24 HPI Narrative LETA CORONADO, is a 69 M who presents to the office today for initial consult. abd US 3.5.25 There is a 1.2 cm x 0.9 cm x 0.9 cm soft tissue density in thefundal portion of the gallbladder with vascularity. Correlation with a CT scan is recommended for further evaluation. Multiple small hepatic cysts. Nonobstructive calculus in the left kidney. abd CT 3.31.25 1. No acute abdominopelvic finding. 2. Punctate nonobstructing left lower pole renalcalculus. *BGI established 5.22.25 pt reports that he has been having abdominal issues forthe past 6 years since he had prostate surgery. Pt reports he had 34 rounds of radiation and that is the area where he is now having constant cramping and discomfort. Pt reports he was referred for abnormal findings on recent imaging. [facility] Medical History Wears dentures Marijuana use History of echocardiogram Cancer Hepatitis Back pain Injury of back Injury of head and neck Syncope TIA (transient ischemic attack) History of diverticulitis Gastric reflux Smoker History of stress test Hx of reduction of nasal fracture Prostate cancer Left arm pain Chest pain Arm paresthesia, left Stroke HTN (hypertension) RLS (restless legs syndrome) Home Medications ?Medication ?Instructions ?Recorded ?Last Taken ?Type oxybutynin chloride 10 mg 5 mg PO DAILY 08/03/24 Unkno wn History tablet,extended release 24 hr Allergy/AdvReac Type Severity Reaction Status Date / Time Penicillins Allergy PT UNSURE Verified 08/25/24 13:47 OF REACTION Family History Father Colon cancer Grandfather Colon cancer Surgical History History of cardiac catheterization Hx of colonoscopy S/P prostatectomy S/P cervical spinal fusion Social History Smoking Status: Current every day smoker tobacco type: cigarettes alcohol intake: never substance use type: marijuana ROS Constitutional Constitutional: Denies fatigue, fever(s), poor appetite, weight gain or weight loss Gastrointestinal Gastrointestinal: Denies belching, bloating, change in bowel habits, change in stool character, chewing difficulty, coffee ground emesis, constipation, cramping, diarrhea, dyspepsia, dysphagia, earlysatiety, excessive flatus, fecalincontinence, heartburn, hematemesis, hematochezia, hemorrhoids, loose stools, melena, nausea, odynophagia, rectal bleeding, tenesmus, vomiting or weight changes Physical Exam Const alert, oriented x3, no apparent distress and healthy appearing General Appearance: cooperative GI normal to inspection, nondistended, normoactive bowel sounds, soft to palpation,non-tender and non-distended Percussion: normal to percussion Rectal Exam: deferred Assessment & Plan Assessment/Plan (1) Abdominal pain: (2) History of colon polyps: PLAN: Assessment and Plan Assessment and Plan (1) Abdominal pain: Status: Acute (2) Abnormal finding on imaging: Status: Acute Plan: 69-year-old gentleman with history of prostate cancer Lashell score 7 status post prostatectomy andexternal beam radiation. He also has a history [...] cysts. Nonobstructive calculus in the left kidney. CT/Abdomen WITH IV Contrast IMPRESSION: 1. No acute abdominopelvic finding. 2. Punctate nonobstructing left lower pole renal calculus. Differential diagnosis could be hemangioma, neuroendocrine tumor, gallbladder polyp. We will get anMRI and MRCP to evaluate patient's hepatobiliary system. He does have mild stones in his gallbladder so I think he would be a candidate for cholecystectomy. He underwent MRCP and it did show possible 1.2 cm lesion. In the fundic region of the gallbladder. However his common bile duct was 5 mm and it went up to 9 mm and on his imaging you can also see thepancreatic duct dilated. Differential diagnosis would be ampullary lesion. ERCP suggested by radiology for further evaluation. Patient was explained alternative, risk and benefits including withstandbleeding, fracture, steps, perforation, need for charge and . He will have an ASA of 3. 08/25/24 1355 Cosigner Signature (if applicable): CC: PRODUCT TRAINERZofia Bermudez; Harrison Friend, DO~ Signed [facility]06-13-2025 Consult note [facility] Medical Records Department [address] [place] [address] Pre-Anesthesia Evaluation 08/25/24 1324 MR#: [id number] Acct: [id number] Name: LETA CORONADO Rep #:[id number] : 1955 69 From: Storm Samson MD PCP: SERGIO Alvarez Status:REG SDC Y Race: C Location: [place] [address] Storm Samson MD on 08/25/24 at 1343 Addendum Patient requiring stent placement. Therefore general anesthesia. Patient with C4 fracture. Has limited mobility. Consider GlideScope with collar during procedure. 08/25/24 1343 > Date _ Storm Samson MD cc: ~* Signed ASA Classification* ASA Classification ASA Classification: 3 Assessment & Plan Anesthesia* Anesthesia Assessment Anesthesia Assessment: Discussed sedation and/or anesthesia options, risks, benefits, and alternatives with patient/parents/legal guardian/POA. Questions invited. The patient/parents/legal guardian/POA seems to understand and agrees to proceedwith anesthesia plan. Reviewed the physical assessment, medical history, allergy history and patient home medications list prior to surgery/procedure/anesthetic and documented any changes. Performed airway and anesthesia risk assessments. Anesthesia Type Anesthesia Type: MAC (GA bkup) Anesthesia Focused Assessment* Airway Assessment Mouth opens: >3 cm Mallampati Score: II Labs Anesthesia Preop lab: CBC WBC 4.8 K/mm3 (4.4-11.0) 05/30/18 14:37 05/30/18 RBC 4.62 M/mm3 (4.6-6.2) 05/30/18 14:37 05/30/18 Hgb 14.6 g/dl (13.0-16.5) 05/30/18 14:37 05/30/18 Hct 43.1 % (40-54) 05/30/18 14:37 05/30/18 Plt Count 281 K/mm3 (150-450) 05/30/18 14:37 05/30/18 CHEMISTRY Potassium 3.6 mmol/L (3.5-5.1) 08/16/18 14:33 08/16/18 Sodium 142 mmol/L (136-145) 08/16/18 14:33 08/16/18 BUN 19 mg/dL (7-18) H 08/16/18 14:33 08/16/18 Creatinine 0.70 mg/dL (0.70-1.30) 08/16/18 14:33 08/16/18 Glucose 84 mg/dL (74-106) 08/16/18 14:33 08/16/18 POC Glucose 93 mg/dL (70-110) 08/05/15 12:00 08/05/15 TSH 0.52 uIU/mL (0.358-3.74) 04/19/16 16:15 COAG PT 12.8 SECONDS (11.7-14.9) 04/19/16 20:20 Pre-Assessment Diagnosis/Proposed Procedure Planned Operative Procedure(s): ERCP Anesthesia History Anesthesia History - germ drier: Anesthesia History - germ drier Hx Hospitalization No 08/24/24 08:31 Any Problems With Anesthesia No 08/24/24 08:31 Cholinesterase deficiency No 08/24/24 08:31 You/Your Family Experience No 08/24/24 08:31 fever (hyperthermia) with Relationship Recent Exposure to Contagious No 07/24/21 11:14 Disease Does patient have nerve No 08/24/24 08:31 stimulator Patient instructed to have device shut off --Does patient have Pacemaker or ICD? When Was Last Pacemaker Check QUESTION #4 FULL TEXT: You/Your Family Experience fever (hyperthermia) with Anesthesia Last Oral Intake Last Oral intake: Last Oral Intake NPO since Meds taken in AM with sips of water? Meds patient instructed to take am of surgery PONV PONV - germ drier: PONV - germ drier Female No 08/24/24 08:31 HX of Motion Sickness No 08/24/24 08:31 HX of N/V After Surgery No 08/24/24 08:31 Non-Smoker Yes 08/24/24 08:31 Duration of Surgery greater No 08/24/24 08:31 than 60 minutes Number of Risk Factors 1 08/24/24 08:31 PONV Score Low Risk 08/24/24 08:31 Height & Weight Height & Weight: Anesthesia: Height & Weight Height 6 ft 07/22/21 08:20 Respiratory Assessment Respiratory Assessment - germ drier: Respiratory Tract Infection Hx - germ drier Hx Respiratory Tract Infection No 08/24/24 08:31 STOP Sleep Apnea STOP Sleep Apnea - germ drier: STOP Sleep Apnea - germ drier Hx Hypertension No 08/24/24 08:31 Hx Sleep Apnea No 08/24/24 08:31 CPAP BIPAP Do you snore loudly (louder Yes 08/24/24 08:31 than talking or can be heard Do you often feel tired/ No 08/24/24 08:31 fatigued/ sleepy during daytime? Has anyone observed you stop Yes 08/24/24 08:31 breathing during sleep? STOP Results Positive 08/24/24 08:31 QUESTION #5 FULL TEXT : Do you snore loudly (louder than talking or can be heard through closeddoors)? Tobacco Use History Tobacco Use History - germ drier: Tobacco Use History - germ drier Tobacco Use Smoking Status Current every day smoker 08/24/24 08:31 Hx Tobacco Use Yes: 1 ppd 08/24/24 08:31 Years Smoking Packs Smoked per Day Smoking Cessation Date was within the last 15 years Hx Smoking Cessation Date Hx Smoking Cessation No 08/24/24 08:31 Counseling Hematologic Medial History Hematologic Hx - germ drier: Hematologic Medical Hx - roller maker Hx of Blood Transfusion No 08/24/24 08:31 Hx of Transfusion in last 3 No 08/24/24 08:31 Months Date of Last Transfusion (if within last 3 months) Ever experience any problems No 08/24/24 08:31 with transfusion(s)? Specify any problems Hx of Preganancy in last 3 N/A 08/24/24 08:31 Months Nurse Filling Out Transfusion [id number] 08/24/24 08:31 & Questions: Date: 08/24/24 08/24/24 08:31 Time: 08:33 08/24/24 08:31 Patient unable to answer at this time (ie. confused, unrespo /Reproduction History /Reproductive History - germ drier: /Reproductive Hx- germ drier Hx Now No 08/24/24 08:31 Gestational Age (in weeks): EDC: Hx Hx Para Hx Section SAB No 08/24/24 08:31 Active Medications Active Medications: Current Medications Generic Name Dose Route Start Last Admin Trade Name Freq PRN Reason Stop Dose Admin Lactated Ringer's 1,000 mls @ 15 mls/hr 08/25/24 13:30 IV .Q48H BIRDIE PFSH Medical History Wears dentures Marijuana use History of echocardiogram Cancer Hepatitis Back pain Injury of back Injury of head and neck Syncope TIA (transient ischemic attack) History of diverticulitis Gastric reflux Smoker History of stress test Hx of reduction of nasal fracture Prostate cancer Left arm pain Chest pain Arm paresthesia, left Stroke HTN (hypertension) RLS (restless legs syndrome) Home Medications ?Medication ?Instructions ?Recorded ?Last Taken ?Type oxybutynin chloride 10 mg 5 mg PO DAILY 08/03/24 Unkno wn History tablet,extended release 24 hr Allergy/AdvReac Type Severity Reaction Status Date / Time Penicillins Allergy PT UNSURE Verified 08/24/24 08:28 OF REACTION Family History Father Colon cancer Grandfather Colon cancer Surgical History History of cardiac catheterization Hx of colonoscopy S/P prostatectomy S/P cervical spinal fusion Social History Smoking Status: Current every day smoker tobacco type: cigarettes alcohol intake: never substance use type: marijuana Review of Systems (Anesthesia) ROS Narrative System reviewed and no additional complaints, except as documented. 08/25/24 1325 > Date _ Storm [facility] Signature: Date CC: ~ Signed [facility]06-13-2025 [facility] Medical Records Department [address] [place] [address] History Physical Exam 08/25/24 1323 MR#: [id number] Acct: [id number] Name: LETA CORONADO Rep #: [id number] : 1955 69 From: Harrison Lara DO PCP: SERGIO Alvarez [place] [facility] [place] [address] HPI - General General Date of Admission: 08/25/24 Date of Service: 08/25/24 HPI Narrative LETA CORONADO, is a 69 M who presents to the office today for initial consult. abd US 3.5.25 There is a 1.2 cm x 0.9 cm x 0.9 cm soft tissue density in the fundal portion of the gallbladder with vascularity. Correlation with a CT scan is recommended for further evaluation. Multiple small hepatic cysts. Nonobstructive calculus in the left kidney. abd CT 3.31.25 1. No acute abdominopelvic finding. 2. Punctate nonobstructing left lower pole renal calculus. *BGI established 5.22.25 pt reports that he has been having abdominal issues for the past 6 years since he had prostate surgery. Pt reports he had 34 rounds of radiation and that is the area where he is now having constant cramping and discomfort. Pt reports he was referred for abnormal findings on recent imaging. [facility] Medical History Wears dentures Marijuana use History of echocardiogram Cancer Hepatitis Back pain Injury of back Injury of head and neck Syncope TIA (transient ischemic attack) History of diverticulitis Gastric reflux Smoker History of stress test Hx of reduction of nasal fracture Prostate cancer Left arm pain Chest pain Arm paresthesia, left Stroke HTN (hypertension) RLS (restless legs syndrome) Home Medications ???Medication ???Instructions ???Recorded ???Last Taken ???Type oxybutynin chloride 10 mg 5 mg PO DAILY 08/03/24 Unknown His tory tablet,extended release 24 hr Allergy/AdvReac Type Severity Reaction Status Date / Time Penicillins Allergy PT UNSURE Verified 08/25/24 13:47 OF REACTION Family History Father Colon cancer Grandfather Colon cancer Surgical History History of cardiac catheterization Hx of colonoscopy S/P prostatectomy S/P cervical spinal fusion Social History Smoking Status: Current every day smoker tobacco type: cigarettes alcohol intake: never substance use type: marijuana ROS Constitutional Constitutional: Denies fatigue, fever(s), poor appetite, weight gain or weight loss Gastrointestinal Gastrointestinal: Denies belching, bloating, change in bowel habits, change in stool character, chewing difficulty, coffee ground emesis, constipation, cramping, diarrhea, dyspepsia, dysphagia, early satiety, excessive flatus, fecal incontinence, heartburn, hematemesis, hematochezia, hemorrhoids, loose stools, melena, nausea, odynophagia, rectal bleeding, tenesmus, vomiting or weight changes Physical Exam Const alert, oriented x3, no apparent distress and healthy appearing General Appearance: cooperative GI normal to inspection, nondistended, normoactive bowel sounds, soft to palpation, non-tender and non- distended Percussion: normal to percussion Rectal Exam: deferred Assessment Plan Assessment/Plan (1) Abdominal pain: (2) History of colon polyps: PLAN: Assessment and Plan Assessment and Plan (1) Abdominal pain: Status: Acute (2) Abnormal finding on imaging: Status: Acute Plan: 69-year-old gentleman with history of prostate cancer Livingston score 7 status post prostatectomy and external [...] left kidney measures 11.9 cm 6.2 cm 5 (more content not included)...[facility]05-22-2025 Evaluation note* Diagnosis Onset Date Resolution Status Admit Date Abdominal pain acute August 03, 2024 2:50pm Abnormal finding on imaging acute August 03, 2024 2:50pm [facility] Work Phone: 1(393) 167-736305-22-2025 Evaluation note* Diagnosis Onset Date Resolution Status Admit Date Abdominal pain acute August 03, 2024 2:50pm Abnormal finding on imaging acute August 03, 2024 2:50pm Abdominal pain acute August 25, 2024 1:08pm History of colon polyps acute J 2024 1:08pm [facility] Work Phone: 1(214) 166-877204-01-2025 Radiology Diagnostic study note [facility] Imaging Services [address] [place] [address] Abdomen WITH IV Contrast MR#: [id number] Acct: [id number] Name: LETA CORONADO Rep #: [id number] : 1955 M 69 From: Kelly Pope MD PCP: SERGIO Alvarez Status: REG CLI Study:Abdomen WITH IV Contrast Date of Exam: 06/12/24 Exam# [id number] Ordering Dr: Sa jenny Bermudez PROCEDURE: ABDOMEN WITH IV CONTRAST 06/12/2024 REASON [...] left lower pole renal calculus. Reading Location: [id number] CC: SERGIO Bermudez ~ High Density Finishing Operator: Signed [facility]03-05-2025 Radiology Diagnostic study note [facility] Imaging Services [address] [place] [address] Abdomen Complete MR#: [id number] Acct: [id number] Name: LETA CORONADO Rep #: [id number] : 1955 M 69 From: Dannie Cloud MD PCP: SERGIO Alvarez Status: REG CLI Study:Abdomen Complete Date of Exam: 08/06 Exam# [id number] Ordering Dr: Sa Aidan roxana Wills PRODUCT TRAINER-Natasha PROCEDURE: ABDOMEN COMPLETE REASON FOR EXAM: Generalized abdominal pain. COMPARISON: None. FINDINGS: Liver: Grossly normal size and echotexture. Multiple cysts are seen in both lobes of the liver. Thelargest cyst measures 2.3 cm x 2.1 cm x 1.8 cm. This is in the right lobe of the liver in the septated. Gallbladder: There is a 1.2 cm x 0.9 cm x 0.9 cm heterogeneous soft tissue mass at the fundal portion of the gallbladder with vascularity. A neoplastic process should be ruled out. A gallbladder polyp is seen measuring 2 mm x2 mm x 3 mm. The gallbladder wall [...] calculus in the left kidney. Reading Location: [id number] CC: SERGIO Bermudez ~ High Density Finishing Operator: Signed [facility] Storm Samson [facility] Note Date/Time August 25, 2024 4:07 pm [facility] Medical Records Department [address] [place] [address] Anesthesia Postop Eval I 08/25/24 1606 MR#: [id number] Acct: [id number] Name: LETA CORONADO Rep #:[id number] : 1955 69 From: Storm Samson MD PCP: LIZY AlvarezC Status:REG SDC Y Race: C Location: [place] [address] Anesthesia: Postop Eval I Current Vital Signs Temperature: 98.8 F Pulse Rate: 69 Blood Pressure: 170/88 Respiratory Rate: 16 Pulse Ox: 99 Oxygen Delivery Method: Room Air Assessment Airway patent: Yes Spontaneous unlabored respirations: Yes nausea: No Vomiting: No Anesthesia Complication: No Fluid Hydration Crystalloid volume administer (ml): 200 Total IV fluid infused: 200 Progress Note Anesthesia document: Postop Eval 1 completed: Yes 08/25/241606 <Electronically signed by Storm Samson MD > Date _ Storm Samson MD Cosigner Signature: Date CC: ~ Signed [facility] Work Phone: Consult note Author Storm [facility] Note Date/Time August 25, 2024 4:48 pm [facility] Medical Records Department [address] [place] [address] Anesthesia Postop Eval II 08/25/24 1647 MR#: [id number] Acct: [id number] Name: LETA CORONADO Rep #:[id number] : 1955 69 From: Storm Samson MD PCP: SERGIO Alvarez Status:REG SDC Y Race: C Location: [place] [address] Anesthesia Postop Eval I Sum Postop Eval Completion status Anesthesia document: Postop Eval 1 completed: Yes Anesthesia Postop Eval I Summary Anesthesia Postop Eval I Summary: Anesthesia Postop Eval I: Assessment Summary Airway patent Yes 08/25/24 16:07 Spontaneous unlabored Yes 08/25/24 16:07 respirations Mental status nausea No 08/25/24 16:07 Vomiting No 08/25/24 16:07 Anesthesia Postop Eval I: Fluid Summary Crystalloid volume administer 200 08/25/24 16:07 (ml) Colloids volume administered ( ml) Blood Product volume administered (ml) Total IV fluid infused 200 08/25/24 16:07 Anesthesia Postop Eval I: Summary Notes Anesthesia Complication No 08/25/24 16:07 Anesthesia Complication Comment: Post-operative progress note Anesthesia: Postop Eval II Evaluation Mental status: Awake Pain Level: 0 nausea: Yes Vomiting: No 08/25/24 1648 <Electronically signed by Storm Samson MD > Date _ Storm Cordovaign Signature: Date CC: ~ Signed [facility] Work Phone: Evaluation noteNo assessment information available [facility] Work Phone: Reason for referral (narrative)No reason for referral information availableWMemorial [facility] Work Phone: Summary Purpose Family History Relationship Condition Age at Onset Recorded Date/T lenny father Malignant neoplasm of colon Unknown grandfather Malignant neoplasm of colon Unknown Advance Directives Advance Directive Response Recorded Date/ Time Advance Directives No April 20, 2016 12:10am Living Will No July 17, 2021 2: 37pm Power of Director Of Collections And Archives No July 17, 2021 2:37pm Advance Directive Response Recorded Date/ Time Advance Directives No April 20, 2016 12:10am Advance Directive Response Recorded Date/ Time Do you have a Healthcare Power of Director Of Collections And Archives? No August 24, 2024 8:31am Advance Directives No April 20, 2016 12:10am Chief Complaint and Reason for Visit Chief Complaint Admit Date HX OF DIVERTICULITIS/ RECENT STOMACH DOMINGO N May 17, 2024 9:55am Chief Complaint Admit Date HX OF DIVERTICULITIS/ RECENT STOMACH DOMINGO N May 17, 2024 9:55am ABD PAIN June 12, 2024 7:4 4am Chief Complaint Admit Date HX OF DIVERTICULITIS/ RECENT STOMACH DOMINGO N May 17, 2024 9:55am ABD PAIN June 12, 2024 7:[address]/US GALLBLADDER August 03 2:50pm GALLSTONES August 16, 2024 6:43a m Reason for Visit Admit Date Abdominal pain August 03, 2024 2:50p m Abnormal finding on imaging August 03 2:50pm Reason for Visit Admit Date Abdominal pain August 03, 2024 2:50p m Abnormal finding on imaging August 03 2:50pm Abdominal pain August 25, 2024 1:08 pm History of colon polyps August 25, 2024 1:08pm Additional Source Comments (unrecognized sect ion and content) No Status Records FoundNo Status Records FoundNo Status Records FoundNo Status Records Found INFORMATION SOURCE (unrecogn ized section and content) DATE CREATED AUTHOR 08/31/2017 [facility] DATE CREATED AUTHOR AUTHOR'S ORGANIZ ATION 03/13/2019 [facility] DATE CREATED AUTHOR AUTHOR'S ORGANIZ ATION 05/03/2024 [facility] DATE CREATED AUTHOR AUTHOR'S ORGANIZ ATION 08/25/2024 [facility] Goals (unrecognized section and content) Goals may be documented in a n alternate sectionGoals may be documented in an alternate sectionGoals may be documented in an alternate sectionGoals may be documented in an alternate sectionGoals may be documented in an alternate section Care Teams (unrecognized sec tion and content) Team Status: Active Member Role Status Dates SERGIO Hill Primary Care Provider Acti ve Team Status: Inactive Member Role Status Dates SERGIO Hill Primary Care Provider Acti ve Start: May 17, 2024 End: May 17, 2024 LIZY HillC Attending Provider Active Start: May 17, 2024 End: May 17, 2024 Miranda Bermudez NP-C Referring Provider Active Start: May 17, 2024 End: May 17, 2024 Team Status: Inactive Member Role Status Dates Miranda Bermudez NP-C Primary Care Provider Acti ve Start: June 12, 2024 End: June 12, 2024 LIZY HillC Attending Provider Active Start: June 12, 2024 End: June 12, 2024 Miranda Bermudez NP-C Referring Provider Active Start: June 12, 2024 End: June 12, 2024 Dr. Dave Almanza MD Other Provider Active Start: June 12, 2024 End: June 12, 2024 Team Status: Inactive Member Role Status Dates LIZY HillC Primary Care Provider Acti ve Start: August 03, 2024 End: August 03, 2024 Miranda Bermudez NP-C Referring Provider Active Start: August 03, 2024 End: August 03, 2024 Dr. Harrison Lara DO Attending Provider Active Start: August 03, 2024 End: August 03, 2024 Team Status: Inactive Member Role Status Dates LIZY HillC Primary Care Provider Acti ve Start: August 16, 2024 End: August 16, 2024 Dr. Harrison Lara DO Attending Provider Active Start: August 16, 2024 End: August 16, 2024 Dr. Harrison Lara DO Referring Provider Active Start: August 16, 2024 End: August 16, 2024 Team Status: Inactive Member Role Status Dates LIZY HillC Primary Care Provider Acti ve Start: August 25, 2024 End: August 25, 2024 Miranda Bermudez NP-C Referring Provider Active Start: August 25, 2024 End: August 25, 2024 Dr. Harrison Lara DO Attending Provider Active Start: August 25, 2024 End: August 25, 2024 Team Status: Active Member Role Status Dates LIZY HillC Primary Care Provider Acti ve Start: August 25, 2024 SERGIO Hill Referring Provider Active Start: August 25, 2024 Dr. Harrison Lara , DO Attending Provider Active Start: August 25, 2024 Dr. Harrison Lara , DO Other Provider Active St art: August 25, 2024 FOR RECORDS PERTAINING TO PATIENTS WHO [...] BE BASED ON THE PRIMARY CLINICAL RECORDS. [facility] [employer] provides no warranty or guarantee of the accuracy or completeness of information in this document.
--- NOTE | 2024-08-26 17:38 | EDS_ITS ---
HPI HPI - GI History of Present Illness Chief Complaint: Abd Pain Informant: patient and spouse/S.O. Abdominal Pain/Flank Pain Onset: Today and Yesterday Context: Gradual Onset Timing: Continuous Quality: Aching Location: Epigastric and RUQ Current Severity: Moderate Maximum Severity: Moderate Worsened by: Nothing Relieved by: Nothing Nausea/Vomiting/Emesis GI Symptom: Positive for Nausea; Negative for Vomiting Severity: Mild Diarrhea/Melena/Hematochezia GI Symptom: Negative for Diarrhea, Melena or Hematochezia Associated Symptoms Associated Symptoms: Negative for Dysuria, Frequency or Hematuria Narrative Narrative: 69-year-old male history of gallstones. Yesterday had ERCP done by Dr. Lara of GI. Patient is complaining of worse pain since that. Prior history of TIA and prostate cancer prior prostatectomy. 68 1 nausea no vomiting. No diarrhea or fever. Had mild constipation. Note denies dysuria or melena. Prior similar symptoms: No Recent Illness/Hospitalization: No PFSH PFSH Medical History Wears dentures Marijuana use History of echocardiogram Cancer Hepatitis Back pain Injury of back Injury of head and neck Syncope TIA (transient ischemic attack) History of diverticulitis Gastric reflux Smoker History of stress test Hx of reduction of nasal fracture Prostate cancer Left arm pain Chest pain Arm paresthesia, left Stroke HTN (hypertension) RLS (restless legs syndrome) Home Medications ?Medication ?Instructions ?Recorded ?Last Taken ?Type oxybutynin chloride 10 mg 5 mg PO DAILY 08/03/24 Unkno wn History tablet,extended release 24 hr Allergy/AdvReac Type Severity Reaction Status Date / Time Penicillins Allergy PT UNSURE Verified 08/26/24 14:49 OF REACTION Family History Father Colon cancer Grandfather Colon cancer Surgical History History of cardiac catheterization Hx of colonoscopy S/P prostatectomy S/P cervical spinal fusion Social History Smoking Status: Current every day smoker tobacco type: cigarettes alcohol intake: never substance use type: marijuana ROS ROS ED ROS Narrative Abdominal pain. Nausea. Constitutional Constitutional ED: Denies chills or fever(s) ENT ENT ED: Denies ear pain Cardiovascular Cardiovascular: Denies chest pain Respiratory/Chest Respiratory/Chest: Denies cough Gastrointestinal Gastrointestinal: Reports abdominal pain and nausea; Denies vomiting Genitourinary Genitourinary ED: Denies dysuria or hematuria Musculoskeletal Musculoskeletal: Denies arthralgias or back pain Integumentary Denies abscess Neurologic Neurologic: Denies headache(s) Psychiatric Psychiatric: Denies anxiety Endocrine Endocrinology: Denies polydipsia Hematologic/Lymphatic Hematologic/Lymphatic: Denies easy bleeding Allergic/Immunologic Allergic/Immunologic ED: Denies mouth swelling, tongue swelling or urticaria EXAM Physical Exam Narrative Exam Narrative: 69-year-old male sitting upright in bed. Vital signs are stable afebrile. He d oes not look septic or toxic. was in the room. H EENT exam pupils round react to light. Which was members. Neck nontender no JVD. No lymphadenopathy. Lungs clear to auscultation bilaterally. Heart regular rhythm rate about 80 no murmur. Chest wall ribs nontender. Abdomen soft nondistended normal bowel sounds peritoneal signs. Is periumbilical abdominal tenderness. No rebound guarding rigidity. No hernia or mass. No obstruction. No pulsatile mass. Right upper right lower quadrant unremarkable. Back nontender. Moving all 4 extremities. Nontender no edema. Neurologically is awake alert. Answering questions following commands. Const Vital Signs: 08/26/24 14:49 08/26/24 15:45 08/26/24 16:00 Temperature 98.3 F 97.8 F 97.8 F Temperature Source Oral Axillary Axillary Pulse Rate 96 84 66 Respiratory Rate 19 H 14 22 H Blood Pressure 173/107 H 173/93 H 152/77 H Blood Pressure Mean 129 119 102 Pulse Ox 99 100 97 Oxygen Delivery Method Room Air Room Air Room Air 08/26/24 17:00 Temperature 97.8 F Temperature Source Axillary Pulse Rate 83 Respiratory Rate 18 Blood Pressure 169/91 H Blood Pressure Mean 117 Pulse Ox 99 Oxygen Delivery Method Room Air Positive well nourished and well developed; Negative for cachectic, contractures or unkempt General Appearance ED: well developed; Negative for unkempt, cachectic, contractures or pallor Nutritional Appearance: Negative for cachectic HEENT Reports moist mucous membranes normocephalic and atraumatic Eyes PERRL and EOMs intact bilaterally Neck no lymphadenopathy, supple and no JVD General: Negative for tenderness Resp normal respiratory effort and clear to auscultation bilaterally Cardio regular rate, regular rhythm, S1 normal heart sound, S2 normal heart sound and no murmurs GI non-distended and no masses; Negative for non-tender GI Narrative: Periumbilical tenderness. Inspection: Negative for abdominal distention Auscultation: normoactive bowel sounds Palpation: soft and tender; Negative for guarding, rigid, hepatomegaly, splenomegaly, hernia, mass, pulsatile mass or rebound tenderness present Back/Spine no CVA tenderness General Back: Negative for CVA tenderness Cervical Spine: Negative for cervical spine tenderness Thoracic Spine / Upper Back: Negative for thoracic spinal tenderness Lumbar Spine / Lower Back: Negative for lumbar spinal tenderness Extremity full ROM General Extremety ED: Negative for edema or tenderness General Extremity: Negative for edema Neuro CN's II-XII intact bilaterally and moves all extremities Sensorium / Orientation: alert, oriented to person, oriented to place and oriented to time; Negative for orientation impaired Psych mental status grossly normal Appearance: Negative for unkempt Skin no wounds General Skin Exam: Negative for jaundice or pallor Lesions: no lesions Rashes: no rashes Trauma: Negative for abrasion Nails: Negative for discolored MDM MDM MDM Narrative Medical decision making narrative: 69-year-old male status post ERCP for gallstones. Complaining of periumbilical upper abdominal pain. Differential would include perforation, pancreatitis versus other etiologies. Labs are being obtained. Patient will be treated with IV morphine and Zofran. Spoke to the hospitalist the patient will be admitted. History & Record Review Discussion w/independent historian: Patient and Family Additional record(s) reviewed:: Prior inpatient record, Prior outpatient record, Prior ED visit and Prior labs Lab Data Attestation: I reviewed the patient's lab results. Lab results narrative: CBC white count of 10. H&H 15 and 44. Platelets 257. Electrolytes show sodium 136. Gap 14. Normal BUN and creatinine. Glucose 119. Liver enzymes normal. Lipase elevated 429. Labs: Laboratory Results - last 24 hr 08/26/24 14:57 WBC 10.2 RBC 4.90 Hgb 15.5 Hct 44.8 MCV 91.4 MCH 31.6 MCHC 34.6 RDW Std Deviation 46.0 H RDW Coeff of Randy 13.5 Plt Count 257 MPV 10.2 Immature Gran % (Auto) 0.200 Neut % (Auto) 42.7 L Lymph % (Auto) 13.9 L [place] % (Auto) 6.4 Eos % (Auto) 36.3 H Baso % (Auto) 0.5 Absolute Neuts (auto) 4.4 Absolute Lymphs (auto) 1.42 Nucleated RBC % 0 Platelet Estimate A RBC Morphology NORM C+C Sodium 136 Potassium 4.0 Chloride 101 Carbon Dioxide 20.7 L Anion Gap 14 BUN 15 Creatinine 0.83 Estim Creat Clear Calc 76.67 Est GFR (MDRD) Non-Af 95 BUN/Creatinine Ratio 17.6 Glucose 119 H Calcium 9.3 Total Bilirubin 0.71 AST 18 ALT 12 Alkaline Phosphatase 93 Total Protein 6.9 Albumin 4.4 Globulin 2.6 Albumin/Globulin Ratio 1.7 Lipase 429 H Discharge Plan Triage Chief Complaint: Abd Pain ED Provider: Abrahan Marsh Dx/Rx/DC Orders Clinical Impression: Acute pancreatitis, History of ERCP, History of gallstones Prescriptions: No Action oxybutynin chloride 10 mg tablet extended release 24hr 5 mg PO DAILY Primary Care Provider: Mary Bermudez Referrals: Mary Bermudez, G[facility] A[employer] SPECIALIST-[facility] [Primary Care Provider] - Print Language: Polish Disposition Disposition: [facility]
--- NOTE | 2024-08-26 17:45 | HP.PCM.HOS_ITS ---
[facility] - General General Date of Admission: 08/26/24 HPI Narrative LETA PIMENTEL, is a 69 M who presents to the hospital pain with epigastric abdominal pain that goes to his back as well as some nausea. He has been n.p.o. for 48 hours, yesterday he had an ERCP that demonstrated biliary papillary stenosis as well as filling defect consistent with a stone and sludge on the cholangiogram. He also has single localized biliary stricture that appeared benign, cells were sent for cytology. No stent was placed and the duct was swept. After the procedure he continued to have abdominal pain and presents today with an elevated lipase to 429 consistent with postprocedural pancreatitis. [facility] [place] Medical History Wears dentures Marijuana use History of echocardiogram Cancer Hepatitis Back pain Injury of back Injury of head and neck Syncope TIA (transient ischemic attack) History of diverticulitis Gastric reflux Smoker History of stress test Hx of reduction of nasal fracture Prostate cancer Left arm pain Chest pain Arm paresthesia, left Stroke HTN (hypertension) RLS (restless legs syndrome) Home Medications ?Medication ?Instructions ?Recorded ?Last Taken ?Type naproxen sodium 220 mg capsule 220 mg PO DAILY PRN zoe n 08/26/24 08/24/24 History (Aleve) oxybutynin chloride 5 mg 5 mg PO DAILY 08/26/2408/24 History tablet,extended release 24 hr Allergy/AdvReac Type Severity Reaction Status Date / Time Penicillins Allergy PT UNSURE Verified 08/26/24 14:49 OF REACTION Family History Father Colon cancer Grandfather Colon cancer Surgical History History of cardiac catheterization Hx of colonoscopy S/P prostatectomy S/P cervical spinal fusion Social History Smoking Status: Current every day smoker tobacco type: cigarettes alcohol intake: never substance use type: marijuana ROS Constitutional Constitutional: Denies chills, fatigue, fever(s) or malaise Eyes Eyes: Denies blurry vision ENT HEENT: Denies headache(s) or nasal discharge Cardiovascular Cardiovascular: Denies chest pain, dyspnea on exertion or syncope Respiratory/Chest Respiratory/Chest: Denies cough, shortness of breath at rest or shortness of breath with exertion Gastrointestinal Gastrointestinal: Reports abdominal pain and nausea; Denies constipation, diarrhea or vomiting Genitourinary Genitourinary: Denies dysuria Neurologic Neurologic: Denies focal weakness, numbness or tremor(s) Psychiatric Psychiatric: Denies anxiety or depression Vital Signs Vital Signs Vital Signs: 08/26/24 14:49 08/26/24 15:45 08/26/24 16:00 Temperature 98.3 F 97.8 F 97.8 F Temperature Source Oral Axillary Axillary Pulse Rate 96 84 66 Respiratory Rate 19 H 14 22 H Blood Pressure 173/107 H 173/93 H 152/77 H Blood Pressure Mean 129 119 102 Pulse Ox 99 100 97 Oxygen Delivery Method Room Air Room Air Room Air 08/26/24 17:00 Temperature 97.8 F Temperature Source Axillary Pulse Rate 83 Respiratory Rate 18 Blood Pressure 169/91 H Blood Pressure Mean 117 Pulse Ox 99 Oxygen Delivery Method Room Air Weight Weight: 140 lb 4.8 oz Body Mass Index (BMI) 19.0 Physical Exam Narrative General: Alert, Oriented x3, Cooperative, No apparent distress HEENT: Atraumatic, PERRLA, EOMI, Normocephalic Oral: Moist Mucosa Neck: Supple, No JVD Lungs: Diminished, Normal air movement, No rhonchi, No wheeze, No rales Cardiovascular: Regular rate, Regular Rhythm, Normal S1, Normal S2, No murmurs Abdomen: Soft, tender to the epigastric region with palpation, Non-Distended, No Hepato-splenomegaly Extremities: No edema, Capillary Refill Less than 3 Seconds Skin: No rashes, No breakdown Musculoskeletal: No Tenderness to Palpation of Joints or Extremities Neurological: No focal neurological deficits, Motor Exam 5/5 strength throughout, Sensory exam intact to light touch and pain Psych/Mental Status: Normal Affect, Appropriate Results Lab / Micro Data 08/26/24 14:57 08/26/24 14:57 Labs: Laboratory Results - last 24 hr 08/26/24 14:57: WBC 10.2, RBC 4.90, Hgb 15.5, Hct 44.8, MCV 91.4, MCH 31.6, MCHC 34.6, RDW Std Deviation 46.0 H, RDW Coeff of Randy 13.5, Plt Count 257, MPV 10.2, Immature Gran % (Auto) 0.200, Neut % (Auto) 42.7 L, Lymph % (Auto) 13.9 L, [place] % (Auto) 6.4, Eos % (Auto) 36.3 H, Baso % (Auto) 0.5, Absolute Neuts (auto) 4.4, Absolute Lymphs (auto) 1.42, Nucleated RBC % 0, Platelet Estimate A, RBC Morphology NORM C+C, Sodium 136, Potassium 4.0, Chloride 101, Carbon Dioxide 20.7 L, Anion Gap 14, BUN 15, Creatinine 0.83, Estim Creat Clear Calc 76.67, Est GFR (MDRD) Non-Af 95, BUN/Creatinine Ratio 17.6, Glucose 119 H, Calcium 9.3, Total Bilirubin 0.71, AST 18, ALT 12, Alkaline Phosphatase 93, Total Protein 6.9, Albumin 4.4, Globulin 2.6, Albumin/Globulin Ratio 1.7, Lipase 429 H Assessment & Plan Assessment/Plan (1) Acute pancreatitis: PLAN: Plan 1. Postprocedural acute pancreatitis ? N.p.o. ? IV fluids ? Pain management ? Will see how much of a diet he can tolerate tomorrow if his pain is improved. He did have a finding of choledocholithiasis yesterday so if there is no significant improvement we will need to consider further abdominal imaging with a right upper quadrant ultrasound ? Will recheck LFTs in the morning 2. Tobacco abuse ? He smokes about a pack a day ? Will continue with nicotine replacement DVT: Lovenox 55 minutes was spent on direct patient care, including documentation as well as chart review and collaboration with colleagues Charges/Coding Visit Charges Inpatient E&M: 93765 Init Hosp L2
[2024-08-26] MEDS: morphine 8 MG/ML Syringe 6 MG IV (17:55)
[2024-08-26] MEDS: Ondansetron 4 MG/2 ML Vial IV (17:55)
--- OUTSIDE RECORDS SUMMARY | 2024-08-26 19:11 | XMS RPT_ITS | CCD ---
Author Organization [facility] Team Providers Care Precision Lathe Operator Name Role Phone Martin, Navneet Teran Unavailable Unavailable Abrahan Day Unavailable Unavailable Dr. Ronny Dejesus Primary Care Provider Dr. Bryant Felix Attending Provider AIDAN, MIRANDA CO FOUNDER AND DIRECTOR Admitting Unavailable BERMUDEZ, MIRANDA CO FOUNDER AND DIRECTOR Attending Unavailable BERMUDEZ, MIRANDA CO FOUNDER AND DIRECTOR Primary Care Unavailable BERMUDEZ, MIRANDA CO FOUNDER AND DIRECTOR Attending Unavailable BERMUDEZ, MIRANDA CO FOUNDER AND DIRECTOR Primary Care Unavailable BERMUDEZ, MIRANDA CO FOUNDER AND DIRECTOR Admitting Unavailable Bermudez SENIOR PROJECT MANAGER ENGINEERING-C, Miranda Bucio Primary Care Provider Aidan SENIOR PROJECT MANAGER ENGINEERING-C, Miranda Bucio Attending Provider [phone] Aidan SENIOR PROJECT MANAGER ENGINEERING-C, Miranda Bucio Referring Provider Archie DEGROOT, Dr. [...] Unavailable Friend Dr. Harrison GA Other Provider Allergies Allergy Classification Reported Allergen(s) Allergy Type Date of Onset Reaction(s) Facility (7 sources) Penicillins; Translations: [Penicillins] Allergy to substance 2 PT UNSURE OF REACTION [facility] Medications Current Medications Medication Drug Class(es) Dates [...] Range Facility ERCP Reporton 08-25-2024 ERCP Report [facility] Medical Records Department [address] [place] [address] ERCP Report MR#: [id number] Acct: [id number] Name: LETA CORONADO Rep #: [id number] : 1955 69 From: Harrison Lara DO PCP: SERGIO Alvarez Status:REG [facility] [place] Name: Leta Coronado Procedure Date: 08/25/2024 [...] hours 22 minutes 25 seconds Findings: The front end software developer film was normal. The esophagus was successfully [...] 6 mm (more content not included)... Normal 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 Hx Hospitalization No 08/24/24 08:31 Any Problems [...] take am of surgery PONV PONV - adjunct writing instructor: PONV - adjunct writing instructor Female No 08/24/24 08:31 HX of Motion Sickness No 08/24/24 08:31 HX of N/V After Surgery No 08/24/24 08:31 Non-Smoker Yes 08/24/24 08:31 Duration of Surgery greater No 08/24/24 08:31 than 60 minutes Number of Risk Factors 1 08/24/24 08:31 PONV Score Low Risk 08/24/24 08:31 Height Weight Height Weight: Anesthesia: Height Weight Height 6 ft 07/22/21 08:20 Respiratory Assessment Respiratory Assessment - adjunct writing instructor: Respiratory Tract Infection Hx - adjunct writing instructor Hx Respiratory Tract Infection No 08/24/24 08:31 STOP Sleep Apnea STOP Sleep Apnea - adjunct writing instructor: STOP Sleep Apnea - adjunct writing instructor Hx Hypertension No 08/24/24 08:31 Hx Sleep [...] Tobacco Use History Tobacco Use History - adjunct writing instructor: Tobacco Use History - adjunct writing instructor Tobacco Use Smoking Status Current every day smoker 08/24/24 08:31 Hx Tobacco Use Yes: 1 ppd 08/24/24 08:31 Years Smoking Packs Smoked per Day Smoking Cessation Date was within the last 15 years Hx Smoking Cessation Date Hx Smoking Cessation No 08/24/24 08:31 Counseling Hematologic Medial History Hematologic Hx - adjunct writing instructor: 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 Normal [facility] Magnetic resonance imaging r eportOrdered By: Clark Ashby on 08-17-2024 Study report [facility] Imaging Services [address] [place], [place] [address] MRCP Abdomen without Contrast MR#: [id number] Acct: [id number] Name: LETA CORONADO Rep #: [id number] : 1955 M 69 From: Yasemin Ashby MD PCP: SERGIO Alvarez Status: REG CLI Study:MRCP Abdomen without Contrast Date of E xam: 08/16/24 Exam# [id number] Ordering Dr: Kenrikc Lara DO PROCEDURE: MRCP ABDOMEN WITHOUT CONTRAST, [...] 4. Additional description as above. Reading Location: [id number] CC: SERGIO Bermudez; Harrison Friend, DO ~ Teacher: Signed [facility] MRCP Abdomen without Contras ton 08-16-2024 MRCP Abdomen without Contrast [facility] Imaging Services [facility] [address] [place], [place] [id number] MRCP Abdomen without Contrast MR#: [id number] Acct: [id number] Name: LETA CORONADO Rep #: [id number] : 1955 M 69 From: Clark Ashby MD PCP: Miranda Bermudez, SILVERIO-C Status: REG CLI Study: MRCP Abdomen without Contrast Date of Exam: Exam# [id number] Ordering Dr: Harrison Lara DO PROCEDURE: MRCP [...] 4. Additional description as above. Reading Location: [id number] CC: SERGIO Bermudez; Harrison Lara DO Teacher: Signed Normal [facility] Gastroenterology Visit Repor ton 08-03-2024 Gastroenterology Visit Report [facility] Gastroenterology [address] [place] [address] OFFICE VISIT Date of Service: 08/03/24 MR#: [id number] Acct: [id number] Name: LETA CORONADO Rep #: [id number] : 1955 Provider: Harrison Lara DO Age/Sex: 69/M Location: [facility] Status: Signed Intake Vital Signs 07/22/21 08:20 [...] 69-year-old gentleman with history of prostate cancer [place] score 7 status post prostatectomy and external [...] 1.2 cm (more content not included)... Normal [facility] Abdomen WITH IV Contraston 0 06-12-2024 Abdomen WITH IV Contrast [facility] Imaging Services [address] [place] [id number] Abdomen WITH IV Contrast MR#: [id number] Acct: [id number] Name: LETA CORONADO Rep #: [id number] : 1955 69 From: Shonda Ford nd, MD PCP: SERGIO Alvarez Status: REG CLI Study: Abdomen WITH IV Contrast Date of Exam: 5 Exam# [id number] Ordering Dr: Miranda Bermudez PROCEDURE: ABDOMEN WITH [...] left lower pole renal calculus. Reading Location: [facility] CC: SERGIO Bermudez Teacher: Signed Normal [facility] Diagnostic total prostate sp ecific antigen (PSA) measurementOrdered By: Miranda Bermudez on 06-12-2024 Prostate Specific Antigen Total < 0.02 ng/mL 0.00-4.00 [facility] Comment on above: This test was [...] 05-15 PSA, DIAGNOSTIC < 0.02 Normal 0.00-4.00 [facility] Comment on above: Result Comment: This [...] values. Performed By: #### L [phone] #### [facility] [address] [place], [place], [address] Abdomen Completeon 5 Abdomen Complete [facility] Imaging Services [address] [place] [address] Abdomen Complete MR#: [id number] Acct: [id number] Name: LETA CORONADO Rep #: [id number] : 1955 M 69 From: Alvarez robertson MD PCP: SERGIO Alvarez Status: REG CLI Study: Abdomen Complete Date of Exam: 05/17/24 Exam# [id number] Ordering Dr: Miranda Bermudez SENIOR PROJECT MANAGER ENGINEERING-Natasha PROCEDURE: ABDOMEN COMPLETE REASON FOR EXAM: Generalized [...] calculus in the left kidney. Reading Location: [facility] CC: SERGIO Bermudez Teacher: Signed Normal [facility] CBC + DIFFon 05-02-2024 Baso # 0.01 x10EE3/UL Normal 0.00 - 0.10 [facility] Comment on above: Performed By: #### 2 [address]7027 #### [place] [address] Basophils/100 WBC (Bld) 0.2 % Normal 0.0 - 2.0 [facility] Comment on above: Performed By: #### 2 23047 #### [place] [address] CBC + DIFF Normal [facility] Comment on above: Result Comment: CBC- COMPLETE BLOOD COUNT Performed By: #### 2 56676 #### [place] [address] EO # 0.34 x10EE3/UL Normal 0.00 - 0.50 [facility] Comment on above: Performed By: #### 2 51702 #### [place] [address] Eosinophils/100 WBC (Bld) 4.5 % Normal 0.0 - 7.0 [facility] Comment on above: Performed By: #### 2 37514 #### [place] [address] Erythrocyte distribution width (RBC) [Ratio] 13.4 % Normal 12.0 - 15.6 [facility] Comment on above: Performed By: #### 2 09632 #### [place] [address] Hematocrit (Bld) [Volume fraction] 44.3 % Normal 40.0 - 52.0 [facility] Comment on above: Performed By: #### 2 23419 #### [facility],[address] [place], [place] [id number] Hemoglobin (Bld) [Mass/Vol] 14.9 g/dL Normal 13.0 - 17.5 [facility] Comment on above: Performed By: #### 2 63754 #### [facility],[address] [place], [place] [address] Lymph # 2.80 x10EE3/UL Normal 0.80 - 2.80 [facility] Comment on above: Performed By: #### 2 56258 #### [facility],[address] [place] [address] Lymphocytes/100 WBC (Bld) 37.2 % Normal 20.0 - 45.0 [facility] Comment on above: Performed By: #### 2 94223 #### [facility],[address] [place] [address] MANUAL DIFF N/A Normal [facility] Comment on above: Performed By: #### 2 38829 #### [facility],[address] [place] [address] MCH (RBC) [Entitic mass] 33 pg Normal 27 - 33 [facility] Comment on above: Performed By: #### 2 19043 #### [facility],[address] [place] [address]687 MCHC 34 X10 3 Normal 32 - 36 [facility] Comment on above: Performed By: #### 2 16828 #### [facility],[address] [place] [address]5685 MCV (RBC) [Entitic vol] 97 fL Normal 81 - 98 [facility] Comment on above: Performed By: #### 2 02732 #### [facility],[address] [place] [address] [place] # 0.52 x10EE3/UL Normal 0.20 - 1.00 [facility] Comment on above: Performed By: #### 2 72562 #### [facility],[address] [place] [address] MONOS % 6.9 % Normal 0.0 - 10.0 [facility] Comment on above: Performed By: #### 2 51485 #### [facility],[address] [place] [address] Morphology Dixon (Bld) [Interp] N/A Normal [facility] Comment on above: Performed By: #### 2 32317 #### [facility],[address] [place] [address] Neut # 3.85 x10EE3/UL Normal 1.50 - 7.10 [facility] Comment on above: Performed By: #### 2 79569 #### [facility],[address] [place] [address] Neutrophils/100 WBC (Bld) 51.3 % Normal 46.0 - 76.0 [facility] Comment on above: Performed By: #### 2 19755 #### [facility],[address] [place] [address] PLATELET 261 x10EE3/UL Normal 150 - 450 [facility] Comment on above: Performed By: #### 2 78036 #### [facility],[address] [place] [address] Platelet mean volume (Bld) [Entitic vol] 9.3 fL Normal 6.4 - 10.5 [facility] Comment on above: Result Comment: AUTO MATED DIFFERENTIAL Performed By: #### 2 17661 #### [facility],[address] [place] [address] RBC 4.58 x 10EE6/UL Normal 4.50 - 6.00 [facility] Comment on above: Performed By: #### 2 79537 #### [place] [address],[place] [address] WBC 7.5 x 10EE3/UL Normal 4.5 - 10.8 [facility] Comment on above: Performed By: #### 2 56071 #### [facility],[address] [place] [address] CMP with eGFRon 05-02-2024 AGE 69 years Normal [facility] Comment on above: Performed By: #### 2 10240 #### [facility],[address] [place] [address] Albumin [Mass/Vol] 4.2 g/dL Normal 3.4 - 5.0 [facility] Comment on above: Performed By: #### 2 58748 #### [facility],[address] [place] [address] 11791 Albumin/Globulin [Mass ratio] 1.6 {ratio} Normal 0.9 - 1.6 [facility] Comment on above: Performed By: #### 2 00574 #### [facility],[address] [place] [address] 10166 ALK PHOS 93 U/L Normal 46 - 116 [facility] Comment on above: Performed By: #### 2 36469 #### [facility],[address] [place] [address] 79974 ALT [Catalytic activity/Vol] 27 U/L Normal 16 - 63 [facility] Comment on above: Performed By: #### 2 31881 #### [facility],[address] [place] [address]239 Anion gap [Moles/Vol] 14 mmol/L Normal 10 - 20 [facility] Comment on above: Performed By: #### 2 57082 #### [facility],[address] [place] [address] 09997 AST [Catalytic activity/Vol] 14 U/L Low 15 - 37 [facility] Comment on above: Performed By: #### 2 24137 #### [facility],[address] [place] [address] 35978 B/C RATIO 15 ratio Normal 0 - 30 [facility] Comment on above: Performed By: #### 2 23250 #### [facility],[address] [place] [address] 11856 Bilirubin [Mass/Vol] 0.2 mg/dL Normal 0.2 - 1.0 [facility] Comment on above: Performed By: #### 2 21822 #### [facility],[address] [place] [address] 79171 Calcium [Mass/Vol] 9.7 mg/dL Normal 8.5 - 10.1 [facility] Comment on above: Performed By: #### 2 32212 #### [facility],[address] [place] [address] 12016 Chloride [Moles/Vol] 107 mmol/L Normal 98 - 107 [facility] Comment on above: Performed By: #### 2 79206 #### [facility],[address] [place] [address]1112 CMP with eGFR Normal [facility] Comment on above: Result Comment: COMP REHENSIVE METABOLIC PANEL Performed By: #### 2 38143 #### [facility],[address] [place] [address] 52992 CO2 [Moles/Vol] 30.1 mmol/L Normal 21.0 - 32.0 [facility] Comment on above: Performed By: #### 2 23922 #### [facility],[address] [place] [address] 76904 Creatinine [Mass/Vol] 0.91 mg/dL Normal 0.70 - 1.30 [facility] Comment on above: Performed By: #### 2 64431 #### [facility],[address] [place] [address]18 GFR/1.73 sq M.predicted among non-blacks MDRD (S/P/Bld) [Vol rate/Area] mL/min/{1.73_m2} Normal 60 - 999 [facility] Comment on above: Performed By: #### 2 54094 #### [address] [address] Result Comment: ACCO RDING TO THE NATIONAL KIDNEY DISEASE EDUCATION PROGRAM(NKDE), A NORMAL eGFR IS A VALUE GREATER THAN OR EQUAL TO 60 ML/MIN/1.73 SQ METERS. CHRONIC KIDNEY DISEASE: <60mL/MIN/1.73 SQ METERS KIDNEY FAILURE: <15mL/MIN/1.73 SQ METERS THIS TEST SHOULD ONLY BE USED FOR PATIENTS 18 YEARS OF AGE AND OLDER. Globulin (S) [Mass/Vol] 2.6 g/dL Normal 1.5 - 3.8 [facility] Comment on above: Performed By: #### 2 35351 #### [address] [address] Glucose [Mass/Vol] 90 mg/dL Normal 74 - 106 [facility] Comment on above: Performed By: #### 2 65245 #### [address] [address] Potassium [Moles/Vol] 4.2 mmol/L Normal 3.5 - 5.1 [facility] Comment on above: Performed By: #### 2 55436 #### [address] [address] Protein [Mass/Vol] 6.8 g/dL Normal 6.4 - 8.2 [facility] Comment on above: Performed By: #### 2 31617 #### [address] [address] Sodium [Moles/Vol] 147 mmol/L High 136 - 145 [facility] Comment on above: Performed By: #### 2 98139 #### [address] [address] Urea nitrogen [Mass/Vol] 14 mg/dL Normal 7 - 18 [facility] Comment on above: Performed By: #### 2 18811 #### [facility],[address] [place] [address]30 LIPID PROFILEon 05-02-2024 Cholesterol [Mass/Vol] 111 mg/dL Normal 0 - 240 [facility] Comment on above: Performed By: #### 2 97171 #### [facility],[address] [place] [address] 43387 Cholesterol in HDL [Mass/Vol] 39 mg/dL Low 40 - 60 [facility] Comment on above: Performed By: #### 2 19705 #### [facility],[address] [place] [address] 63475 Cholesterol in LDL [Mass/Vol] 57 mg/dL Normal 0 - 129 [facility] Comment on above: Performed By: #### 2 32119 #### [facility],[address] [place] [address]80 Cholesterol.total/Chol esterol in HDL [Mass ratio] 2.8 {ratio} Normal 0.0 - 5.0 [facility] Comment on above: Performed By: #### 2 46925 #### [facility],[address] [place] [address]236 Lipid 1996 panel Normal [facility] Comment on above: Result Comment: LIPI D PROFILE Performed By: #### 2 01857 #### [facility],[address] [place] [address]74 Triglyceride [Mass/Vol] 73 mg/dL Normal 0 - 150 [facility] Comment on above: Performed By: #### 2 57652 #### [facility],[address] [place] [address]1979 No Panel Informationon 07-17 Prostate Specific Antigen Screen < 0.01 ng/mL 0.00-4.00 [facility] Work Phone: Comment on above: This test was perfor med using the TPSA assay method for the[facility] chemistry system. Values obtained with differentassay methods cannot be used interchangably.When changing PSA assays in the course of monitoring apatient, additional sequential testing should be carriedout to confirm baseline values. TESTOST,FREE AND TOTALon TESTOSTERONE TOT.LC/MS/MS 903 ng/dL Normal 250-1100 [facility] Comment on above: Result Comment: Men with clinically significant hypogonadal symptoms and testosterone values repeatedly in the range of the 200-300 ng/dL or less, may benefit from testosterone treatment after adequate risk and benefits counseling. For additional information, please refer to http://education.Picanova/faq/ RbnbtMbpbyzvjncgqBWEDFGWPC478 (This link is being provided for informational/ educational purposes only.) This test was developed and its analytical performance characteristics have been determined by [employer] [place], [place]. It has not been cleared or approved by the U.S. Food and Drug Administration. This assay has been validated pursuant to the CLIA regulations and is used for clinical purposes. Performed By: #### T ESFT #### [facility] [address] [place], [place] TESTOSTERONE,FREE 119.2 pg/mL Normal 35.0-155.0 [facility] Comment on above: Result Comment: This test was developed and its analytical performance characteristics have been determined by [employer] [place]. It has not been cleared or approved by the U.S. Food and Drug Administration. This assay has been validated pursuant to the CLIA regulations and is used for clinical purposes. Performed By: #### T ESFT #### [employer] [address] [place], [place] CBC AND DIFFERENTIALon 03-07 Basophils (Bld) [#/Vol] 0.00 10*3/uL Normal 0.00 - 0.10 [facility] Comment on above: Performed By: #### C BCDF #### [place] [address] [place] [address] Basophils/100 WBC (Bld) 1.1 % Normal 0.0 - 2.0 [facility] Comment on above: Performed By: #### C BCDF #### [address] [address] Eosinophils (Bld) [#/Vol] 0.10 10*3/uL Normal 0.00 - 0.70 [facility] Comment on above: Performed By: #### C BCDF #### [address] [address] Eosinophils/100 WBC (Bld) 1.6 % Normal 0.0 - 6.0 [facility] Comment on above: Performed By: #### C BCDF #### [address] [address] Erythrocyte distribution width (RBC) [Ratio] 14.1 % Normal 11.5 - 14.5 [facility] Comment on above: Performed By: #### C BCDF #### [address] [address] Hematocrit (Bld) [Volume fraction] 44.1 % Normal 41.0 - 52.0 [facility] Comment on above: Performed By: #### C BCDF #### [address] [address] Hemoglobin (Bld) [Mass/Vol] 14.6 g/dL Normal 13.5 - 17.5 [facility] Comment on above: Performed By: #### C BCDF #### [address] [address] Lymphocytes (Bld) [#/Vol] 0.90 10*3/uL Low 1.20 - 4.80 [facility] Comment on above: Performed By: #### C BCDF #### [address] [address] Lymphocytes/100 WBC (Bld) 19.1 % Normal 13.0 - 44.0 [facility] Comment on above: Performed By: #### C BCDF #### [address] [address] MCHC (RBC) [Mass/Vol] 33.2 g/dL Normal 32.0 - 36.0 [facility] Comment on above: Performed By: #### C BCDF #### [address] [place] [address] MCV (RBC) [Entitic vol] 99 fL Normal 80 - 100 [facility] Comment on above: Performed By: #### C BCDF #### [address] [address] Monocytes (Bld) [#/Vol] 0.40 10*3/uL Normal 0.10 - 1.00 [facility] Comment on above: Performed By: #### C BCDF #### [address] [address] Monocytes/100 WBC (Bld) 8.9 % Normal 2.0 - 10.0 [facility] Comment on above: Performed By: #### C BCDF #### [address] [address] Neutrophils (Bld) [#/Vol] 3.10 10*3/uL Normal 1.20 - 7.70 [facility] Comment on above: Performed By: #### C BCDF #### [address] [address] Neutrophils/100 WBC (Bld) 69.3 % Normal 40.0 - 80.0 [facility] Comment on above: Performed By: #### C BCDF #### [address] [address] Nucleated RBC/100 WBC (Bld) [Ratio] 0.1 /100 WBC Normal [facility] Comment on above: Performed By: #### C BCDF #### [address] [address] Platelets (Bld) [#/Vol] 214 10*3/uL Normal 150 - 450 [facility] Comment on above: Performed By: #### C BCDF #### [address] [address] RBC (Bld) [#/Vol] 4.47 x10E12/L Low 4.50 - 5.90 [facility] Comment on above: Performed By: #### C BCDF #### [address] [address] WBC (Bld) [#/Vol] 4.5 10*3/uL Normal 4.4 - 11.3 [facility] Comment on above: Performed By: #### C BCDF #### [address] [address] TSHon 03-07-2019 TSH Qn 0.72 m[IU]/L Normal 0.44 - 3.98 [facility] Comment on above: Result Comment: TSH testing is performed using different testing methodology at [facility] than at other [facility]. Direct result comparisons should only be made within the same method. Performed By: #### T SH2 #### [address] [address] Vital Signs Date Time Vital Sign Value Performing Clinician Imani kramer 08-25-2024 16:26-0400 Body temperature 97.7 [degF] Miranda Bermudez SENIOR PROJECT MANAGER ENGINEERING-C Work Phone: [facility] 08-25-2024 16:26-0400 Diastolic blood pressure 86 mm[Hg] Miranda Bermudez SENIOR PROJECT MANAGER ENGINEERING-C Work Phone: [facility] 08-25-2024 16:26-0400 Heart rate 69 /min Miranda Aidan SENIOR PROJECT MANAGER ENGINEERING-C Work Phone: [facility] 08-25-2024 16:26-0400 Respiratory rate 16 /min Miranda Bermudez SENIOR PROJECT MANAGER ENGINEERING-C Work Phone: [facility] 08-25-2024 16:26-0400 SaO2% (BldA) [Mass fraction] 100 % Miranda Bermudez SENIOR PROJECT MANAGER ENGINEERING-C Work Phone: [facility] 08-25-2024 16:26-0400 Systolic blood pressure 164 mm[Hg] Miranad Aidan SENIOR PROJECT MANAGER ENGINEERING-C Work Phone: [facility] 08-25-2024 13:48-0400 Body height 182.88 cm Miranda Aidan SENIOR PROJECT MANAGER ENGINEERING-C Work Phone: [facility] 08-25-2024 13:48-0400 Body mass index (BMI) [Ratio] 19.1 kg/m2 Miranda Bermudez SENIOR PROJECT MANAGER ENGINEERING-C Work Phone: [facility] 08-25-2024 13:48-0400 Body weight 64 kg Miranda LEYVA Work Phone: [facility] 07-22-2021 09:28-0400 Body temperature 96.9 [degF] Dr. Ronny Dejesus Work Phone: [facility] Work Phone: 07-22-2021 09:28-0400 Diastolic blood pressure 93 mm[Hg] Dr. Ronny Dejesus Work Phone: [facility] Work Phone: 07-22-2021 09:28-0400 Heart rate 64 /min Dr. Ronny Dejesus Work Phone: [facility] Work Phone: 07-22-2021 09:28-0400 Respiratory rate 16 /min Dr. Ronny Dejesus Work Phone: [facility] Work Phone: 07-22-2021 09:28-0400 SaO2% (BldA) [Mass fraction] 100 % Dr. Ronny Dejesus Work Phone: [facility] Work Phone: 07-22-2021 09:28-0400 Systolic blood pressure 155 mm[Hg] Dr. Ronny Dejesus Work Phone: [facility] Work Phone: 07-22-2021 08:20-0400 Body height 182.[address] Ronny Dejesus Work Phone: [facility] Work Phone: 07-22-2021 08:20-0400 Body mass index (BMI) [Ratio] 20.4 kg/m2 Dr. Ronny Dejesus Work Phone: [facility] Work Phone: 07-22-2021 08:20-0400 Body weight 68.[address] Ronny Dejesus Work Phone: [facility] Work Phone: Encounters Encounter Date Encounter Type Care Provider Facility Start: 08-25-2024 Non-patient / Non-visit Harrison Lara DO -[facility] Start: 08-25-2024 End: 08-25-2024 Admission to same day surgery center Harrison Lara DO -Endoscopy Work Phone: Start: 08-25-2024 End: 08-25-2024 ambulatory Miranda Aidan Facility:[facility] Start: 08-16-2024 End: 08-16-2024 ambulatory Miranda Houghchristiana Bermudez SENIOR PROJECT MANAGER ENGINEERING-C Work Phone: [facility] Work Phone: Start: 08-16-2024 End: 08-16-2024 Patient encounter procedure Harrison Lara DO -[facility] Work Phone: Start: 08-16-2024 End: 08-16-2024 ambulatory Miranda Bermudez Facility:[facility] Start: 08-03-2024 End: 08-03-2024 Patient encounter procedure Harrison Lara DO -[facility] Work Phone: Start: 08-03-2024 End: 08-03-2024 ambulatory Miranda Bermudez Facility:[facility] Start: 06-12-2024 End: 06-12-2024 ambulatory Miranda Bermudez SENIOR PROJECT MANAGER ENGINEERING-C Work Phone: [facility] Work Phone: Start: 06-12-2024 End: 06-12-2024 Patient encounter procedure Miranda Bermudez SENIOR PROJECT MANAGER ENGINEERING-C -Cat Scan, [facility] Work Phone: Start: 06-12-2024 End: 06-12-2024 ambulatory Dave Almanza Facility:[facility] Start: 05-17-2024 End: 05-17-2024 ambulatory Miranda Bucio Aidan SENIOR PROJECT MANAGER ENGINEERING-C Work Phone: [facility] Work Phone: Start: 05-17-2024 End: 05-17-2024 Patient encounter procedure Miranda Bermudez SERGIO -Ultrasound, [facility] Work Phone: Start: 05-17-2024 End: 05-17-2024 ambulatory Miranda Bermudez Facility:[facility] Start: 05-02-2024 End: 05-02-2024 ambulatory MIRANDA BERMUDEZ [facility] Start: 10-21-2023 End: 10-21-2023 ambulatory MIRANDA BERMUDEZ [facility] Start: 07-22-2021 Non-patient / Non-visit Dr. Ronny Dejesus Work Phone: [facility] Start: 07-22-2021 End: 07-22-2021 Admission to same day surgery center Dr. Ronny Dejesus Work Phone: [facility] Start: 07-17-2021 End: 07-17-[address] [facility] Start: 08-20-2017 Ambulatory Navneet Martin Facility:[facility] [place] Procedures Date Procedure Procedure Detail Performing Clinician Start: 08-25-2024 Fluoroscopic guidance Miranda Bermudez SENIOR PROJECT MANAGER ENGINEERING-C Work Phone: Start: 08-25-2024 Endoscopic retrograde cholangiopancreatography Miranda Bermudez SENIOR PROJECT MANAGER ENGINEERING-C Work Phone: Start: 08-16-2024 Magnetic resonance cholangiopancreatography Miranda Bermudez SENIOR PROJECT MANAGER ENGINEERING-C Work Phone: Start: 06-12-2024 Assay of prostate specific antigen total Miranda Bermudez SENIOR PROJECT MANAGER ENGINEERING-C Work Phone: Comment on above: This test [...] CT of abdomen with contrast Miranda Bermudez SENIOR PROJECT MANAGER ENGINEERING-C Work Phone: Start: 05-17-2024 CT of abdomen Miranda LEYVA Work Phone: Start: 07-22-2021 End: 07-22-[address] Ronny Dejesus Work Phone: Start: 07-22-[address] Ronny Dejesus Work Phone: Plan of Treatment Date Care Activity Detail Author Start: 08-25-2024 Endoscopic retrograde cholangiopancreatography ERCP Biliary/Pancreas [facility] Start: 08-25-2024 RF Guidance for endoscopy of Biliary ducts and Pancreatic duct-- W contrast retrograde [facility] Start: 08-25-[address] [facility] Patient referral [facility] Work Phone: Payers Date Payer Category Payer Self-pay [id number] 2024 Medicare [id number] 2017 Private Health Insurance 2015 Medicare [id number] 1955 Unknown [id number] 1955 Unknown [id number] Medicare [id number] Unknown SELF PAY INSURANCE [id number] Unknown [id number] Unknown [id number] Unknown [id number] Unknown [id number] Unknown [id number] Unknown [id number] Social History Date Type Detail Facility Start: 07-17-2021 [facility] Work Phone: Start: 04-20-2016 Occasional [facility] Start: 04-20-2016 None [facility] Start: 04-20-2016 Alone [facility] Start: 02-01-2019 Cigarettes [facility] Start: 1955 Sex Assigned At Male [facility] Start: 07-24-2021 End: 08-24-2024 Tobacco smoking status NHIS Smokes tobacco daily (finding) [facility] Start: 05-29-2024 End: 06-14-2024 Sex Male (finding) [facility] Medical Equipment Procedure Code Equipment Code Equipment Origin al Text Equipment Identifier Dates PHOENIXHEMLISAANUJA DailyLook FDA Start: 11-17-2017 CLIPHEMLISAANUJA DailyLook FDA Start: 11-17-2017 PHOENIXHEMESAU ROMAN DailyLook FDA Start: 11-17-2017 PHOENIXHEMLISAANUJA ROMAN DailyLook FDA Start: 11-17-2017 PHOENIXHEMLISAANUJA ROMAN TalkSessionCK FDA Start: 11-17-2017 PHOENIXHEMLISAANUJA LG TalkSessionCK FDA Start: 11-17-2017 PHOENIXHEMESAU ROMAN TalkSessionCK FDA Start: 11-17-2017 PHOENIXHEMESAU LG WECK FDA Start: 11-17-2017 PHOENIXHEMLISAANUJA LG WECK FDA Start: 11-17-2017 CLIPHEMLISAANUJA LG WECK FDA Start: 11-17-2017 PHOENIXHEMLISAANUJA LG WECK FDA Start: 11-17-2017 PHOENIXHEMESAU LG WECK FDA Start: 11-17-2017 PHOENIXHEMESAU ROMAN WECK FDA Start: 11-17-2017 PHOENIXHEMLISAANUJA ROMAN WECK FDA Start: 11-17-2017 PHOENIXHEMLISAANUJA ROMAN TalkSessionCK FDA Start: 11-17-2017 PHOENIXHEMESAU ROMAN TalkSessionCK FDA Start: 11-17-2017 NEO GARIBAY LG FDA Start: 11-17-2017 NEO GARIBAY LG FDA Start: 11-17-2017 Goals Date Patient Goal Desired Activity /State Mental Status Date Assessment Result Facility 08-25-2024 Cognitive function Voice/Name [facility] Work Phone: 07-22-2021 Cognitive function Voice/Name [facility] Work Phone: Clinical Notes 05-17-2024 to 08-25-2024 Note Date & Type Note Facility 08-25-[address] [facility] 08-25-[address] [facility] 08-25-2024 History and physical note Note Date/Time August 25, 2024 1:55pm [facility] Medical Records Department [address] [place] [address] History & Physical Exam 08/25/24 1323 MR#: [id number] Acct: [id number] Name: LETA CORONADO Rep #:[id number] : 1955 69 From: Harrison Lara DO PCP: SERGIO Alvarez [place] [facility] Location: [place] [address] HPI - General General Date of Admission: [...] referred for abnormal findings on recent imaging. [facility] Medical History Wears dentures Marijuana use History [...] CC: SERGIO Bermudez; Harrison Lara DO~ Signed [facility] Work Phone: 1(361) 489-674906-13-2025 Procedure note [facility] Medical Records Department [address] [place] [address] ERCP Report MR#: [id number] Acct: [id number] Name: LETA CORONADO Rep #:[id number] : 1955 69 From: Harrison Lara DO PCP: SERGIO Alvarez Status:REG [facility] Patient Name: Leta Coronado Procedure Date: 08/25/2024 [...] hours 22 minutes 25 seconds Findings: The front end software developer film was normal. The esophagus was successfully [...] main duct. Procedure Code(s): --- Professional --- 76898, Endoscopic retrograde cholangiopancreatography (ERCP); with removal of calculi/debris from biliary/pancreatic duct(s) 03409, Endoscopic retrograde cholangiopancreatography (ERCP); with sphincterotomy/papillotomy 47151, 26, Endoscopic catheterization of the biliary ductal system, radiological supervision and interpretation CPT copyright 2021 [employer]. All rights reserved. The codes documented in this report are preliminary and upon custom designer review may be revised to meet current compliance requirements. Harrison Lara DO 08/25/2024 3:43:52 PM This report has been signed electronically. Number of Addenda: 0 Note Initiated On: 08/25/2024 2:41 PM 08/25/24 1544 Date _ Harrison Andrews Signature: Date (if indicated) CC: SERGIO Bermudez; Harrison Lara DO ~ Date Dictated: 08/25/24 1441 Date Transcribed: Teacher: RF Signed [facility]06-13-2025 Procedure note [facility] Medical Records Department [address] [place] [address] Operative Report - CC Letter MR#: [id number] Acct: [id number] Name: LETA CORONADO Rep #:[id number] : [...] DO Cosigner Signature: Date (if indicated) CC: SENIOR PROJECT MANAGER ENGINEERING-Natasha Terry Marco, ~ Date Dictated: 08/25/24 1441 Date Transcribed: Teacher: RF Signed [facility]06-13-2025 Consult note Author Storm Samson [facility] Note Date/Time August 25, 2024 1:43 pm [facility] Medical Records Department [address] [place] [address] Pre-Anesthesia Evaluation 08/25/24 1324 MR#: [id number] Acct: [id number] Name: LETA CORONADO Rep #:[id number] : 1955 69 From: Storm Samson MD PCP: SERGIO Alvarez Status:REG SDC Y Race: C Location: [place] [address] 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] Tobacco Use History Tobacco Use History - adjunct writing instructor: Tobacco Use History - adjunct writing instructor Tobacco Use Smoking Status Current every day smoker 08/24/24 08:31 Hx Tobacco Use Yes: 1 ppd 08/24/24 08:31 Years Smoking Packs Smoked per Day Smoking Cessation Date was within the last 15 years Hx Smoking Cessation Date Hx Smoking Cessation No 08/24/24 08:31 Counseling Hematologic Medial History Hematologic Hx - adjunct writing instructor: 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 Work Phone: 1(744) 810-462206-13-2025 History and physical note [facility] Medical Records Department [address] [place] [address] History & Physical Exam 08/25/24 1323 MR#: [id number] Acct: [id number] Name: LETA CORONADO Rep #:[id number] : 1955 69 From: Harrison Lara DO PCP: SERGIO Alvarez [place] [facility] Location: [place] [address] HPI - General General Date of Admission: [...] referred for abnormal findings on recent imaging. [facility] Medical History Wears dentures Marijuana use History [...] 08/25/24 1355 Cosigner Signature (if applicable): CC: SENIOR PROJECT MANAGER ENGINEERINGZofia Bermudez; Harrison Friend, DO~ Signed [facility]06-13-2025 Consult note [facility] Medical Records Department [address] [place] [address] Pre-Anesthesia Evaluation 08/25/24 1324 MR#: [id number] Acct: [id number] Name: LETA CORONADO Rep #:[id number] : 1955 69 From: Storm Samson MD PCP: SERGIO Alvarez Status:REG SDC Y Race: C Location: [place] [address] 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] Tobacco Use History Tobacco Use History - adjunct writing instructor: Tobacco Use History - adjunct writing instructor Tobacco Use Smoking Status Current every day smoker 08/24/24 08:31 Hx Tobacco Use Yes: 1 ppd 08/24/24 08:31 Years Smoking Packs Smoked per Day Smoking Cessation Date was within the last 15 years Hx Smoking Cessation Date Hx Smoking Cessation No 08/24/24 08:31 Counseling Hematologic Medial History Hematologic Hx - adjunct writing instructor: 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06-13-2025 [facility] Medical Records Department [address] [place] [address] History Physical Exam 08/25/24 1323 MR#: [id number] Acct: [id number] Name: LETA CORONADO Rep #: [id number] : 1955 69 From: Harrison Lara DO PCP: SERGIO Alvarez [place] [facility] Location: [place] [address] HPI - General General Date of Admission: [...] referred for abnormal findings on recent imaging. [facility] Medical History Wears dentures Marijuana use History [...] 69-year-old gentleman with history of prostate cancer Berkeley score 7 status post prostatectomy and external [...] cm 6.2 cm 5 (more content not included)...[facility]05-22-2025 Evaluation note* Diagnosis Onset Date Resolution Status Admit Date Abdominal pain acute August 03, 2024 2:50pm Abnormal finding on imaging acute August 03, 2024 2:50pm [facility] Work Phone: 1(246) 330-720305-22-2025 Evaluation note* Diagnosis Onset Date Resolution Status Admit Date Abdominal pain acute August 03, 2024 2:50pm Abnormal finding on imaging acute August 03, 2024 2:50pm Abdominal pain acute August 25, 2024 1:08pm History of colon polyps acute J 2024 1:08pm [facility] Work Phone: 1(403) 773-353604-01-2025 Radiology Diagnostic study note [facility] Imaging Services [address] [place] [address] Abdomen WITH IV Contrast MR#: [id number] Acct: [id number] Name: LETA CORONADO Rep #: [id number] : 1955 M 69 From: Kelly Pope MD PCP: SERGIO Alvarez Status: REG CLI Study:Abdomen WITH IV Contrast Date of Exam: 06/12/24 Exam# [id number] Ordering Dr: Sa jenny Bermudez PROCEDURE: ABDOMEN [...] left lower pole renal calculus. Reading Location: [id number] CC: SERGIO Bermudez ~ Teacher: Signed [facility]03-05-2025 Radiology Diagnostic study note [facility] Imaging Services [address] [place] [address] Abdomen Complete MR#: [id number] Acct: [id number] Name: LETA CORONADO Rep #: [id number] : 1955 M 69 From: Dannie Cloud MD PCP: SERGIO Alvarez Status: REG CLI Study:Abdomen Complete Date of Exam: 08/06 Exam# [id number] Ordering Dr: Sa Aidan roxana Wills SENIOR PROJECT MANAGER ENGINEERING-Natasha PROCEDURE: ABDOMEN COMPLETE REASON FOR EXAM: Generalized [...] calculus in the left kidney. Reading Location: [id number] CC: SERGIO Bermudez ~ Teacher: [facility]igned [facility] Author Storm Samson [facility] Note Date/Time August 25, 2024 4:07 pm [facility] Medical Records Department [address] [place] [address] Anesthesia Postop Eval I 08/25/24 1606 MR#: [id number] Acct: [id number] Name: LETA CORONADO Rep #:[id number] : 1955 69 From: Storm Samson MD PCP: LIZY AlvarezC Status:REG SDC Y Race: C Location: [place] [address] Anesthesia: Postop Eval I Current Vital Signs [...] MD Cosigner Signature: Date CC: ~ Signed [facility] Work Phone: Consult note Author Storm [facility] Note Date/Time August 25, 2024 4:48 pm [facility] Medical Records Department [address] [place] [address] Anesthesia Postop Eval II 08/25/24 1647 MR#: [id number] Acct: [id number] Name: LETA CORONADO Rep #:[id number] : 1955 69 From: Storm Samson MD PCP: SERGIO Alvarez Status:REG SDC Y Race: C Location: [place] [address] Anesthesia Postop Eval I Sum Postop Eval [...] Storm Cordovaign Signature: Date CC: ~ Signed [facility] Work Phone: Evaluation noteNo assessment information available [facility] Work Phone: Reason for referral (narrative)[facility] for [facility] Work Phone: Summary Purpose Family History Relationship Condition Age at Onset Recorded Date/T lenny father Malignant neoplasm of colon Unknown grandfather Malignant neoplasm of colon Unknown Advance Directives Advance Directive Response Recorded Date/ Time Advance Directives No April 20, 2016 12:10am Living Will No July 17, 2021 2: 37pm Power of Office Cleaner No July 17, 2021 2:37pm Advance Directive Response Recorded Date/ Time Advance Directives No April 20, 2016 12:10am Advance Directive Response Recorded Date/ Time Do you have a Healthcare Power of Office Cleaner? No August 24, 2024 8:31am Advance Directives [...] section and content) DATE CREATED AUTHOR 08/31/2017 [facility] DATE CREATED AUTHOR AUTHOR'S ORGANIZ ATION 03/13/2019 [facility] DATE CREATED AUTHOR AUTHOR'S ORGANIZ ATION 05/03/2024 [facility] DATE CREATED AUTHOR AUTHOR'S ORGANIZ ATION 08/25/2024 [facility] Goals (unrecognized section and content) Goals may [...] BE BASED ON THE PRIMARY CLINICAL RECORDS. [facility] [employer] provides no warranty or guarantee of the accuracy or completeness of information in this document.
--- NOTE | 2024-08-26 19:25 | CASEMGMT ---
Care Management Face to Face with patient for initial transition planning/care coordination assessment in the ED.? This insurance writer introduced self and role at [facility]. Patient alert and oriented. Patient willing to participate in assessment and is able to answer all questions appropriately.? Care providers, pharmacy, and demographics verified. Patient?s daughter had been in the ED with patient however had left just prior to social media designer arrival to go get something to eat. Admitting Diagnosis: Acute Pancreatitis Other diagnosis history: Including but not limited to: Prostate cancer, injury of back, head and neck, Hepatitis, Transient Ischemic Attack, Diverticulitis, Smoker, Marijuana Use, Reduction of nasal fracture, Hypertension and Restless Legs Syndrome. PCP: Mary SAWYER Specialists: Urologist: Dr. Almanza Preferred Pharmacy: [facility] Insurance: [employer] Prescription Benefit: Yes, with some $4 co-pays. Living Will/HPOA: ?No and not interested at this time. LNOK: Patient has one daughter, Reena Coronado, of [place]. Patient reported he also has one living brother with whom he?s close to. Living Arrangements: Patient lives alone in an apartment. Patient denied having to go up/down any stairs if he doesn?t want to and denied any environmental barriers. Transportation: Patient drives. DME: None and none needed. HHC: Denied. SNF/Rehab: Denied. Community Resources: Denied and denied a current need. Behavioral Health History: Denied. Patient goals: Patient wishes to discharge home when medically ready, and denies need for home health care at this time. Patient denies any further needs or concerns at this time. Disposition Plan: Admission to acute; RN CM/SW to follow for discharge planning needs that may arise. Denise Sanchez, PRACTICE MANAGERS, COUNTY TREASURER
[2024-08-26] MEDS: 0.9% Normal Saline (1000mL) 1,000 ML 100 ML IV (20:57)
[2024-08-26] MEDS: Morphine 2 MG/ML Syringe IV (22:26)
[2024-08-27] MEDS: Morphine 2 MG/ML Syringe IV ×3 (01:50→17:07)
[2024-08-27 02:00] VITALS: BP 164/89; PULSE 92; RESP 16; TEMP 36.9; O2SAT 98
[2024-08-27] MEDS: Ondansetron 4 MG/2 ML Vial IV ×2 (02:02→12:58)
[2024-08-27] MEDS: 0.9% Normal Saline (1000mL) 1,000 ML 100 ML IV (06:42)
[2024-08-27 07:09] LABS: Absolute Lymphocyte Count 1.85 X10^3/uL (0.83-4.51); Absolute Neutrophil Count 6.4 X10^3/uL (2.0-7.7); Basophil# 0.03 X10^3/uL; Basophil% 0.3 % (0-1); Eosinophil# 0.03 X10^3/uL; Eosinophils% 0.3 % (0-5); Hematocrit 38.7 % (40-54); Hemoglobin 13.6 g/dL (13.0-16.5); Lymphocyte # 1.85 X10^3/ul (0.83-4.51); Lymphocyte % 20.2 % (19-41); Mean Corp Hgb Conc 35.1 g/dL (32-36); Mean Corpuscular Hgb 32.2 pg (27.0-32.0); Mean Corpuscular Volume 91.5 fL (80-94); Mean Platelet Vol. 10.7 fl (6.2-12.0); Monocyte# 0.89 X10^3/uL; Monocyte% 9.7 % (0-10); NRBC Flagged by Analyzer 0 % (0-5); Neutrophil # 6.36 X10^3/uL (2.7-7.7); Neutrophil % 69.3 % (47-70); Platelet Count 223 K/mm3 (150-450); RBC Distribution Width CV 13.8 % (11.6-14.6); RBC Distribution Width SD 46.7 fl (35.1-43.9); Red Blood Count 4.23 M/mm3 (4.6-6.2); White Blood Count 9.2 K/mm3 (4.4-11.0)
[2024-08-27 07:29] LABS: ALB/GLOB Ratio 1.8 RATIO (0.9-2.4); AST(SGOT) 16 U/L (<=37); Alanine Aminotransfer ALT/SGPT 8 U/L (<=46); Albumin, Serum 3.7 g/dL (3.4-4.8); Alkaline Phosphatase 73 U/L (40-129); Anion Gap 10 (5-15); BUN 17 mg/dL (4-19); BUN/Creat Ratio 22.5 RATIO (10-20); Calcium,Total 8.6 mg/dL (7.6-11.0); Chloride 105 mmol/L (98-108); Creatinine, Serum 0.75 mg/dL (0.70-1.20); EST Glomerular Filtration Rate 98 (>60); Estimated Creatinine Clearance 79.38 ml/min (50-250); Glucose 95 mg/dL (70-99); Potassium 3.9 mmol/L (3.3-5.1); Protein, Total 5.7 g/dL (5.9-8.4); Sodium Level 139 mmol/L (133-145); Total Bilirubin 0.56 mg/dL (0.00-1.30)
[2024-08-27 09:53] VITALS: BP 163/98; PULSE 84; RESP 18; TEMP 36.8; O2SAT 98
[2024-08-27] MEDS: Enoxaparin 40 MG/0.4 ML Syringe SC (10:02)
--- NOTE | 2024-08-27 10:54 | PCM.PN.HOSP ---
Subjective Subjective Feels better today, pain is much improved Objective Data Objective Data Vital Signs: Vital Signs Temp Pulse Resp BP Pulse Ox O2 Del Method 98.2 F 84 18 163/98 H 98 Room Air 08/27/24 09:53 08/27/24 09:53 08/27/24 09:53 08/27/24 09:53 08/27/24 09:53 08/27/24 09:54 Oxygen Delivery Method Room Air Weight: 140 lb Body Mass Index (BMI) 19.0 Intake & Output: Intake and Output for Last 24 Hours 08/26/24 08/27/24 08/28/24 03:59 03:59 03:59 Intake Total 1353.33 / 1353.33 Balance 1353.33 / 1353.33 Lab / Micro Data 08/27/24 05:45 08/27/24 05:45 Labs: Laboratory Results - last 24 hr 08/26/24 14:57: WBC 10.2, RBC 4.90, Hgb 15.5, Hct 44.8, MCV 91.4, MCH 31.6, MCHC 34.6, RDW Std Deviation 46.0 H, RDW Coeff of Randy 13.5, Plt Count 257, MPV 10.2, Immature Gran % (Auto) 0.200, Neut % (Auto) 42.7 L, Lymph % (Auto) 13.9 L, [place] % (Auto) 6.4, Eos % (Auto) 36.3 H, Baso % (Auto) 0.5, Absolute Neuts (auto) 4.4, Absolute Lymphs (auto) 1.42, Nucleated RBC % 0, Platelet Estimate A, RBC Morphology NORM C+C, Sodium 136, Potassium 4.0, Chloride 101, Carbon Dioxide 20.7 L, Anion Gap 14, BUN 15, Creatinine 0.83, Estim Creat Clear Calc 76.67, Est GFR (MDRD) Non-Af 95, BUN/Creatinine Ratio 17.6, Glucose 119 H, Calcium 9.3, Total Bilirubin 0.71, AST 18, ALT 12, Alkaline Phosphatase 93, Total Protein 6.9, Albumin 4.4, Globulin 2.6, Albumin/Globulin Ratio 1.7, Lipase 429 H 08/27/24 05:45: WBC 9.2, RBC 4.23 L, Hgb 13.6, Hct 38.7 L, MCV 91.5, MCH 32.2 H, MCHC 35.1, RDW Std Deviation 46.7 H, RDW Coeff of Randy 13.8, Plt Count 223, MPV 10.7, Immature Gran % (Auto) 0.200, Neut % (Auto) 69.3, Lymph % (Auto) 20.2, [place] % (Auto) 9.7, Eos % (Auto) 0.3, Baso % (Auto) 0.3, Absolute Neuts (auto) 6.4, Absolute Lymphs (auto) 1.85, Nucleated RBC % 0, Sodium 139, Potassium 3.9, Chloride 105, Carbon Dioxide 23.0, Anion Gap 10, BUN 17, Creatinine 0.75, Estim Creat Clear Calc 79.38, Est GFR (MDRD) Non-Af 98, BUN/Creatinine Ratio 22.5 H, Glucose 95, Calcium 8.6, Total Bilirubin 0.56, AST 16, ALT 8, Alkaline Phosphatase 73, Total Protein 5.7 L, Albumin 3.7, Globulin 2.0 L, Albumin/Globulin Ratio 1.8 Physical Exam Narrative General: Alert, Oriented x3, Cooperative, No apparent distress HEENT: Atraumatic, PERRLA, EOMI, Normocephalic Oral: Moist Mucosa Neck: Supple, No JVD Lungs: Diminished, Normal air movement, No rhonchi, No wheeze, No rales Cardiovascular: Regular rate, Regular Rhythm, Normal S1, Normal S2, No murmurs Abdomen: Soft, nontender, Non-Distended, No Hepato-splenomegaly Extremities: No edema, Capillary Refill Less than 3 Seconds Skin: No rashes, No breakdown Musculoskeletal: No Tenderness to Palpation of Joints or Extremities Neurological: No focal neurological deficits, Motor Exam 5/5 strength throughout, Sensory exam intact to light touch and pain Psych/Mental Status: Normal Affect, Appropriate Assessment & Plan Assessment/Plan (1) Acute pancreatitis: PLAN: Plan 1. Postprocedural acute pancreatitis ? advanced to a low-fat diet ? IV fluids ? Pain management ?LFTs are normal with normal bilirubin today 2. Tobacco abuse ? He smokes about a pack a day ? Will continue with nicotine replacement DVT: Lovenox Charges/Coding Visit Charges Inpatient E&M: 76180 Subs Hosp L2
[2024-08-27] MEDS: 0.9% Normal Saline (1000mL) 1,000 ML 250 ML IV ×3 (12:52→21:45)
[2024-08-27] MEDS: 0.9% Saline Lock 10 ML Syringe IV (12:58)
[2024-08-27 14:02] VITALS: BP 167/94; PULSE 70; RESP 18; TEMP 37; O2SAT 98
[2024-08-27] MEDS: Mag Hydrox/Al Hydrox/Simeth 30 ML UDC 15 ML PO (18:45)
[2024-08-27 21:00] VITALS: BP 187/91; PULSE 74; RESP 16; TEMP 36.6; O2SAT 99
[2024-08-28 03:00] VITALS: BP 158/98; PULSE 85; RESP 16; TEMP 36.8; O2SAT 95
[2024-08-28] MEDS: Ondansetron 4 MG/2 ML Vial IV (06:53)
[2024-08-28] MEDS: 0.9% Saline Lock 10 ML Syringe IV (06:53)
[2024-08-28 09:20] VITALS: BP 177/90; PULSE 66; RESP 18; TEMP 36.7; O2SAT 96
[2024-08-28] MEDS: Polyethylene Glycol 3350 17 GM PACKET PO (09:27)
[2024-08-28] MEDS: Enoxaparin 40 MG/0.4 ML Syringe SC (09:27)
--- NOTE | 2024-08-28 09:42 | PCM.PN.HOSP ---
Subjective Subjective Doing well, minimal pain overnight. Will trial him on a diet again the day Objective Data Objective Data Vital Signs: Vital Signs Temp Pulse Resp BP Pulse Ox O2 Del Method 98.0 F 66 18 177/90 H 96 Room Air 08/28/24 09:20 08/28/24 09:20 08/28/24 09:20 08/28/24 09:20 08/28/24 09:20 08/28/24 09:22 Oxygen Delivery Method Room Air Weight: 140 lb Body Mass Index (BMI) 19.0 Intake & Output: Intake and Output for Last 24 Hours 08/27/24 08/28/24 08/29/24 03:59 03:59 03:59 Intake Total 3945.00 / 3945.00 1000 / 1000 Balance 3945.00 / 3945.00 1000 / 1000 Lab / Micro Data 08/27/24 05:45 08/27/24 05:45 Physical Exam Narrative General: Alert, Oriented x3, Cooperative, No apparent distress HEENT: Atraumatic, PERRLA, EOMI, Normocephalic Oral: Moist Mucosa Neck: Supple, No JVD Lungs: Diminished, Normal air movement, No rhonchi, No wheeze, No rales Cardiovascular: Regular rate, Regular Rhythm, Normal S1, Normal S2, No murmurs Abdomen: Soft, nontender, Non-Distended, No Hepato-splenomegaly Extremities: No edema, Capillary Refill Less than 3 Seconds Skin: No rashes, No breakdown Musculoskeletal: No Tenderness to Palpation of Joints or Extremities Neurological: No focal neurological deficits, Motor Exam 5/5 strength throughout, Sensory exam intact to light touch and pain Psych/Mental Status: Normal Affect, Appropriate Assessment & Plan Assessment/Plan (1) Acute pancreatitis: PLAN: Plan 1. Postprocedural acute pancreatitis ? advanced to a low-fat diet again today and see if he tolerates without any pain ? IV fluids ? Pain management ?LFTs are normal with normal bilirubin today 2. Tobacco abuse ? He smokes about a pack a day ? Will continue with nicotine replacement DVT: Lovenox Charges/Coding Visit Charges Inpatient E&M: 68917 Subs Hosp L2
--- NOTE | 2024-08-28 13:26 | DCINST_ITS ---
Discharge Instructions Diet Discharge Diet: Light diet - advance as tolerated and Low fat / Low cholesterol DC O2, CPAP, BIPAP needs Home O2 Discharge instructions: No Dressing / Incision Discharge Activity: Return to Normal Activity Dressing / Incision Call your doctor if you observe: Fever of 101 or Higher, Shortness of breath, Dizziness, Fainting spells, Swelling in the ankles, Chest pain and Increased palpitations (irregular heartbeat) Follow Up Care Test Results: Test results from this visit will be discussed in further detail at your follow- up appointment, if applicable. Discharge Plan Admission Admit Date/Time: 08/26/24 17:56 Attending Provider: Chris Lee Primary Care Provider: Mary Bermudez Instructions Patient Instructions: Understanding Pancreatitis, ED Pancreatitis Discharge Orders/Prescriptions Prescriptions: New ondansetron 4 mg tablet,disintegrating 4 mg PO Q8H PRN (Reason: nausea and vomiting) Qty: 14 0RF Continued oxybutynin chloride 5 mg tablet extended release 24hr 5 mg PO QHS Patient Comments: PT TAKES AT BEDTIME. naproxen sodium [Aleve] 220 mg capsule 220 mg PO DAILY PRN (Reason: pain) Referrals / Follow Up: Mary Bermudez, [employer] [Primary Care Provider] - Within 1 Week Disposition Disposition (needs filled in before D/C Order can be placed): Home, Self Care
--- NOTE | 2024-08-28 13:55 | CASEMGMT ---
RN CM into pt room, pt sitting up in bed in no distress. Pt denies any homegoing needs. Pt reports he is indep at home. Pt seen ambulating the unit indep earlier. Pt ready for dc home.
[2024-08-28 14:25] VITALS: BP 173/107; PULSE 81; RESP 18; TEMP 37; O2SAT 97
--- NOTE | 2024-08-28 14:27 | NURSING ---
Pt states Dr Hernandez is aware of his elevated bp, and had belkis the pt it'll come down when he gets home, and needs to follow up within one week with Mary ayala.
--- NOTE | 2024-08-28 14:38 | PCM.DC.SUM ---
Providers Date of Admission: 08/26/24 Primary Care Physician: AUTUMN Alvarez Reason For Visit: POST PROCEDURE PANCREATITIS Diagnosis Discharge Diagnosis (1) Acute pancreatitis: Status: Acute Code(s): K85.90 - Acute pancreatitis without necrosis or infection, unspecified Medications at Discharge Home Medications naproxen sodium 220 mg capsule (Aleve) 220 mg PO DAILY PRN pain 08/26/24 oxybutynin chloride 5 mg tablet,extended release 24 hr 5 mg PO QHS urine issues 08/26/24 ondansetron 4 mg disintegrating tablet 4 mg PO Q8H PRN nausea and vomiting #14 tabs 08/28/24 Hospital Course Operations None Procedures None Summary of Care Provided Minutes Spent on Discharge: 39 Hospital Course: Per HPI: LETA PIMENTEL, is a 69 M who presents to the hospital pain with epigastric abdominal pain that goes to his back as well as some nausea. He has been n.p.o. for 48 hours, yesterday he had an ERCP that demonstrated biliary papillary stenosis as well as filling defect consistent with a stone and sludge on the cholangiogram. He also has single localized biliary stricture that appeared benign, cells were sent for cytology. No stent was placed and the duct was swept. After the procedure he continued to have abdominal pain and presents today with an elevated lipase to 429 consistent with postprocedural pancreatitis. Hospital Course: 1. Postprocedural acute pancreatitis?69-year-old male presented to the hospital with choledocholithiasis and biliary stenosis. He underwent ERCP with a biliary stricture that was dilated and sphincterotomy and his duct was swept. He went home and started having abdominal pain and presented back to the hospital the next day where he was found to have a pancreatitis with a slightly elevated lipase of 429, LFTs were normal. He was made n.p.o. and started on IV fluids and the next day he was saying that he has not had any more abdominal pain she was started on a low-fat diet however this caused a little bit of pain so we backed off and then today he said that his pain was resolved again or was very minimal and he did not have any significant increase in pain with p.o. intake. He also has been complaining of some constipation so he was given a dose of MiraLAX today. He request to be discharged and I discussed with him the plan for discharge and he expressed understanding the risks and benefits of going home and would like to go home today. I do recommend Tylenol and Advil to treat his abdominal pain. I will also give him some Zofran to help treat his nausea. 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 Physical Exam Narrative General: Alert, Oriented x3, Cooperative, No apparent distress HEENT: Atraumatic, PERRLA, EOMI, Normocephalic Oral: Moist Mucosa Neck: Supple, No JVD Lungs: Diminished, Normal air movement, No rhonchi, No wheeze, No rales Cardiovascular: Regular rate, Regular Rhythm, Normal S1, Normal S2, No murmurs Abdomen: Soft, nontender, Non-Distended, No Hepato-splenomegaly Extremities: No edema, Capillary Refill Less than 3 Seconds Skin: No rashes, No breakdown Musculoskeletal: No Tenderness to Palpation of Joints or Extremities Neurological: No focal neurological deficits, Motor Exam 5/5 strength throughout, Sensory exam intact to light touch and pain Psych/Mental Status: Normal Affect, Appropriate Medical Records Data Medical Nutrition Assessment Dietitian: Malnutrition Criteria Met Start: 08/28/24 13:07 Freq: Status: Active Protocol: Document 08/28/24 13:07 JENNIFER (Rec: 08/28/24 13:07 JENNIFER [id number]) Nutrition Malnutrition Evidence of Yes Malnutrition Exists Malnutrition (severe Acute Illness/Injury ): Evidenced By Suboptimal Energy Intake (Severe),Weight Loss (Severe) Clinical Problem Acute Disease or Injury Related Malnutrition Etiology related to pancreatitis Signs/Symptoms as evidenced by po intake meeting <75% of est nutritional needs and ~4% 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 Dietitian Continue Regular Fat Restricted diet as ordered Recommendations/ Monitor for changes in pt nutritional status and make Changes additional rec as indicated Weight / BMI Weight Weight: 140 lb Body Mass Index (BMI) 19.0 ABG / Lab / Microbiology Data 08/27/24 05:45 08/27/24 05:45 D/C Instructions Discharge Diet: Light diet - advance as tolerated and Low fat / Low cholesterol Call your doctor if you observe: Fever of 101 or Higher, Shortness of breath, Dizziness, Fainting spells, Swelling in the ankles, Chest pain and Increased palpitations (irregular heartbeat) DC O2, CPAP, BIPAP Needs Home O2 Discharge instructions: No Meaningful Use Info Meaningful Use Meaningful Use Diagnoses (Choose all that apply): None applicable Ischemic Stroke Statin Dosing Therapy Reference: STATIN DOSE THERAPY REFERENCE: * Patients > 75 years receive moderate or high dose statin therapy. * Patients 75 years or YOUNGER should receive HIGH intensity statin dose unless contraindicated. You will be required to document reason for non-treatment if statin daily dose does not meet guidelines. HIGH DOSE STATIN THERAPY DAILY Atorvastatin > than or = to 40 mg Rosuvastatin > than or = to 20 mg Amlodipine + Atorvastatin > than or = to 2.5/40 mg Ezetimibe + Simvastatin 10/80 mg Simvastatin 80mg Discharge Plan Admission Admit Date/Time: 08/26/24 17:56 Attending Provider: Chris Lee Primary Care Provider: Mary Bermudez Instructions Patient Instructions: Understanding Pancreatitis, ED Pancreatitis Discharge Orders/Prescriptions Prescriptions: New ondansetron 4 mg tablet,disintegrating 4 mg PO Q8H PRN (Reason: nausea and vomiting) Qty: 14 0RF Continued oxybutynin chloride 5 mg tablet extended release 24hr 5 mg PO QHS Patient Comments: PT TAKES AT BEDTIME. naproxen sodium [Aleve] 220 mg capsule 220 mg PO DAILY PRN (Reason: pain) Referrals / Follow Up: Mary Bermudez NP-C [Primary Care Provider] - Within 1 Week Disposition Disposition (needs filled in before D/C Order can be placed): Home, Self Care Charges/Coding Visit Charges Inpatient E&M: 89067 Disch Hosp >30min
== END 2024-08-28 15:18 | disposition home or self-care (01) | DRG 439 ==
LOC: ED 17:46 → MS3 19:09
PROVIDERS: Admitting Provider Family Medicine; Emergency Provider Emergency Medicine; PCP Nurse Practitioner Family; Visit Provider Family Medicine
DX: K85.80 Other acute pancreatitis without necrosis or infection (principal); K91.89 Other postprocedural complications and disorders of digestive system; F17.210 Nicotine dependence, cigarettes, uncomplicated; I10 Essential (primary) hypertension; K80.20 Calculus of gallbladder without cholecystitis without obstruction; K85.30 Drug induced acute pancreatitis without necrosis or infection; Z86.73 Personal history of transient ischemic attack (TIA), and cerebral infarction without residual deficits
CPT/HCPCS: 36415; 80053; 83690; 85025; 99283; A4216; J2405